=== PATIENT | male | born 1950 | race Caucasian/White ===

== ENCOUNTER 2018-12-20 13:53 | Inpatient (IN) ==
[2018-12-20 14:34] LABS: Bilirubin,Urine Negative (Negative); Blood,Urine Negative (Negative); Clarity,Urine Clear (Clear); Color,Urine Yellow (Yellow); Glucose,Urine (UA) Normal (Normal); Ketones,Urine Negative (Negative); Leukocyte Esterase,Urine Negative (Negative); Nitrite,Urine Negative (Negative); PH,Urine 5.5 pH Units (5.0-8.0); Protein,Urine Negative (Neg-Trace); Urobilinogen,Urine Normal (Normal)
[2018-12-20 15:10] LABS: Basophils % 0.1 %; Eosinophils # 0.2 K/mcL (0.0-0.6); Eosinophils % 2.8 %; Hematocrit 37.9 % (37.5-50.1); Hemoglobin 13.1 g/dL (12.9-16.9); Immature Granulocytes % 0.5 % (0-4); Lymphocytes # 0.9 K/mcL (0.6-4.6); Lymphocytes % 11.4 %; Mean Corpuscular HGB Conc 34.6 g/dL (31.6-35.5); Mean Corpuscular Hemoglobin 33.5 pg (28.0-33.3); Mean Corpuscular Volume 96.9 fL (83.0-100.0); Mean Platelet Volume 11.3 fL (9.4-12.4); Monocytes # 0.7 K/mcL (0.0-1.3); Monocytes % 7.9 %; Neutrophils # 6.4 K/mcL (1.6-8.9); Platelet Count 192 K/mcL (140-400); Red Blood Count 3.91 M/mcL (4.19-5.50); Red Cell Distribution Width 11.9 % (11.5-14.5); Segmented Neutrophils % 77.3 %
[2018-12-20 15:37] LABS: Calcium 9.2 mg/dL (8.6-10.3); Potassium 3.5 mEq/L (3.5-5.1)
[2018-12-20] MEDS ORDERED: Isovue-370 500 ML BOTTLE IVP ONE (17:12)
--- NOTE | 2018-12-20 17:38 | Emergency Department Note ---
Disposition Clinical Impression: AMISHA (acute kidney injury) Disposition: Admitted As Inpatient Condition: Fair Forms: ED Satisfaction Letter General Adult HPI - General Chief complaint: ED Recheck/Abnormal Lab/Rx Stated complaint: Renal Failure Time Seen by Provider: 12/20/18 16:04 Source: patient Limitations: no limitations - History of Present Illness HPI Narrative: Patient is a 68-year-old male presents to emergency room with complaints of possible kidney failure. The patient was getting preoperative testing earlier today, the patient apparently did have elevated creatinine and they were concerned for possible kidney failure. They sent him here to the emergency room for further evaluation. The patient is supposed to have a bladder surgery. The patient apparently has been having some difficulty with urination. Has been having abdominal discomfort with urination. He states over the past couple of days he has had some mild left lower quadrant abdominal discomfort that he rates about 3 and a 10 scale. Nothing makes his symptoms better or worse except for urination. Patient denies any hematuria, dysuria. The patient denies any fevers or chills. He has had no chest pain or shortness of breath. He does complain of some generalized weakness. The patient denies any back pain. The patient denies any rash. Pain Scale: 2 - Related Data Allergies Allergy/AdvReac Type Severity Reaction Status Date / Time No Known Allergies Allergy Verified 12/20/18 10:05 Review of Systems: As mentioned per history of present illness and as follows. Constitutional: Negative for chills or fever HENT: Negative for sore throat. Eyes: Negative for visual disturbance Respiratory: Negative for shortness of breath. Cardiovascular: Negative for palpitations. Gastrointestinal: Positive for abdominal pain Genitourinary: Negative for dysuria Musculoskeletal: Negative for back pain. Skin: Negative for rash. Neurological: Negative for focal weakness Psychiatric/Behavioral: Negative for depression Past Medical History - Past Medical History Medical history: Reports: hypertension Psychiatric history: Reports: no psych history - Social History Smoking Status: Never smoker Smokeless Tobacco Status: No Alcohol use: Reports: rarely Drug use: Reports: none Physical Exam PHYSICAL EXAM Constitutional: Well developed, Well nourished, No acute distress, Non-toxic appearance. HENT: Normocephalic, Atraumatic, Bilateral external ears normal, Oropharynx moist, No oral exudates, Nose normal. Neck- Normal range of motion, No tenderness, Supple. Eyes: PERRL, EOMI, Conjunctiva normal,. Cardiovascular: Regular rate and rhythm without clicks, rubs, gallops or murmurs. Respiratory: Normal breath sounds, No respiratory distress, No wheezing, rhonchi, or crackles. GI: Soft, mild tenderness to left lower quadrant exam, no evidence of guarding or peritoneal signs. Bowel sounds are active. Musculoskeletal: Good range of motion in all major joints. No tenderness to palpation or major deformities noted. +5/5 strength noted to all extremities. Integument: Warm, Dry, No erythema, No rash. No edema. Neurologic: Alert & oriented x 3, Normal sensory function, No focal deficits noted. CN II-XII grossly intact. - General Limitations: no limitations General appearance: alert, in no apparent distress Course Vital Signs Temperature 98.4 F 12/20/18 14:05 Pulse Rate 80 12/20/18 14:05 Respiratory Rate 14 12/20/18 14:05 Blood Pressure 149/80 12/20/18 14:05 O2 Sat by Pulse Oximetry 97 12/20/18 14:05 Temperature 98.4 F 12/20/18 14:05 Pulse Rate 79 12/20/18 17:22 Respiratory Rate 16 12/20/18 17:22 Blood Pressure 153/84 12/20/18 17:22 O2 Sat by Pulse Oximetry 100 12/20/18 17:22 Oxygen Delivery Oxygen Delivery Room Air Medical Decision Making - [facility] Narrative Medical decision making narrative: Patient has had evidence of acute kidney injury. The patient is having CAT scan that shows evidence of cystitis with hydroureter and hydronephrosis, no evidence of urinary tract infection. At this point time patient is not septic. The patient I do feel needs further evaluation and admission. The patient will be admitted in stable condition to the floor. Case was discussed in full detail with the hospitalist. Final impression 1. Acute kidney injury 2. Bilateral hydronephrosis - Lab Data Result diagrams: 12/20/18 14:49 12/20/18 14:49 Lab Results 12/20/18 12/20/18 12/20/18 Range/Units 14:25 14:49 14:49 WBC 8.3 (4.3-11.1) K/mcL RBC 3.91 L (4.19-5.50) M/mcL Hgb 13.1 (12.9-16.9) g/dL Hct 37.9 (37.5-50.1) % MCV 96.9 (83.0-100.0) fL MCH 33.5 H (28.0-33.3) pg MCHC 34.6 (31.6-35.5) g/dL RDW 11.9 (11.5-14.5) % Plt Count 192 (140-400) K/mcL MPV 11.3 (9.4-12.4) fL Immature Gran % 0.5 (0-4) % Seg Neutrophils % 77.3 % Lymphocytes % 11.4 % Monocytes % 7.9 % Eosinophils % 2.8 % Basophils % 0.1 % Neutrophils # 6.4 (1.6-8.9) K/mcL Lymphocytes # 0.9 (0.6-4.6) K/mcL Monocytes # 0.7 (0.0-1.3) K/mcL Eosinophils # 0.2 (0.0-0.6) K/mcL Basophils # 0.0 (0.0-0.2) K/mcL Sodium 145 (136-145) mEq/L Potassium 3.5 (3.5-5.1) mEq/L Chloride 107 (98-107) mEq/L Carbon Dioxide 27 (23-29) mEq/L BUN 34 H (8-23) mg/dL Creatinine 3.17 H (0.70-1.30) mg/dL Est GFR ( Amer) 24 L (> 60) Est GFR (Non-Af Amer) 20 L (> 60) BUN/Creatinine Ratio 11 (6-26) Glucose 137 H (70-105) mg/dL Calculated Osmolality 310 H (280-300) Calcium 9.2 (8.6-10.3) mg/dL Urine Color Yellow (Yellow) Urine Clarity Clear (Clear) Urine pH 5.5 (5.0-8.0) pH Units Ur Specific [place] 1.010 (1.010-1.025) Urine Protein Negative (Neg-Trace) mg/dL Urine Glucose (UA) Normal (Normal) mg/dL Urine Ketones Negative (Negative) mg/dL Urine Blood Negative (Negative) Urine Nitrite Negative (Negative) Urine Bilirubin Negative (Negative) Urine Urobilinogen Normal (Normal) mg/dL Ur Leukocyte Esterase Negative (Negative) Ur Culture Indicated? NO (NO) - Radiology Data Abdomen/Pelvis CT 12/20/18 17:15 IMPRESSION: 1. Prominent diffuse urinary bladder wall thickening and perivesicular stranding, which could be related to severe cystitis. Underlying malignancy cannot be excluded. Findings have progressed when compared to 11/30/2018. If not already done, correlation with cystoscopy is recommended. 2. Mild bilateral hydronephrosis and hydroureter, likely secondary to changes at the urinary bladder, increased from the previous study. No urolithiasis. 3. Hepatic steatosis. 4. Mild prostatomegaly. D/ / 12/20/2018 18:57:43 Patience Maciel / apolinar Interpreting Provider: Patience Maciel
[2018-12-20] MEDS ORDERED: *HR* HYDROcodone/Acet 5/325 mg TABLET PO PRN (21:09)
[2018-12-20] MEDS ORDERED: Acetaminophen 325 MG TABLET PO PRN (21:09)
[2018-12-20] MEDS ORDERED: Ondansetron ODT 4 MG TAB.RAPDIS SL PRN (21:09)
[2018-12-20] MEDS ORDERED: Naloxone 0.4 MG/ML INJ IVP PRN (21:09)
--- NOTE | 2018-12-20 21:44 | Internal Med History&Physical ---
<Viji Odonnell - Last Filed: 12/21/18 03:32> Date of Encounter: 12/21/18 Time of Encounter: 20:30 Internal Medicine - H&P: HPI Chief complaint: dysuria History of present illness: Mr. Meredith is a 68 year old male with past medical history of hypertension who was asked to present to the ED by his urologist due to laboratory findings of worsening renal function. He reports 6 weeks ago he started to have pain with urination and was treated by his PCP for a UTI. He reports after the antibiotics his pain did not resolve and was subsequently referred to a urologist. His urologist did a CT of the abdomen and pelvis on 11/23/18 which showed abnormal wall thickening of the urinary bladder on the left with nodular masslike appearance with pericystic stranding and concern for malignancy. He then underwent a cystoscopy on 12/06/18 which showed large mass seen on the posterior wall toward the trigone and the mass had some papillary components as well as inflammatory appearing components. He was scheduled to have surgical intervention but today had labs drawn at his urology office which showed creatinine of 3.21 and GFR of 19. He also reported not having a normal bowel movement in the past 1 month. And when asked he reported losing 10 pounds unintentionally since August 2018. In the ED his repeat labs show creatinine of 3.17 and GFR of 20 while on 11/30 his creatinine was 0.90 and GFR was also above 60. Today he is complaining of flank pain which is transient and described as stabbing in sensation. He is also complaining of pelvic pain and abdominal pain. Past Med Surg Social Fam HX - Past Medical History Medical history: hypertension Psychiatric history: no psych history - Past Surgical History Surgical History: appendectomy - Social History Smoking Status: Never smoker Smokeless Tobacco Status: No Alcohol use: rarely Drug use: none - Family History Mother Hx Family Cardiac Disorders: Yes (hypertension ) Internal Medicine - H&P: Meds Doxazosin [Cardura] 4 mg PO HS 12/20/18 [History] Lisinopril-HCTZ 10-12.5 [Prinzide 10-12.5] 1 each PO DAILY 12/20/18 [History] Allergy/AdvReac Type Severity Reaction Status Date / Time No Known Allergies Allergy Verified 12/20/18 10:05 All Systems PM: A 10-system review of systems was performed and is negative for pertinent findings except as documented above in the HPI. - Constitutional Constitutional: no chills, no fever(s), no weakness - EENT Eyes: no blurry vision, no loss of vision, no pain Nose, mouth and throat: no dysphagia, no mouth pain, no odynophagia - Cardiovascular Cardiovascular ROS IM: no chest pain, no diaphoresis, no dyspnea, no dyspnea on exertion, no palpitations - Respiratory Respiratory: no cough, no dyspnea, no dyspnea on exertion, no wheezing, no chest congestion - Gastrointestinal Gastrointestinal: no abdominal pain, no dysphagia, no hematemesis, no nausea, no vomiting - Genitourinary Genitourinary ROS male: dysuria, flank pain, urinary incontinence, no hematuria - Musculoskeletal Musculoskeletal ROS IM: back pain (bilateral flank), no numbness, no stiffness - Integumentary Integumentary IM: no erythema, no new lesions, no pruritus, no rash - Neurological Neurological ROS: no confusion, no numbness, no paresthesias, no tremor(s) - Psychiatric Psychiatric: no anxiety, no depression - Constitutional Vitals: Temp Pulse Resp BP Pulse Ox 98.4 F 74 16 175/81 100 12/20/18 14:05 12/20/18 20:46 12/20/18 20:46 12/20/18 20:46 12/20/18 20:46 Exam: Gen: Vitals noted. No acute distress. Appears comfortable. Eyes: anicteric sclerae, moist conjunctivae; no lid-lag; Pupils equal and reactive to light HENT: Atraumatic; oropharynx clear with moist mucous membranes and no mucosal ulcerations; normal hard and soft palate Neck: Trachea midline; supple, no thyromegaly or lymphadenopathy Cardiac: RRR, no murmur, +S1/S2. No JVD noted. Pulmonary: CTA bilaterally, no wheezes, rales or rhonchi, equal chest expansion Abdomen: soft, no guarding. No masses or hepatosplenomegaly, diffuse tenderness at all quadrants with worse tenderness in pelvic region MSK: ROM intact, no joint swelling noted, bilateral flank tenderness Extremities: no edema, nontender calf Skin: Normal temperature, turgor; no rash, ulcers or subcutaneous nodules Neuro: moves all extremities, no focal deficits. Psych: Appropriate mood and behavior. A&Ox3 Internal Med - H&P Results - Labs CBC & Chem 7: 12/20/18 14:49 12/20/18 14:49 Labs: Short CBC 12/20/18 Range/Units 14:49 WBC 8.3 (4.3-11.1) K/mcL Hgb 13.1 (12.9-16.9) g/dL Hct 37.9 (37.5-50.1) % Plt Count 192 (140-400) K/mcL Neutrophils # 6.4 (1.6-8.9) K/mcL BMP 12/20/18 14:49 Sodium 145 Potassium 3.5 Chloride 107 Carbon Dioxide 27 BUN 34 H Creatinine 3.17 H Glucose 137 H Calcium 9.2 Urine 12/20/18 Range/Units 14:25 Urine Color Yellow (Yellow) Urine Clarity Clear (Clear) Urine pH 5.5 (5.0-8.0) pH Units Ur Specific [place] 1.010 (1.010-1.025) Urine Protein Negative (Neg-Trace) mg/dL Urine Glucose (UA) Normal (Normal) mg/dL - Impressions ITS Impressions Abdomen/Pelvis CT 12/20/18 17:15 IMPRESSION: 1. Prominent diffuse urinary bladder wall thickening and perivesicular stranding, which could be related to severe cystitis. Underlying malignancy cannot be excluded. Findings have progressed when compared to 11/30/2018. If not already done, correlation with cystoscopy is recommended. 2. Mild bilateral hydronephrosis and hydroureter, likely secondary to changes at the urinary bladder, increased from the previous study. No urolithiasis. 3. Hepatic steatosis. 4. Mild prostatomegaly. D/ / 12/20/2018 18:57:43 Patience Maciel / apolinar Interpreting Provider: Patience Maciel - Assessment and Plan (1) Hydronephrosis Current Visit: Yes Status: Acute Assessment and plan: Noted to have bilateral hydronephrosis on CT Likely secondary to obstruction due to bladder mass He is producing urine But creatinine has increased to 3.17 with decrease in GFR CT of the abdomen and pelvis shows mild bilateral hydronephrosis and hydroureter Urology consulted for recommendations on the bladder mass Continue to monitor output Qualifiers: Hydronephrosis type: unspecified Qualified Code(s): N13.30 - Unspecified hydronephrosis (2) Bladder mass Current Visit: Yes Status: Acute Assessment and plan: Was following outpatient with Urology for dysuria Had a cystoscopy on 12/06/18 which showed masslike lesion in the bladder CT today shows: The urinary bladder is incompletely distended. There is moderate diffuse urinary bladder wall thickening and perivesicular stranding, which is increased from the previous study. Urology consulted NPO after midnight (3) Dysuria Current Visit: Yes Status: Acute Assessment and plan: Patient complaining of dysuria ongoing for 6 weeks Has been treated for UTI and urinalysis upon admission shows no concern for in fectious cause Likely secondary to the mass like lesion in the bladder Urinalysis shows no bacteria CT shows: Prominent diffuse urinary bladder wall thickening and perivesicular stranding, which could be related to severe cystitis. Underlying malignancy cannot be excluded. Findings have progressed when compared to 11/30/2018 Urology consulted (4) AMISHA (acute kidney injury) Current Visit: Yes Status: Acute Assessment and plan: AMISAH likely secondary to post renal due to suspected obstruction postrenally Urology consulted for recommendations for the bladder mass Will continue to monitor BMP Hold nephrotoxins to avoid further renal injury Continue post voidal bladder scan and if more than 100 cc of urine remains post voidal, insert archuleta Continue gentle hydration Nephrology consulted (5) Hypertension Current Visit: Yes Status: Acute Assessment and plan: Hold lisinopril given AMISHA Hydralazine PRN ordered Qualifiers: Hypertension type: essential hypertension Qualified Code(s): I10 - Essential (primary) hypertension (6) Constipation Current Visit: Yes Status: Acute Assessment and plan: Reports not having a normal bowel movement in the past month He denies any changes in his diet and had regular bowel movements previously He had a colonoscopy 8 years ago and elicits it was normal Ordered senna To rule out the etiology of the constipation he may require outpatient GI follow up given new onset of constipation Qualifiers: Constipation type: unspecified constipation type Qualified Code(s): K59.00 - Constipation, unspecified (7) DVT prophylaxis Current Visit: Yes Status: Acute Assessment and plan: SCD (8) BPH (benign prostatic hyperplasia) Current Visit: Yes Status: Acute Assessment and plan: Noted to have mild prostate enlargement on CT Continue home doxazosin Qualifiers: Lower urinary tract symptom presence: unspecified whether lower urinary tract symptoms present Qualified Code(s): N40.0 - Benign prostatic hyperplasia wi thout lower urinary tract symptoms - Time Spent With Patient Total time spent is greater than 50% in coordination of care (as documented) at patient's floor/unit and/or counseling patient: <Jarvis Bates - Last Filed: 12/21/18 06:41> Date of Encounter: 12/21/18 Time of Encounter: 06:05 - Constitutional Constitutional: fatigue, weight loss - Cardiovascular Cardiovascular ROS IM: no chest pain, no dyspnea - Respiratory Respiratory: no cough, no chest congestion, no change in phlegm color - Gastrointestinal Gastrointestinal: abdominal pain (suprapubic pain), constipation, no diarrhea, no hematemesis, no hematochezia, no melena, no nausea, no vomiting - Genitourinary Genitourinary ROS male: difficulty urinating, dysuria, flank pain, urinary incontinence, no hematuria - Musculoskeletal Musculoskeletal ROS IM: no arthralgias - Integumentary Integumentary IM: no erythema, no rash - Neurological Neurological ROS: no focal weakness, no frequent falls, no headache(s) - Psychiatric Psychiatric: no anxiety, no depression - Endocrine Endocrine IM: no polydipsia, no polyuria - Allergic/Immunologic Allergic/Immunologic: no GI upset with certain foods - Constitutional Vitals: Temp Pulse Resp BP Pulse Ox 98.7 F 73 14 151/83 96 12/21/18 03:35 12/21/18 03:35 12/21/18 03:35 12/21/18 03:35 12/21/18 03:35 General appearance: Present: cooperative, A&O X 3, pleasant, no acute distress, answers questions appropriately - Head Head exam: Present: normal inspection - Eye Eye exam: Present: EOMI, PERRL. Absent: scleral icterus Pupils: Present: normal accommodation - ENT ENT exam: Present: mucous membranes dry, normal exam, normal oropharynx - Neck Neck exam general surgery: Present: full ROM, supple, trachea midline. Absent: tenderness, nuchal rigidity, thyromegaly - Respiratory Respiratory exam: Present: CTAB. Absent: chest wall tenderness, rales, rhonchi, wheezes - Cardiovascular Cardiovascular exam: Present: RRR, +S1, +S2. Absent: diastolic murmur, systolic murmur - GI/Abdominal GI/Abdominal exam: Present: normal bowel sounds, soft, tenderness (suprapubic). Absent: guarding, hepatomegaly, mass, splenomegaly - Extremities Exam Extremities exam: Present: full ROM, warm, radial pulses palpable and symmetrical. Absent: calf tenderness, pedal edema, tenderness - Back Exam Back exam: Absent: CVA tenderness (L), CVA tenderness (R) - Neurological Exam Neurological exam: Present: alert, CN II-XII intact, no focal deficits, strengths equal and symetr throughout - Psychiatric Psychiatric exam: Present: normal affect, normal mood - Skin Skin exam: Present: dry, intact, warm Internal Med - H&P Results - Labs CBC & Chem 7: 12/20/18 14:49 12/20/18 14:49 Labs: Short CBC 12/20/18 Range/Units 14:49 WBC 8.3 (4.3-11.1) K/mcL Hgb 13.1 (12.9-16.9) g/dL Hct 37.9 (37.5-50.1) % Plt Count 192 (140-400) K/mcL Neutrophils # 6.4 (1.6-8.9) K/mcL BMP 12/20/18 14:49 Sodium 145 Potassium 3.5 Chloride 107 Carbon Dioxide 27 BUN 34 H Creatinine 3.17 H Glucose 137 H Calcium 9.2 Urine 12/20/18 Range/Units 14:25 Urine Color Yellow (Yellow) Urine Clarity Clear (Clear) Urine pH 5.5 (5.0-8.0) pH Units Ur Specific [place] 1.010 (1.010-1.025) Urine Protein Negative (Neg-Trace) mg/dL Urine Glucose (UA) Normal (Normal) mg/dL - Impressions ITS Impressions Abdomen/Pelvis CT 12/20/18 17:15 IMPRESSION: 1. Prominent diffuse urinary bladder wall thickening and perivesicular stranding, which could be related to severe cystitis. Underlying malignancy cannot be excluded. Findings have progressed when compared to 11/30/2018. If not already done, correlation with cystoscopy is recommended. 2. Mild bilateral hydronephrosis and hydroureter, likely secondary to changes at the urinary bladder, increased from the previous study. No urolithiasis. 3. Hepatic steatosis. 4. Mild prostatomegaly. D/ / 12/20/2018 18:57:43 Patience Maciel / apolinar Interpreting Provider: Patience Maciel - Diagnostic Studies CT scan - abdomen Status: image reviewed by me (bilateral hydronephrosis; bladder wall thickening) - Assessment and Plan (1) Dysuria Current Visit: Yes Status: Acute (2) AMISHA (acute kidney injury) Current Visit: Yes Status: Acute (3) Hydronephrosis Current Visit: Yes Status: Acute Qualifiers: Hydronephrosis type: unspecified Qualified Code(s): N13.30 - Unspecified hydronephrosis (4) DVT prophylaxis Current Visit: Yes Status: Acute (5) Constipation Current Visit: Yes Status: Acute Qualifiers: Constipation type: unspecified constipation type Qualified Code(s): K59.00 - Constipation, unspecified (6) Hypertension Current Visit: Yes Status: Acute Qualifiers: Hypertension type: essential hypertension Qualified Code(s): I10 - Essential (primary) hypertension (7) Bladder mass Current Visit: Yes Status: Acute (8) BPH (benign prostatic hyperplasia) Current Visit: Yes Status: Acute Qualifiers: Lower urinary tract symptom presence: unspecified whether lower urinary tract symptoms present Qualified Code(s): N40.0 - Benign prostatic hyperplasia without lower urinary tract symptoms - Time Spent With Patient Total time spent is greater than 50% in coordination of care (as documented) at patient's floor/unit and/or counseling patient: - Attending Attestation I discussed the patient TLINGIT & HAIDA, past medical history, review of systems, lab data, imaging data, and exam findings with Dr. Odonnell. I then saw and examined patient independently as well. I reviewed his old labs and reviewed his CT images from the ER. Patient appears to have new onset obstructive uropathy likely related to his suspected bladder tumor and/or prostate. Upon my assessment of the patient, he denies any hematuria. However, he has been having suprapubic tenderness, urgency, frequency, dysuria, and some flank pain since his cystoscopy about a week ago. He denies any fevers, chills, or night sweats. Appetite is diminished, and he's lost a few pounds of weight over the last several months. I discussed with him the need to monitor his postvoid residuals. If there is any significant urinary retention, he will likely need Archuleta placement. He states he has continued to have decent urine output, but he has been incontinent of urine since his cystoscopy last week. Urology has been consulted. We will consult nephrology as well given his acute kidney failure. However, this is most likely secondary to obstructive process as noted above. His urinalysis is clean and does not suggest UTI. Other than my comments above and documented exam findings, I agree with Dr. Odonnell's assessment and plan.
[2018-12-21] MEDS ORDERED: 0.9 % Sodium Chloride 1,000 ML IVC SCH (03:45)
--- NOTE | 2018-12-21 08:35 | Nephrology Consult Note ---
Date of Encounter: 12/21/18 Time of Encounter: 09:30 Assessment and Plan (1) AMISHA (acute kidney injury) Current Visit: Yes Status: Acute Non-oliguric AMISHA. CT of abdomen showed mild bilateral hydronephrosis and hydroureter. Most likely multifactorial as patient has recent history of IV contrast from the CT scan, also taking NSAIDs, on an JAIDEN inhibitor, and post- renal obstruction. Urology plans to place bilateral ureteral stents along with TURBT. JAIDEN inhibitor has been held and avoiding NSAIDS for pain relief at this time. With a UA not showing proteinuria or blood will hold off on GN or proteinuria work up for now. Will obtain urine eosinophils for AIN work-up. No need for dialysis at this time as patient is not uremic, potassium is wnl, non-oliguric. Will continue to monitor daily. plan: - continue NS at 75 ml/hr - urine eosinophils, urine Na, and urine Os pending - holding home medication of lisinopril - UA - negative - CT scan showed bilateral hydronephrosis - strict I&Os - avoid nephrotoxins - adjust medications for CrCl - diet: NPO (2) Dysuria Current Visit: Yes Status: Acute (3) Hydronephrosis Current Visit: Yes Status: Acute Urology following and plan to place bilateral ureteral stents. Qualifiers: Hydronephrosis type: unspecified Qualified Code(s): N13.30 - Unspecified hydronephrosis (4) DVT prophylaxis Current Visit: Yes Status: Acute (5) Constipation Current Visit: Yes Status: Acute Qualifiers: Constipation type: unspecified constipation type Qualified Code(s): K59.00 - Constipation, unspecified (6) Hypertension Current Visit: Yes Status: Acute Blood pressure currently being controlled by hydralazine 10mg IB Q6H prn. Qualifiers: Hypertension type: essential hypertension Qualified Code(s): I10 - Essential (primary) hypertension (7) Bladder mass Current Visit: Yes Status: Acute (8) BPH (benign prostatic hyperplasia) Current Visit: Yes Status: Acute Qualifiers: Lower urinary tract symptom presence: unspecified whether lower urinary tract symptoms present Qualified Code(s): N40.0 - Benign prostatic hyperplasia without lower urinary tract symptoms History of Present Illness - Reason for Consult Consult date: 12/21/18 Acute Kidney Injury Requesting physician: Viji Odonnell - Chief Complaint AMISHA - History of Present Illness Viri is a 68 y/o male with a pmh of HTN, no previous history of smoking who presented to the ED for elevated creatinine from the urology office. Nephrology consultation for AMISHA. About 6 weeks ago, patient was treated for a UTI for symptoms of dysuria. Patient is unsure of the antibiotic given but was taking it for 7 days twice a day by his PCP. He was sent to urology who did a CT abdomen and pelvis with IV contrast; per HPI, CT scan was done on 11/23/18 and creatinine was 0.90 and a GFR of > 60 on 11/30. Patient was seen by urology on 12/20 and noted creatinine now 3.21 therefore was sent to the ED for AMISHA. For the past couple of weeks, the patient was having back pain and began taking 2 tablets of aspirin, unsure of milligrams. His home medication includes lisinopril- hydrochlorothiazide which he has been on for years, no recent change in medication. He denies a family history of kidney disease. He continues to have suprapubic pain and dysuria, denies hematuria. He admits to weight loss. Past Med Surg Social Fam HX - Past Medical History Medical history: hypertension Psychiatric history: no psych history - Past Surgical History Surgical History: appendectomy - Social History Smoking Status: Never smoker Smokeless Tobacco Status: No Alcohol use: rarely Drug use: none - Family History Mother Hx Family Cardiac Disorders: Yes (hypertension ) Medications and Allergies Doxazosin [Cardura] 4 mg PO HS 12/20/18 [History] Lisinopril-HCTZ 10-12.5 [Prinzide 10-12.5] 1 each PO DAILY 12/20/18 [History] Allergy/AdvReac Type Severity Reaction Status Date / Time No Known Allergies Allergy Verified 12/20/18 10:05 Review of Systems Constitutional: as per HPI Exam - Vital Signs Vital signs: Initial Vital Signs Temp Pulse Resp BP Pulse Ox 98.4 F 80 14 149/80 97 12/20/18 14:05 12/20/18 14:05 12/20/18 14:05 12/20/18 14:05 12/20/18 14:05 Vital Signs - Last 8 Hours Temp Pulse Resp BP Pulse Ox 12/21/18 06:50 98.3 F 83 14 155/80 95 12/21/18 03:35 98.7 F 73 14 151/83 96 Intake and Output 12/20/18 12/21/18 12/21/18 23:59 07:59 15:59 Intake Total 360 / 360 Output Total 700 / 700 Balance 360 / 360 -700 / -700 Intake: Oral 360 / 360 Output: Urine 700 / 700 Other: Weight 84.6 kg 84.6 kg Patient Weight 12/21/18 23:59 Weight 84.6 kg - General Appearance Exam: Constitutional: Alert, in no acute distress Head: Normocephalic, atraumatic Heart: Normal, regular rate and rhythm, no murmurs Lungs: Clear to auscultation, no wheezes, rales, or rhonchi Abdomen: Soft, nondistended, tender suprapubic region, bowel sounds present and normal, no guarding or rigidity. Extremities: No edema, No clubbing, radial pulse +2/4, capillary refill <2sec. Skin: Skin warm and dry, no lesions, no rashes, no jaundice Neurologic: Cranial nerves II through XII grossly intact, Psych: Cooperative with exam, good eye contact, cognitive function intact, speech clear, thought process logical, and goal directed Results - Lab Results 12/20/18 14:49 12/20/18 14:49 Consult Discharge Plan - Plan Referrals: Sammy Guan MD [Primary Care Provider] -
--- NOTE | 2018-12-21 08:37 | Urology - Consult Note ---
<Marleny Goldsmith N - Last Filed: 12/21/18 08:32> Date of Encounter: 12/21/18 Time of Encounter: 08:00 - Assessment and Plan (1) AMISHA (acute kidney injury) Current Visit: Yes Status: Acute Assessment and plan: Patient is a 68-year-old male who presents with acute kidney injury with an elevated serum creatinine of 3.17 which is significantly above his baseline. Patient with known bladder tumor and worsening renal function. Patient is aware he may require nephrostomy tubes. Patient is prepared undergo TURBT and urinary diversion by ureteral stent placement later today with Dr. Ahuja. (2) Bladder mass Current Visit: Yes Status: Acute Assessment and plan: Patient is a 68-year-old male who presents with a posterior wall bladder tumor. We discussed surgical risks and benefits of transurethral resection of bladder tumor and bilateral ureteral stent placement. Patient verbalized understanding, and consent has been signed. Patient will remain nothing by mouth, and he is prepared undergo a transurethral resection of bladder tumor, bilateral retrograde pyelogram and bilateral ureteral stent placement later today with Dr. Ahuja. (3) Hydronephrosis Current Visit: Yes Status: Acute Assessment and plan: Patient is a 68-year-old male who presents with bilateral, new onset hydronephrosis. We discussed concern for patient's renal function. Patient is aware, and he wishes to proceed with bilateral ureteral stent placement along with TURBT. Qualifiers: Hydronephrosis type: unspecified Qualified Code(s): N13.30 - Unspecified hydronephrosis Urology CN:[facility] Consult date: 12/21/18 Reason for consult Urology: Other (bladder tumor; bilateral hydronephrosis) Requesting physician: Viji Odonnell History of present illness: Patient is a 68-year-old male who presents with a known bladder tumor, declining renal function and new onset bilateral hydronephrosis. Patient initially presented with complaint of dysuria to his PCP who treated him with outpatient oral antibiotics. The burning sensation failed to improve with antibiotic use, and patient was referred to urology for further evaluation. Dr. Magallon obtained a CT of the abdomen and pelvis revealing asymmetric bladder wall thickening. Patient underwent a cystoscopy on 12/06/2018 revealing a posterior wall bladder tumor. Patient was planning surgical resection of bladder tumor and underwent preadmission testing yesterday afternoon that revealed significant decline in renal function. Dr. Herrera notified patient of his results and advised him to go to the emergency department. Patient underwent a repeat CT of the abdomen and pelvis revealing bladder wall thickening and mild to moderate bilateral hydronephrosis. Patient admits to ongoing dysuria, frequency, urgency and noctu katerine. Patient also reports intermittent bilateral flank pain. Patient denies any gross hematuria or incontinence. Patient denies any known family history of malignancy. Patient denies any past history of tobacco use. Past Med Surg Social Fam HX - Past Medical History Medical history: hypertension Psychiatric history: no psych history - Past Surgical History Surgical History: appendectomy - Social History Smoking Status: Never smoker Smokeless Tobacco Status: No Alcohol use: rarely Drug use: none - Family History Mother Hx Family Cardiac Disorders: Yes (hypertension ) Medications and Allergies Doxazosin [Cardura] 4 mg PO HS 12/20/18 [History] Lisinopril-HCTZ 10-12.5 [Prinzide 10-12.5] 1 each PO DAILY 12/20/18 [History] Allergy/AdvReac Type Severity Reaction Status Date / Time No Known Allergies Allergy Verified 12/20/18 10:05 Review of Systems - Constitutional no chills, no fatigue, no fever(s) - EENT Nose, mouth and throat: no dizziness, no headache(s) - Cardiovascular no chest pain, no diaphoresis, no dyspnea - Respiratory no cough, no dyspnea - Gastrointestinal abdominal pain, no nausea, no vomiting - Genitourinary dysuria, nocturia, urinary frequency, urinary urgency, no change in urinary stream, no difficulty urinating, no hematuria, no urinary hesitancy, no urinary incontinence - Musculoskeletal back pain, no muscle weakness - Integumentary no erythema, no rash - Neurological no confusion, no syncope - Psychiatric no anxiety, no confusion - Hematologic/Lymphatic no easy bleeding, no easy bruising - Allergic/Immunologic no throat swelling, no wheezing Exam Initial Vital Signs Temp Pulse Resp BP Pulse Ox 98.4 F 80 14 149/80 97 12/20/18 14:05 12/20/18 14:05 12/20/18 14:05 12/20/18 14:05 12/20/18 14:05 - General physical appearance Present: well developed, no distress, no pain - Eyes Present: PERRL, normal ocular movement - ENT Present: normal nares, no hearing loss, no congestion - Neck Present: no masses, trachea midline, no lymphadenopathy - Respiratory Present: normal respiratory effort - Cardiovascular Cardiovascular exam IM: RRR - Abdomen Abdomen: Present: soft, non tender. Absent: distended - Genitourinary other (Urine is transparent, clear yellow; no CVAT) - Integumentary Present: no rash, no abnormal pigmentation - Neurologic Present: normal coordination - Musculoskeletal Present: other (Normal posture) Urology Results - Labs 12/20/18 14:49 12/20/18 14:49 Abnormal lab results RBC 3.91 M/mcL (4.19-5.50) L 12/20/18 14:49 MCH 33.5 pg (28.0-33.3) H 12/20/18 14:49 BUN 34 mg/dL (8-23) H 12/20/18 14:49 3.17 mg/dL (0.70-1.30) H 12/20/18 14:49 Est GFR ( Amer) 24 (> 60) L 12/20/18 14:49 Est GFR (Non-Af Amer) 20 (> 60) L 12/20/18 14:49 Glucose 137 mg/dL (70-105) H 12/20/18 14:49 310 (280-300) H 12/20/18 14:49 Diabetes panel 12/20/18 Range/Units 14:49 Sodium 145 (136-145) mEq/L Potassium 3.5 (3.5-5.1) mEq/L Chloride 107 (98-107) mEq/L Carbon Dioxide 27 (23-29) mEq/L BUN 34 H (8-23) mg/dL Creatinine 3.17 H (0.70-1.30) mg/dL Glucose 137 H (70-105) mg/dL Calcium 9.2 (8.6-10.3) mg/dL Calcium panel 12/20/18 Range/Units 14:49 Calcium 9.2 (8.6-10.3) mg/dL Pituitary panel 12/20/18 Range/Units 14:49 Sodium 145 (136-145) mEq/L Potassium 3.5 (3.5-5.1) mEq/L Chloride 107 (98-107) mEq/L Carbon Dioxide 27 (23-29) mEq/L BUN 34 H (8-23) mg/dL Creatinine 3.17 H (0.70-1.30) mg/dL Glucose 137 H (70-105) mg/dL Calcium 9.2 (8.6-10.3) mg/dL Adrenal panel 12/20/18 Range/Units 14:49 Sodium 145 (136-145) mEq/L Potassium 3.5 (3.5-5.1) mEq/L Chloride 107 (98-107) mEq/L Carbon Dioxide 27 (23-29) mEq/L BUN 34 H (8-23) mg/dL Creatinine 3.17 H (0.70-1.30) mg/dL Glucose 137 H (70-105) mg/dL Calcium 9.2 (8.6-10.3) mg/dL All other labs normal. - Imaging CT scan - abdomen: report reviewed, image reviewed CT scan - pelvis: report reviewed, image reviewed Consult Discharge Plan - Plan Referrals: Sammy Guan MD [Primary Care Provider] - <Nicola Ahuja - Last Filed: 12/21/18 12:11> Date of Encounter: 12/21/18 - Assessment and Plan (1) Bladder mass Current Visit: Yes Status: Acute Assessment and plan: pt seen and examined in conjunction with PA. Agree with assessment. proceed with TURBT and attempted bilateral stent placement. we discussed procedure. he understands risk - bleeding, injury to urinary tract, perforation of bladder, stricture. it is also possible that I wont be able to place the stents bc of bladder wall issues. Exam Initial Vital Signs Temp Pulse Resp BP Pulse Ox 98.4 F 80 14 149/80 97 12/20/18 14:05 12/20/18 14:05 12/20/18 14:05 12/20/18 14:05 12/20/18 14:05 Urology Results - Labs 12/20/18 14:49 12/20/18 14:49 Abnormal lab results RBC 3.91 M/mcL (4.19-5.50) L 12/20/18 14:49 MCH 33.5 pg (28.0-33.3) H 12/20/18 14:49 BUN 34 mg/dL (8-23) H 12/20/18 14:49 3.17 mg/dL (0.70-1.30) H 12/20/18 14:49 Est GFR ( Amer) 24 (> 60) L 12/20/18 14:49 Est GFR (Non-Af Amer) 20 (> 60) L 12/20/18 14:49 Glucose 137 mg/dL (70-105) H 12/20/18 14:49 310 (280-300) H 12/20/18 14:49 Diabetes panel 12/20/18 Range/Units 14:49 Sodium 145 (136-145) mEq/L Potassium 3.5 (3.5-5.1) mEq/L Chloride 107 (98-107) mEq/L Carbon Dioxide 27 (23-29) mEq/L BUN 34 H (8-23) mg/dL Creatinine 3.17 H (0.70-1.30) mg/dL Glucose 137 H (70-105) mg/dL Calcium 9.2 (8.6-10.3) mg/dL Calcium panel 12/20/18 Range/Units 14:49 Calcium 9.2 (8.6-10.3) mg/dL Pituitary panel 12/20/18 Range/Units 14:49 Sodium 145 (136-145) mEq/L Potassium 3.5 (3.5-5.1) mEq/L Chloride 107 (98-107) mEq/L Carbon Dioxide 27 (23-29) mEq/L BUN 34 H (8-23) mg/dL Creatinine 3.17 H (0.70-1.30) mg/dL Glucose 137 H (70-105) mg/dL Calcium 9.2 (8.6-10.3) mg/dL Adrenal panel 12/20/18 Range/Units 14:49 Sodium 145 (136-145) mEq/L Potassium 3.5 (3.5-5.1) mEq/L Chloride 107 (98-107) mEq/L Carbon Dioxide 27 (23-29) mEq/L BUN 34 H (8-23) mg/dL Creatinine 3.17 H (0.70-1.30) mg/dL Glucose 137 H (70-105) mg/dL Calcium 9.2 (8.6-10.3) mg/dL All other labs normal.
--- NOTE | 2018-12-21 11:21 | Anesthesia Evaluation PreOp ---
Date of Encounter: 12/21/18 Time of Encounter: 11:19 - Past History Planned Operation: TURBT, JAGUAR URETRAL STENTS Cardiac History: HTN Other Medical History: Renal (BLADDER MASS, DYSURIA, JAGUAR HYDRONEPHROSIS, AMISHA) Anesthesia History: No Prior Anesthetic Complications, Past Anesthesia Alcohol Use: rarely Drug use: none Medications and Allergies Doxazosin [Cardura] 4 mg PO HS 12/20/18 [History] Lisinopril-HCTZ 10-12.5 [Prinzide 10-12.5] 1 each PO DAILY 12/20/18 [History] Allergy/AdvReac Type Severity Reaction Status Date / Time No Known Allergies Allergy Verified 12/20/18 10:05 - Meds/Allergy Pre-op Review Medications Reviewed: Yes Allergies Reviewed: Yes Anesthesia Results - Labs 12/20/18 14:49 12/20/18 14:49 Anesthesia Exam Vital Signs/O2 Sat, Most Current Temp Pulse Resp BP Pulse Ox 98.3 F 83 14 155/80 95 12/21/18 06:50 12/21/18 06:50 12/21/18 06:50 12/21/18 06:50 12/21/18 06:50 Weight: 85 KG - BMI 27 NPO (# of Hours): 8 - HEENT Mallampati: II Teeth: Normal - Cardiac Rhythm: Regular - Pulmonary Breath Sounds: bilateral Clear Anesthesia Assess/Plan ASA Score: 3 Anesthetic Plan: General Monitoring Plan: Standard Monitors Recovery Plan: PACU
[2018-12-21] MEDS ORDERED: *HR* OxyCODONE Immed Rel 5 MG TABLET PO PRN (11:22)
[2018-12-21] MEDS ORDERED: Albuterol 2.5 MG/3 ML NEBULIZER IH ONE ×2 (11:22→13:55)
[2018-12-21] MEDS ORDERED: *HR* HYDROmorphone (PF) 1 MG/ML SYRINGE IVP PRN (11:22)
[2018-12-21] MEDS ORDERED: *HR* Promethazine 25 MG/ML VIAL IVP PRN (11:22)
[2018-12-21] MEDS ORDERED: Ondansetron 4 MG/2 ML VIAL IVP ONE (11:22)
[2018-12-21] MEDS ORDERED: Isovue-300 50 ML VIAL ONE (11:56)
[2018-12-21] MEDS ORDERED: CeFAZolin Syr 2,000MG/20 ML 2,000 MG/20 ML SYRINGE IVPB ONE (12:00)
[2018-12-21] MEDS ORDERED: *HR* FentaNYL (PF) 100 MCG/2 ML VIAL ONE (12:01)
[2018-12-21] MEDS ORDERED: *HR* Propofol 200 MG/20 ML VIAL IVP ONE (12:01)
[2018-12-21] MEDS ORDERED: *HR* Midazolam HCl 2 MG/2 ML VIAL ONE (12:01)
[2018-12-21] MEDS ORDERED: Acetaminophen IV 1,000 MG/100 ML INFUS..BTL ONE (12:08)
[2018-12-21] MEDS ORDERED: Ondansetron 4 MG/2 ML VIAL ONE (12:18)
[2018-12-21] MEDS ORDERED: Lidocaine -MPF 2% 2 ML VIAL ONE (12:18)
[2018-12-21] MEDS ORDERED: Dexamethasone 4 MG/ML VIAL ONE (12:36)
--- NOTE | 2018-12-21 13:37 | Anesthesia Evaluation Post Op ---
Date of Encounter: 12/21/18 Time of Encounter: 13:37 - Vital Signs Vital Signs: Vital Signs/O2 Sat/Glucose, Most Recent Temp Pulse Resp BP Pulse Ox 98.9 F 74 14 161/81 96 12/21/18 13:32 12/21/18 13:32 12/21/18 13:32 12/21/18 13:32 12/21/18 13:32 - Lungs Lungs: Clear Ascult./Percussion - Airway Airway: Non-obstructed - Cardiovascular Regular Rate - Mental Status Mental Status: Alert & Oriented, Answers Appropriately - Pain Pain Scale: 1 - Nausea Vomiting Nausea Vomiting: Not Present - Hydration Hydration: Tolerates oral liquids - Discharge PostOp Status: Transfer Patient to floor
[2018-12-21] MEDS ORDERED: *HR* Belladonna Alkaloids/Opium 30 MG RECTAL SUPPOSITORY RC PRN (13:55)
[2018-12-21] MEDS ORDERED: Ondansetron ODT 4 MG TAB.RAPDIS SL PRN (13:55)
[2018-12-21] MEDS ORDERED: Acetaminophen 325 MG TABLET PO PRN (13:55)
[2018-12-21] MEDS ORDERED: *HR* HYDROcodone/Acet 5/325 mg TABLET PO PRN (13:55)
[2018-12-21] MEDS: ceFAZolin 1,000 MG in Water for inj. (sterile) 20 ML 10 ML IVP SCH (15:54)
[2018-12-21] MEDS: 0.9 % Sodium Chloride 1,000 ML IVC SCH (15:58)
--- NOTE | 2018-12-21 17:05 | Operative Note ---
Date of procedure: 12/21/18 Pre-op diagnosis: Bilateral hydronephrosis. bladder mass Post-op diagnosis: same Procedure: medium TURBT 3-4 cm size cystoscopy with bilateral retrograde pyelograms and JJ stent placement. Anesthesia: GETA Surgeon: Nicola Ahuja Was there an commercial lines account assistant present: No Estimated blood loss (cc): 5 Specimen: bladder tumor Condition: stable Disposition: PACU Procedure in Detail: PROCEDURE IN DETAIL: Patient was taken back to the operating room, positioned supine on the operating table. Anesthesia was applied without complication. They were moved into dorsal lithotomy. Careful attention was maintained to cushion pressure points for patient's safety. The patient was prepped and draped in sterile fashion. Time-out was performed to confirm the proper patient and procedure. 21 upper sorbian rigid cystoscope was inserted into the bladder without difficulty. Systematic examination of bladder revealed a globally abnormal bladder. Majority of the mucosa was quite edematous. I was able to identify a nodular exophytic tumor on the posterior bladder wall trending towards the dome. By appearance it appeared quite high grade. Bilateral retrograde pyelograms were performed by cannulating each ureteral orifice with a 5-Kyrgyz ureteral catheter and injecting isovue. Retrograde pyelograms revealed hydroureter. The left side was much more severe than the right. I was able to place 6 x 26 ureteral stents bilaterally. I removed the cystoscope and placed the resectoscope with visual obturator. Once the resectoscope was in position, a 22-Kyrgyz loop with a coagulation/cut settings of 80/80 was used to resect the nodular portion of the tumor entirety. I estimated size between 3 and 4 cm. I elected not to address the edematous bladder mucosa as I suspect this was reaction rather than malignancy. There was no obturator reflex during the procedure. I felt that I resected deep into the bladder wall but did not encounter normal bladder wall architecture including muscle fibers. I suspect this is a high grade invasive tumor based on these findings. Hemostasis was controlled with the loop and minimal bleeding was observed after the procedure. All tumor chips were removed from the bladder through the resectoscope and sent for permanent specimen. I emptied and filled the bladder a few times to confirm hemostasis. They were brought out of anesthesia in stable condition. I did place a three-way 20-Kyrgyz catheter.
--- NOTE | 2018-12-21 17:32 | Internal Med Progress Note ---
Hospitalist Progress Note - Encounter Date of Encounter: 12/21/18 Time of Encounter: 17:29 - Subjective Interval History: Pt denies fever, chills, N/V or diarrhea. Denies chest pain or SOB. Denies abdominal/flank pain. - Exam Vitals: Temp Pulse Resp BP Pulse Ox 98.6 F 61 14 135/73 96 12/21/18 15:45 12/21/18 15:45 12/21/18 15:45 12/21/18 15:45 12/21/18 15:45 Exam: Exam: Gen: Vitals noted. No acute distress. Appears comfortable. Eyes: anicteric sclerae, moist conjunctivae; no lid-lag; Pupils equal and reactive to light HENT: Atraumatic; oropharynx clear with moist mucous membranes and no mucosal ulcerations; normal hard and soft palate Neck: Trachea midline; supple, no thyromegaly or lymphadenopathy Cardiac: RRR, no murmur, +S1/S2. No JVD noted. Pulmonary: CTA bilaterally, no wheezes, rales or rhonchi, equal chest expansion Abdomen: soft, no guarding. No masses or hepatosplenomegaly, diffuse tenderness at all quadrants with worse tenderness in pelvic region MSK: ROM intact, no joint swelling noted, bilateral flank tenderness Extremities: no edema, nontender calf Skin: Normal temperature, turgor; no rash, ulcers or subcutaneous nodules Neuro: moves all extremities, no focal deficits. Psych: Appropriate mood and behavior. A&Ox3 - Assessment and Plan (1) Dysuria Current Visit: Yes Status: Acute Assessment and Plan: Patient complaining of dysuria ongoing for 6 weeks Has been treated for UTI and urinalysis upon admission shows no concern for infectious cause Likely secondary to the mass like lesion in the bladder Urinalysis shows no bacteria CT shows: Prominent diffuse urinary bladder wall thickening and perivesicular stranding, which could be related to severe cystitis. Underlying malignancy cannot be excluded. Findings have progressed when compared to 11/30/2018 Urology consulting. See above for management (2) AMISHA (acute kidney injury) Current Visit: Yes Status: Acute Assessment and Plan: AMISHA likely secondary to post renal due to suspected obstruction post renally Urology consulted for recommendations for the bladder mass Will continue to monitor BMP Hold nephrotoxins to avoid further renal injury Continue post voidal bladder scan and if more than 100 cc of urine remains post voidal, insert archuleta Continue gentle hydration Nephrology consulted (3) Hydronephrosis Current Visit: Yes Status: Acute Assessment and Plan: Noted to have bilateral hydronephrosis on CT Likely secondary to obstruction due to bladder mass He is producing urine But creatinine has increased to 3.17 with decrease in GFR. CT of the abdomen and pelvis shows mild bilateral hydronephrosis and hydroureter Urology consulted for recommendations on the bladder mass and he is s/p TURBT with stent placement. Will monitor renal function QD (4) Constipation Current Visit: Yes Status: Acute Assessment and Plan: Reports not having a normal bowel movement in the past month He denies any changes in his diet and had regular bowel movements previously He had a colonoscopy 8 years ago and elicits it was normal. Ordered senna To rule out the etiology of the constipation he may require outpatient GI follow up given new onset of constipation (5) Hypertension Current Visit: Yes Status: Acute Assessment and Plan: Hold lisinopril given AMISHA Hydralazine PRN ordered (6) Bladder mass Current Visit: Yes Status: Acute Assessment and Plan: Was following outpatient with Urology for dysuria Had a cystoscopy on 12/06/18 which showed mass like lesion in the bladder CT today shows: The urinary bladder is incompletely distended. There is mo derate diffuse urinary bladder wall thickening and perivesicular stranding, which is increased from the previous study. Urology consulted and is s/p TURBT day #0 also had cystoscopy with bilateral retrograde pyelograms and JJ stent placement. (7) BPH (benign prostatic hyperplasia) Current Visit: Yes Status: Acute Assessment and Plan: Noted to have mild prostate enlargement on CT Continue home doxazosin DVT Prophylaxis: SCD - Summary of Assessment and Plan Summary of Assessment and Plan: History of present illness: Dr. Jarvis Bates Mr. Meredith is a 68 year old male with past medical history of hypertension who was asked to present to the ED by his urologist due to laboratory findings of worsening renal function. He reports 6 weeks ago he started to have pain with urination and was treated by his PCP for a UTI. He reports after the antibiotics his pain did not resolve and was subsequently referred to a urologist. His urologist did a CT of the abdomen and pelvis on 11/23/18 which showed abnormal wall thickening of the urinary bladder on the left with nodular masslike appearance with pericystic stranding and concern for malignancy. He then underwent a cystoscopy on 12/06/18 which showed large mass seen on the posterior wall toward the trigone and the mass had some papillary components as well as inflammatory appearing components. He was scheduled to have surgical intervention but today had labs drawn at his urology office which showed creatinine of 3.21 and GFR of 19. He also reported not having a normal bowel movement in the past 1 month. And when asked he reported losing 10 pounds unintentionally since August 2018. In the ED his repeat labs show creatinine of 3.17 and GFR of 20 while on 11/30 his creatinine was 0.90 and GFR was also above 60. Today he is complaining of flank pain which is transient and described as stabbing in sensation. He is also complaining of pelvic pain and abdominal pain. - Time Spent with Patient Total time spent is greater than 50% in coordination of care (as documented) at patient's floor/unit and/or counseling patient: less than 15 minutes Plan of Care Discussed with: patient Internal Medicine: Result - Labs CBC & Chem 7: 12/20/18 14:49 12/20/18 14:49 - Impressions Impressions Abdomen/Pelvis CT 12/20/18 17:15 IMPRESSION: 1. Prominent diffuse urinary bladder wall thickening and perivesicular stranding, which could be related to severe cystitis. Underlying malignancy cannot be excluded. Findings have progressed when compared to 11/30/2018. If not already done, correlation with cystoscopy is recommended. 2. Mild bilateral hydronephrosis and hydroureter, likely secondary to changes at the urinary bladder, increased from the previous study. No urolithiasis. 3. Hepatic steatosis. 4. Mild prostatomegaly. D/ / 12/20/2018 18:57:43 Patience Maciel / apolinar Interpreting Provider: Patience Maciel Retrograde Pyelogram 12/21/18 00:00 IMPRESSION: Intraprocedural fluoroscopic spot images as above. See separate procedure report for more information. D/ / 12/21/2018 12:54:06 Jeremy Spence MD / talib Interpreting Provider: Jeremy Spence MD Consult Discharge Plan - Plan Referrals: Sammy Guan MD [Primary Care Provider] - _ (3) Hydronephrosis Qualifiers: Hydronephrosis type: unspecified Qualified Code(s): N13.30 - Unspecified hydronephrosis (4) Constipation Qualifiers: Constipation type: unspecified constipation type Qualified Code(s): K59.00 - Constipation, unspecified (5) Hypertension Qualifiers: Hypertension type: essential hypertension Qualified Code(s): I10 - Essential (primary) hypertension (7) BPH (benign prostatic hyperplasia) Qualifiers: Lower urinary tract symptom presence: unspecified whether lower urinary tract symptoms present Qualified Code(s): N40.0 - Benign prostatic hyperplasia without lower urinary tract symptoms
[2018-12-21] MEDS: Sennosides 8.6 MG TABLET PO SCH (20:10)
[2018-12-21] MEDS ORDERED: Sennosides 8.6 MG TABLET PO SCH (21:00)
[2018-12-22] MEDS: ceFAZolin 1,000 MG in Water for inj. (sterile) 20 ML 10 ML IVP SCH ×3 (00:08→16:06)
[2018-12-22 04:37] LABS: Potassium 3.2 mEq/L (3.5-5.1)
--- NOTE | 2018-12-22 07:09 | Urology Progress Note ---
Date of Encounter: 12/22/18 Time of Encounter: 07:08 - Assessment and Plan (1) Bladder mass Current Visit: Yes Status: Acute Assessment and plan: Renal function has improved drastically and creatinine is around 1.8. Will remove Marks catheter. We will need to await pathology which will be discussed as an outpatient. Patient can be discharged from a urology standpoint as early as today Progress Note Narrative: Feels better except for catheter discomfort. No clot retention overnight. Objective Initial Vital Signs Temp Pulse Resp BP Pulse Ox 98.4 F 80 14 149/80 97 12/20/18 14:05 12/20/18 14:05 12/20/18 14:05 12/20/18 14:05 12/20/18 14:05 - General physical appearance Present: no distress - Additional Exam Urine relatively clear off CBI - Labs 12/20/18 14:49 12/22/18 03:10 Diabetes panel 12/22/18 Range/Units 03:10 Sodium 145 (136-145) mEq/L Potassium 3.2 L (3.5-5.1) mEq/L Chloride 107 (98-107) mEq/L Carbon Dioxide 26 (23-29) mEq/L BUN 27 H (8-23) mg/dL Creatinine 1.83 H (0.70-1.30) mg/dL Glucose 131 H (70-105) mg/dL Calcium 9.0 (8.6-10.3) mg/dL Calcium panel 12/22/18 Range/Units 03:10 Calcium 9.0 (8.6-10.3) mg/dL Pituitary panel 12/22/18 Range/Units 03:10 Sodium 145 (136-145) mEq/L Potassium 3.2 L (3.5-5.1) mEq/L Chloride 107 (98-107) mEq/L Carbon Dioxide 26 (23-29) mEq/L BUN 27 H (8-23) mg/dL Creatinine 1.83 H (0.70-1.30) mg/dL Glucose 131 H (70-105) mg/dL Calcium 9.0 (8.6-10.3) mg/dL Adrenal panel 12/22/18 Range/Units 03:10 Sodium 145 (136-145) mEq/L Potassium 3.2 L (3.5-5.1) mEq/L Chloride 107 (98-107) mEq/L Carbon Dioxide 26 (23-29) mEq/L BUN 27 H (8-23) mg/dL Creatinine 1.83 H (0.70-1.30) mg/dL Glucose 131 H (70-105) mg/dL Calcium 9.0 (8.6-10.3) mg/dL Consult Discharge Plan - Plan Referrals: Sammy Guan MD [Primary Care Provider] -
[2018-12-22] MEDS: 0.9 % Sodium Chloride 1,000 ML IVC SCH (08:51)
--- NOTE | 2018-12-22 14:10 | Nephrology Progress Note ---
Date of Encounter: 12/22/18 Time of Encounter: 08:50 - Assessment and Plan (1) AMISHA (acute kidney injury) Current Visit: Yes Status: Acute Non-oliguric AMISHA. CT of abdomen showed mild bilateral hydronephrosis and hydroureter. Most likely multifactorial as patient has recent history of IV contrast from the CT scan, also taking NSAIDs, on an JAIDEN inhibitor, and post- renal obstruction. JAIDEN inhibitor has been held and avoiding NSAIDS for pain relief at this time. With a UA not showing proteinuria or blood will hold off on GN or proteinuria work up for now. Patient is s/p bilateral ureteral stents along with TURBT. Creatinine remarkably improving since TURBT procedure and rehydration. No need for further wokr up at this time. Patient overall fluid balance was negative over 3.5L. Patient's output ws 2000ml before 8AM. 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 Will need to monitor fluids and electrolytes as patient can easily become hypovolemic, hypokalemic, and hypernatremic. Will repeat BMP and Mg in the afternoon to mon itor this. Patient is already hypokalemic and we will replace with KCl 40meq PO X 2. We will start with 1/2NS 75ml/hr to help replenish. Patient had catheter removed this morning and states that he feels like he is not completely voiding, communication order placed for bladder scan. Will start Flomax 0.4mg daily. plan: - start 1/2 NS at 75 ml/hr - repeat BMP in the afternoon to check electrolytes - bladder scan to assure no obstruction - start flowmax 0.4mg daily - holding home medication of lisinopril - UA - negative - CT scan showed bilateral hydronephrosis - strict I&Os - avoid nephrotoxins - adjust medications for CrCl - diet: renal diet (2) Dysuria Current Visit: Yes Status: Acute (3) Hydronephrosis Current Visit: Yes Status: Acute Qualifiers: Hydronephrosis type: unspecified Qualified Code(s): N13.30 - Unspecified hydronephrosis (4) Constipation Current Visit: Yes Status: Acute Qualifiers: Constipation type: unspecified constipation type Qualified Code(s): K59.00 - Constipation, unspecified (5) Hypertension Current Visit: Yes Status: Acute Qualifiers: Hypertension type: essential hypertension Qualified Code(s): I10 - Essential (primary) hypertension (6) Bladder mass Current Visit: Yes Status: Acute (7) BPH (benign prostatic hyperplasia) Current Visit: Yes Status: Acute Qualifiers: Lower urinary tract symptom presence: unspecified whether lower urinary tract symptoms present Qualified Code(s): N40.0 - Benign prostatic hyperplasia without lower urinary tract symptoms Subjective Principal diagnosis: AMISHA Interval history: Viri is a 68 y/o male with a pmh of HTN, no previous history of smoking who presented to the ED for elevated creatinine from the urology office. Nephrology consultation for AMISHA. Patient is s/p TURBT. He is currently resting in bed. Archuleta catheter was removed this morning. He does have some suprapubic pain which he had before the surgery but he feels like he is not completely emptying when he tries to void. He Objective - Vital Signs Vital signs: Vital Signs Temp Pulse Resp BP Pulse Ox 12/22/18 10:01 98.6 F 79 15 128/70 99 12/22/18 07:00 98.7 F 73 15 136/72 96 12/22/18 04:22 98.3 F 63 16 138/69 96 12/22/18 00:09 98.2 F 71 15 121/63 95 12/21/18 19:02 98.3 F 82 15 136/77 97 12/21/18 17:00 98.4 F 67 16 141/82 95 12/21/18 15:45 98.6 F 61 14 135/73 96 12/21/18 14:57 97.6 F 61 15 149/78 95 12/21/18 14:40 98.1 F 63 16 140/78 96 Intake and Output 12/21/18 12/22/18 12/22/18 23:59 07:59 15:59 Intake Total 250 / 250 1010 / 1490 480 / 1490 Output Total 1400 / 2405 2000 / 2500 500 / 2500 Balance -1150 / -2155 -990 / -1010 -20 / -1010 Intake: IV Fluids 1010 / 1010 0.9 % Sodium Chloride 1,000 ML 1000 / 1000 @ 75 mls/hr IVC .[id number] [facility] Rx #:[id number] Ancef 1,000 MG In Water for inj . (sterile) 10 ML @ 200 mls/hr IVP Q8HR [facility] Rx#:[id number] Oral 240 / 240 0 / 480 480 / 480 Output: Catheter 1400 / 1400 2000 / 2500 500 / 2500 Other: Meal Dinner Lunch Percent of Meal Consumed 100% 100% Weight 84.6 kg Patient Weight 12/22/18 23:59 Weight 84.6 kg - General Appearance Exam: Constitutional: Alert, in no acute distress, Head: Normocephalic, atraumatic Heart: Normal, regular rate and rhythm, no murmurs Lungs: Clear to auscultation, no wheezes, rales, or rhonchi Abdomen: Soft, nondistended, tender suprapubic region, bowel sounds present and normal, no guarding or rigidity. Extremities: No edema, No clubbing, capillary refill <2sec. : archuleta catheter removed, urine is red/brown Skin: Skin warm and dry, no lesions, no rashes, no jaundice Neurologic: Cranial nerves II through XII grossly intact, Psych: Cooperative with exam, good eye contact, cognitive function intact, speech clear, thought process logical, and goal directed - Lab 12/20/18 14:49 12/22/18 03:10 Most recent lab results 12/22/18 03:10 Calcium 9.0 Consult Discharge Plan - Plan Referrals: Sammy Guan MD [Primary Care Provider] -
[2018-12-22 16:29] LABS: Calcium 9.7 mg/dL (8.6-10.3); Potassium 3.3 mEq/L (3.5-5.1)
--- NOTE | 2018-12-22 16:43 | Internal Med Progress Note ---
Hospitalist Progress Note - Encounter Date of Encounter: 12/22/18 Time of Encounter: 16:39 - Subjective Interval History: Pt denies fever, chills, N/V or diarrhea. Denies chest pain or SOB. Denies abdominal/flank pain. - Exam Vitals: Temp Pulse Resp BP Pulse Ox 98.4 F 88 15 166/80 97 12/22/18 14:14 12/22/18 14:14 12/22/18 14:14 12/22/18 14:14 12/22/18 14:14 Exam: Exam: Gen: Vitals noted. No acute distress. Appears comfortable. Eyes: anicteric sclerae, moist conjunctivae; no lid-lag; Pupils equal and reactive to light HENT: Atraumatic; oropharynx clear with moist mucous membranes and no mucosal ulcerations; normal hard and soft palate Neck: Trachea midline; supple, no thyromegaly or lymphadenopathy Cardiac: RRR, no murmur, +S1/S2. No JVD noted. Pulmonary: CTA bilaterally, no wheezes, rales or rhonchi, equal chest expansion Abdomen: soft, no guarding. No masses or hepatosplenomegaly, diffuse tenderness at all quadrants with worse tenderness in pelvic region MSK: ROM intact, no joint swelling noted, bilateral flank tenderness Extremities: no edema, nontender calf Skin: Normal temperature, turgor; no rash, ulcers or subcutaneous nodules Neuro: moves all extremities, no focal deficits. Psych: Appropriate mood and behavior. A&Ox3 - Assessment and Plan (1) Dysuria Current Visit: Yes Status: Acute Assessment and Plan: Patient complaining of dysuria ongoing for 6 weeks Has been treated for UTI and urinalysis upon admission shows no concern for infectious cause Likely secondary to the mass like lesion in the bladder Urinalysis shows no bacteria CT shows: Prominent diffuse urinary bladder wall thickening and anjel-vesicular stranding, which could be related to severe cystitis. Underlying malignancy cannot be excluded. Findings have progressed when compared to 11/30/2018 Urology consulted. Currently on Cefazolin but will DC. (2) AMISHA (acute kidney injury) Current Visit: Yes Status: Acute Assessment and Plan: AMISHA likely secondary to post renal due to suspected obstruction post renally Urology consulted for recommendations for the bladder mass and pt is s/p TUBT Will continue to monitor BMP Hold nephrotoxins to avoid further renal injury Continue gentle hydration Nephrology consulted. Cr trending down. Will check renal function in am. (3) Hydronephrosis Current Visit: Yes Status: Acute Assessment and Plan: Noted to have bilateral hydronephrosis on CT Likely secondary to obstruction due to bladder mass He is producing urine Creatinine 3.17 with decrease in GFR on admission. CT of the abdomen and pelvis showed mild bilateral hydronephrosis and hydroureter Urology consulted for recommendations on the bladder mass and he is s/p TURBT with stent placement. Will monitor renal function QD (4) Constipation Current Visit: Yes Status: Acute Assessment and Plan: Reports not having a normal bowel movement in the past month He denies any changes in his diet and had regular bowel movements previously He had a colonoscopy 8 years ago and elicits it was normal. Ordered senna To rule out the etiology of the constipation he may require outpatient GI follow up given new onset of constipation (5) Hypertension Current Visit: Yes Status: Acute Assessment and Plan: Hold lisinopril given AMISHA Hydralazine PRN ordered (6) Bladder mass Current Visit: Yes Status: Acute Assessment and Plan: Was following outpatient with Urology for dysuria Had a cystoscopy on 12/06/18 which showed mass like lesion in the bladder CT today shows: The urinary bladder is incompletely distended. There is moderate diffuse urinary bladder wall thickening and perivesicular stranding, which is increased from the previous study. Urology consulted and is s/p TURBT day #1 also had cystoscopy with bilateral retrograde pyelograms and JJ stent placement. (7) BPH (benign prostatic hyperplasia) Current Visit: Yes Status: Acute Assessment and Plan: Noted to have mild prostate enlargement on CT Continue home doxazosin DVT Prophylaxis: SCD - Summary of Assessment and Plan Summary of Assessment and Plan: History of present illness: Dr. Jarvis Bates Mr. Meredith is a 68 year old male with past medical history of hypertension who was asked to present to the ED by his urologist due to laboratory findings of worsening renal function. He reports 6 weeks ago he started to have pain with urination and was treated by his PCP for a UTI. He reports after the antibiotics his pain did not resolve and was subsequently referred to a urologist. His urologist did a CT of the abdomen and pelvis on 11/23/18 which showed abnormal wall thickening of the urinary bladder on the left with nodular masslike appearance with pericystic stranding and concern for malignancy. He then underwent a cystoscopy on 12/06/18 which showed large mass seen on the posterior wall toward the trigone and the mass had some papillary components as well as inflammatory appearing components. He was scheduled to have surgical intervention but today had labs drawn at his urology office which showed creatinine of 3.21 and GFR of 19. He also reported not having a normal bowel movement in the past 1 month. And when asked he reported losing 10 pounds unintentionally since August 2018. In the ED his repeat labs show creatinine of 3.17 and GFR of 20 while on 11/30 his creatinine was 0.90 and GFR was also above 60. Today he is complaining of flank pain which is transient and described as stabbing in sensation. He is also complaining of pelvic pain and abdominal pain. - Time Spent with Patient Total time spent is greater than 50% in coordination of care (as documented) at patient's floor/unit and/or counseling patient: less than 15 minutes Plan of Care Discussed with: patient Internal Medicine: Result - Labs CBC & Chem 7: 12/20/18 14:49 12/22/18 15:56 Labs: BMP 12/22/18 12/22/18 03:10 15:56 Sodium 145 144 Potassium 3.2 L 3.3 L Chloride 107 104 Carbon Dioxide 26 30 H BUN 27 H 27 H Creatinine 1.83 H 1.73 H Glucose 131 H 132 H Calcium 9.0 9.7 Consult Discharge Plan - Plan Referrals: Sammy Guan MD [Primary Care Provider] - (3) Hydronephrosis Qualifiers: Hydronephrosis type: unspecified Qualified Code(s): N13.30 - Unspecified hydronephrosis (4) Constipation Qualifiers: Constipation type: unspecified constipation type Qualified Code(s): K59.00 - Constipation, unspecified (5) Hypertension Qualifiers: Hypertension type: essential hypertension Qualified Code(s): I10 - Essential (primary) hypertension (7) BPH (benign prostatic hyperplasia) Qualifiers: Lower urinary tract symptom presence: unspecified whether lower urinary tract symptoms present Qualified Code(s): N40.0 - Benign prostatic hyperplasia without lower urinary tract symptoms
[2018-12-22] MEDS: Sennosides 8.6 MG TABLET PO SCH (20:03)
[2018-12-23 02:54] LABS: Calcium 9.7 mg/dL (8.6-10.3); Phosphorous 3.3 mg/dL (2.7-4.5); Potassium 3.7 mEq/L (3.5-5.1)
[2018-12-23 08:00] VITALS: BP 140/84
--- NOTE | 2018-12-23 09:26 | Internal Med Progress Note ---
Hospitalist Progress Note - Encounter Date of Encounter: 12/23/18 Time of Encounter: 09:16 - Exam Vitals: Temp Pulse Resp BP Pulse Ox 98.2 F 59 18 140/84 95 12/23/18 07:50 12/23/18 07:50 12/23/18 07:50 12/23/18 07:50 12/23/18 07:50 Exam: GEN: NAD CVS: RRR. S1, S2, No m/r/g RESP: CTAB ABD: Soft, NT, ND, +BS EXT: No edema. 2+ DP. No rashes NEURO: Nonfocal - Assessment and Plan (1) Dysuria Current Visit: Yes Status: Acute (2) AMISHA (acute kidney injury) Current Visit: Yes Status: Acute (3) Hydronephrosis Current Visit: Yes Status: Acute (4) Constipation Current Visit: Yes Status: Acute (5) Hypertension Current Visit: Yes Status: Acute (6) Bladder mass Current Visit: Yes Status: Acute (7) BPH (benign prostatic hyperplasia) Current Visit: Yes Status: Acute - Time Spent with Patient Total time spent is greater than 50% in coordination of care (as documented) at patient's floor/unit and/or counseling patient: Internal Medicine: Result - Labs CBC & Chem 7: 12/20/18 14:49 12/23/18 01:48 Labs: BMP 12/22/18 12/23/18 15:56 01:48 Sodium 144 142 Potassium 3.3 L 3.7 Chloride 104 111 H Carbon Dioxide 30 H 28 BUN 27 H 29 H Creatinine 1.73 H 1.49 H Glucose 132 H 130 H Calcium 9.7 9.7 Liver Function 12/23/18 Range/Units 01:48 Albumin 4.0 (3.5-5.7) g/dL Consult Discharge Plan - Plan Referrals: Sammy Guan MD [Primary Care Provider] - (3) Hydronephrosis Qualifiers: Hydronephrosis type: unspecified Qualified Code(s): N13.30 - Unspecified hydronephrosis (4) Constipation Qualifiers: Constipation type: unspecified constipation type Qualified Code(s): K59.00 - Constipation, unspecified (5) Hypertension Qualifiers: Hypertension type: essential hypertension Qualified Code(s): I10 - Essential (primary) hypertension (7) BPH (benign prostatic hyperplasia) Qualifiers: Lower urinary tract symptom presence: unspecified whether lower urinary tract symptoms present Qualified Code(s): N40.0 - Benign prostatic hyperplasia without lower urinary tract symptoms
--- NOTE | 2018-12-23 09:28 | Discharge Summary ---
- NOTES TO OUTPATIENT PROVIDER Notes to Outpatient Provider: Patient will follow up with Dr. Ahuja or Dr. Osborne to get referral to [facility] for possible radical cystectomy Date of Encounter: 12/23/18 Time of Encounter: 09:26 - Discharge Diagnosis (1) Bladder mass Priority: Primary Status: Acute (2) Dysuria Priority: Primary Status: Acute (3) AMISHA (acute kidney injury) Priority: Primary Status: Acute (4) Hydronephrosis Priority: Primary Status: Acute Qualifiers: Hydronephrosis type: unspecified Qualified Code(s): N13.30 - Unspecified hy dronephrosis (5) Constipation Priority: Primary Status: Acute Qualifiers: Constipation type: unspecified constipation type Qualified Code(s): K59.00 - Constipation, unspecified (6) BPH (benign prostatic hyperplasia) Priority: Primary Status: Acute Qualifiers: Lower urinary tract symptom presence: unspecified whether lower urinary tract symptoms present Qualified Code(s): N40.0 - Benign prostatic hyperplasia without lower urinary tract symptoms (7) Hypertension Priority: Secondary Status: Acute Qualifiers: Hypertension type: essential hypertension Qualified Code(s): I10 - Essential (primary) hypertension Hospital course: Mr. Meredith is a 68 year old male with past medical history of hypertension who was asked to present to the ED by his urologist due to laboratory findings of worsening renal function. He reported 6 weeks ago he started to have pain with urination and was treated by his PCP for a UTI. He reported after the antibiotics his pain did not resolve and was subsequently referred to a urologist. His urologist did a CT of the abdomen and pelvis on 11/23/18 which showed abnormal wall thickening of the urinary bladder on the left with nodular masslike appearance with pericystic stranding and concern for malignancy. He then underwent a cystoscopy on 12/06/18 which showed large mass seen on the posterior wall toward the trigone and the mass had some papillary components as well as inflammatory appearing components. He was scheduled to have surgical intervention but had labs drawn at his urology office which showed creatinine of 3.21 and GFR of 19. In the ED his repeat labs show creatinine of 3.17 and GFR of 20 while on 11/30 his creatinine was 0.90 and GFR was also above 60. He was admitted and put on IV fluids and seen by urology. He underwent cystoscopy with bilateral retrograde pyelogram and JJ stent placement and medium TURBT. Pathology showed invasive urothelial carcinoma, high-grade, with lamina propria and muscularis propria involvement. Kidney function improved and was improving on a daily basis. Creatinine was down to 1.49 and BUN at 29 on 12/23. I discussed pathology findings with Dr. Ahuja who recommended outpatient follow up with him on Dr. Osborne in 1 week and plans to possibly refer to [facility] for a radical cystectomy. Nephrology followed along as well. He was stable for discharge on 12/23/18. - Time Spent with Patient Total time spent providing and/or coordinating discharge services: Time spent: Greater than 30 minutes - Discharge Medications Prescriptions: New Oxybutynin [Ditropan] 5 mg PO BID 30 Days #60 tablet Tamsulosin [Flomax] 0.4 mg PO DAILY 30 Days #30 capsule Continued Doxazosin [Cardura] 4 mg PO HS Lisinopril-HCTZ 10-12.5 [Prinzide 10-12.5] 1 each PO DAILY Home Medications: Doxazosin [Cardura] 4 mg PO HS 12/20/18 [History] Lisinopril-HCTZ 10-12.5 [Prinzide 10-12.5] 1 each PO DAILY 12/20/18 [History] Oxybutynin [Ditropan] 5 mg PO BID 30 Days #60 tablet 12/23/18 [Rx] Tamsulosin [Flomax] 0.4 mg PO DAILY 30 Days #30 capsule 12/23/18 [Rx] Allergies/Adverse Reactions: Allergy/AdvReac Type Severity Reaction Status Date / Time No Known Allergies Allergy Verified 12/20/18 10:05 Date of admission: 12/21/18 06:33 Primary care physician: Sammy Guan MD Consults: 12/20/18 22:12 Consult to Urology [CONS] Routine Consulting Provider: [facility] Reason for Consult: masslike lesion in the bladder with new onset bilateral hydronephrosis Call Completed: No 12/21/18 03:31 Consult to Nephrology [CONS] Routine Consulting Provider: [facility] Reason for Consult: Acute renal failure Call Completed: No - Constitutional Vitals: Temp Pulse Resp BP Pulse Ox 98.2 F 59 18 140/84 95 12/23/18 07:50 12/23/18 07:50 12/23/18 07:50 12/23/18 07:50 12/23/18 07:50 General appearance: Present: cooperative, A&O X 3, pleasant, no acute distress, answers questions appropriately Exam: GEN: NAD CVS: RRR. S1, S2, No m/r/g RESP: CTAB ABD: Soft, NT, ND, +BS EXT: No edema. 2+ DP. No rashes NEURO: Nonfocal - Patient Status Disposition: Home, Self-Care Condition: Fair Overall status at discharge: patient is progressing back to baseline - Discharge Instructions Instructions: Transurethral Resection of Bladder Tumors (DC) Follow Up With: Sammy Guan MD [Primary Care Provider] - Nicola Ahuja MD [Partnered Physician] - (1 week) - Diet and Activity Activity: increase activity as tolerated Diet: regular diet
--- NOTE | 2018-12-23 10:06 | Urology Progress Note ---
<Marleny Goldsmith N - Last Filed: 12/23/18 10:13> Date of Encounter: 12/23/18 Time of Encounter: 09:00 - Assessment and Plan (1) AMISHA (acute kidney injury) Status: Acute (2) Bladder mass Status: Acute Assessment and plan: Patient is a 68-year-old male who presents 2 days postoperatively from medium TURBT 3-4 cm size, cystoscopy with bilateral retrograde pyelograms and JJ stent placement. Pathology pending. Patient is recovering well postoperatively. Vital signs are stable and afebrile. Renal function improving. Discussed expectations with indwelling ureteral stents. Patient will be scheduled for outpatient follow-up with Dr. Ahuja. (3) Hydronephrosis Status: Acute Qualifiers: Hydronephrosis type: unspecified Qualified Code(s): N13.30 - Unspecified hydronephrosis Progress Note Subjective: no new complaints, feels better Narrative: POD #2. Patient seen and examined sitting upright in bed eating breakfast in no apparent distress. Patient reports pain is well-controlled, and he denies any fever, chills, flank pain, chest pain, dyspnea. Patient reports he is voiding without difficulty. Objective Initial Vital Signs Temp Pulse Resp BP Pulse Ox 98.4 F 80 14 149/80 97 12/20/18 14:05 12/20/18 14:05 12/20/18 14:05 12/20/18 14:05 12/20/18 14:05 - General physical appearance Present: well developed, no distress, no pain - Respiratory Present: normal expansion, normal respiratory effort - Abdomen Present: soft, non tender - Genitourinary Urine Appearance: Present: Clear (Transparent, pink lemonade urine and bedside urinal) - Integumentary Present: no rash, no abnormal pigmentation - Musculoskeletal Present: normal posture - Psychiatric Present: oriented to time, oriented to person, oriented to place, speech is normal, memory intact - Labs 12/20/18 14:49 12/23/18 01:48 Diabetes panel 12/22/18 12/23/18 Range/Units 15:56 01:48 Sodium 144 142 (136-145) mEq/L Potassium 3.3 L 3.7 (3.5-5.1) mEq/L Chloride 104 111 H (98-107) mEq/L Carbon Dioxide 30 H 28 (23-29) mEq/L BUN 27 H 29 H (8-23) mg/dL Creatinine 1.73 H 1.49 H (0.70-1.30) mg/dL Glucose 132 H 130 H (70-105) mg/dL Calcium 9.7 9.7 (8.6-10.3) mg/dL Albumin 4.0 (3.5-5.7) g/dL Calcium panel 12/22/18 12/23/18 Range/Units 15:56 01:48 Calcium 9.7 9.7 (8.6-10.3) mg/dL Phosphorus 3.3 (2.7-4.5) mg/dL Albumin 4.0 (3.5-5.7) g/dL Pituitary panel 12/22/18 12/23/18 Range/Units 15:56 01:48 Sodium 144 142 (136-145) mEq/L Potassium 3.3 L 3.7 (3.5-5.1) mEq/L Chloride 104 111 H (98-107) mEq/L Carbon Dioxide 30 H 28 (23-29) mEq/L BUN 27 H 29 H (8-23) mg/dL Creatinine 1.73 H 1.49 H (0.70-1.30) mg/dL Glucose 132 H 130 H (70-105) mg/dL Calcium 9.7 9.7 (8.6-10.3) mg/dL Adrenal panel 12/22/18 12/23/18 Range/Units 15:56 01:48 Sodium 144 142 (136-145) mEq/L Potassium 3.3 L 3.7 (3.5-5.1) mEq/L Chloride 104 111 H (98-107) mEq/L Carbon Dioxide 30 H 28 (23-29) mEq/L BUN 27 H 29 H (8-23) mg/dL Creatinine 1.73 H 1.49 H (0.70-1.30) mg/dL Glucose 132 H 130 H (70-105) mg/dL Calcium 9.7 9.7 (8.6-10.3) mg/dL Albumin 4.0 (3.5-5.7) g/dL Consult Discharge Plan - Plan Instructions: Transurethral Resection of Bladder Tumors (DC) Referrals: Sammy Guan MD [Primary Care Provider] - Nicola Ahuja MD [Partnered Physician] - (1 week) Prescriptions: Oxybutynin [Ditropan] 5 mg PO BID 30 Days #60 tablet Tamsulosin [Flomax] 0.4 mg PO DAILY 30 Days #30 capsule <Nicola Ahuja - Last Filed: 12/24/18 07:48> Date of Encounter: 12/24/18 - Assessment and Plan (1) Bladder mass Status: Acute Assessment and plan: Agree with physician virtual office assistant assessment and plan. We will discuss pathology as outpatient. Objective Initial Vital Signs Temp Pulse Resp BP Pulse Ox 98.4 F 80 14 149/80 97 12/20/18 14:05 12/20/18 14:05 12/20/18 14:05 12/20/18 14:05 12/20/18 14:05 - Labs 12/20/18 14:49 12/23/18 01:48
== END 2018-12-23 12:43 | disposition home or self-care (01) | DRG 654 ==
LOC: EMEROOARM 13:53 → 3ANU 13:53
PROVIDERS: ADMIT Pediatrics; ATTEND Pediatrics

== ENCOUNTER 2019-01-03 09:17 | Inpatient (IN) ==
--- NOTE | 2019-01-03 09:44 | Emergency Department Note ---
Disposition Clinical Impression: Hydronephrosis, Hypokalemia ARF (acute renal failure) Qualifiers: Acute renal failure type: unspecified Qualified Code(s): N17.9 - Acute kidney failure, unspecified Disposition: Admitted As Inpatient Condition: Serious Time of Disposition: 09:48 General Adult HPI - General Chief complaint: ED Recheck/Abnormal Lab/Rx Stated complaint: Kidney failure Time Seen by Provider: 01/03/19 09:23 Source: patient Limitations: no limitations Nursing Notes Reviewed: Yes Vital Signs Reviewed: Yes - History of Present Illness HPI Narrative: 68-year-old male presents emergency Department with concerns of abnormal laboratory results. Patient states he was recently diagnosed with bladder cancer that was obstructing the right ureter. Dr. Ahuja, urology, resected the bladder last week, a stent was placed in the right ureter to facilitate drainage. He received a call today regarding labs overtaking yesterday, that showed significant elevation of his creatinine. Patient has tenderness to the right flank and right mid back. Denies fever, chills, nausea, vomiting, diarrhea, chest pain, shortness breath, palpitations, rash, dysuria, hematuria, hematochezia, melena. Pain Scale: 5 - Related Data Home Medications Medication Instructions Recorded Confirmed Doxazosin [Cardura] 4 mg PO HS 12/20/18 01/02/19 Lisinopril-HCTZ 10-12.5 [Prinzide 1 each PO DAILY 12/20/18 01/02/19 10-12.5] Previous Rx's Medication Instructions Recorded Oxybutynin [Ditropan] 5 mg PO BID 30 Days #60 tablet 12/23/18 Tamsulosin [Flomax] 0.4 mg PO DAILY 30 Days #30 capsule 12/23/18 Oxycodone HCl/Acetaminophen 1 each PO Q8H PRN 30 Days #90 01/02/19 [Percocet 5-325 mg Tablet] tablet Allergies Allergy/AdvReac Type Severity Reaction Status Date / Time No Known Allergies Allergy Verified 01/02/19 10:47 All systems ED: reviewed and negative except as stated. Review of Systems: As Per HPI Past Medical History - Past Medical History Attestation: Yes The following information was validated with the patient. Source: patient Medical history: Reports: cancer, hypertension Surgical history: Reports: appendectomy Psychiatric history: Reports: no psych history - Social History Smoking Status: Never smoker Smokeless Tobacco Status: No Alcohol use: Reports: rarely Drug use: Reports: none Physical Exam General: Alert and in no acute distress Skin: Warm, dry, intact Head: Normocephalic and atraumatic Neck: Supple, trachea midline and no tenderness Cardiovascular: RRR, no murmur, normal perfusion Respiratory: CTAB, no wheezing, cough, or respiratory distress Musculoskeletal: Normal strength, no tenderness, swelling or deformity. Right- sided CVA tenderness. GI: Soft, mild tenderness to palpation of the right upper quadrant, right lower quadrant. nondistended. Bowel sounds present Neuro: A&O to person, place, time and situation. No focal deficits noted on exam Psychiatric: cooperative and appropriate mood and affect. - General Limitations: no limitations General appearance: alert, in no apparent distress Course - Reevaluation(s) Reevaluation #1: I spoke with Dr. Ahuja regarding the patient's case and presentation who recommended laboratory evaluation, CT of the abdomen and pelvis without contrast and likely placement of urostomy tubes if there is evidence of hydronephrosis as well as likely admission to the hospital. Time: 09:46 Vital Signs Temperature 98.1 F 01/03/19 09:22 Pulse Rate 81 01/03/19 09:22 Respiratory Rate 18 01/03/19 09:22 Blood Pressure 142/63 01/03/19 09:22 O2 Sat by Pulse Oximetry 99 01/03/19 09:22 Temperature 98.1 F 01/03/19 09:22 Pulse Rate 81 01/03/19 09:22 Respiratory Rate 18 01/03/19 09:22 Blood Pressure 142/63 01/03/19 09:22 O2 Sat by Pulse Oximetry 99 01/03/19 09:22 Oxygen Delivery Oxygen Delivery Room Air Medical Decision Making - Medical Records Medical records reviewed: Yes I reviewed the patient's medical records. - Lab Data Lab results reviewed: Yes I reviewed the patient's lab results. - Radiology Data Radiology results reviewed: Yes I reviewed the patient's radiology results. - EKG Data EKG #1 EKG attestation: Yes I reviewed and interpreted this EKG. EKG results narrative: Normal sinus rhythm with rate of 70 without evidence of STEMI or other dysrhythmia. QTC 461, QRS 106
[2019-01-03 10:10] LABS: Basophils % 0.1 %; Eosinophils # 0.1 K/mcL (0.0-0.6); Eosinophils % 0.5 %; Hematocrit 30.4 % (37.5-50.1); Hemoglobin 11.1 g/dL (12.9-16.9); Immature Granulocytes % 0.4 % (0-4); Lymphocytes # 0.9 K/mcL (0.6-4.6); Mean Corpuscular HGB Conc 36.5 g/dL (31.6-35.5); Mean Corpuscular Hemoglobin 33.1 pg (28.0-33.3); Mean Platelet Volume 12.2 fL (9.4-12.4); Monocytes # 0.8 K/mcL (0.0-1.3); Neutrophils # 9.3 K/mcL (1.6-8.9); Platelet Count 125 K/mcL (140-400); Red Blood Count 3.35 M/mcL (4.19-5.50); Red Cell Distribution Width 11.4 % (11.5-14.5)
[2019-01-03 10:11] LABS: Mean Corpuscular Volume 90.7 fL (83.0-100.0)
[2019-01-03 10:17] LABS: INR 1.1; Prothrombin Time 12.6 Seconds (9.4-12.1)
[2019-01-03 10:20] LABS: Activated Partial Thrombo Time 27.8 Seconds (26.0-36.0)
[2019-01-03 10:34] LABS: Calcium 8.2 mg/dL (8.6-10.3); Potassium 2.6 mEq/L (3.5-5.1)
[2019-01-03] MEDS ORDERED: Naloxone 0.4 MG/ML INJ IVP PRN (12:33)
[2019-01-03] MEDS ORDERED: 0.9 % Sodium Chloride 500 ML ONE ×2 (13:12→13:43)
[2019-01-03 13:30] LABS: Magnesium 2.1 mg/dL (1.6-2.6)
[2019-01-03] MEDS ORDERED: *HR* FentaNYL (PF) 100 MCG/2 ML VIAL IVP ONE ×2 (13:38→13:59)
[2019-01-03] MEDS ORDERED: Ampicillin/Sulbactam 1,500 MG in 0.9 % Sodium Chloride Mini Bag 100 ML IVPB ONE (13:48)
[2019-01-03] MEDS ORDERED: *HR* FentaNYL (PF) 100 MCG/2 ML VIAL ONE (14:00)
--- NOTE | 2019-01-03 14:02 | Internal Med History&Physical ---
Date of Encounter: 01/03/19 Time of Encounter: 14:00 Internal Medicine - H&P: HPI Chief complaint: Sent to the ER for abnormal labs- elevated creatinine History of present illness: Mr. Meredith is a 68 year old male with pmh of bladder cancer, bilateral hydronephrosis due to mass s/p recent stent placement, hypertension presenting with complaints of being sent here for elevated creatinine and low potassium on labs. He recently had AMISHA due to hydronephrosis and had stents placed. He was discharged on 12/23. He had a routine follow up BMP showing a creatinine of 8 and a potassium of 2.6. He says since he was discharged, he has been having pressure like abdominal pain and decreased urination. He denies any other acute complaints IR was consulted from the ER and he had bilateral nephrostomy tubes placed. His tubes are draining clear urine, and he has drained about a liter of fluid since tubes were placed. He also says his abdominal pain has improved. He is being admitted Past Med Surg [facility] HX - Past Medical History Medical history: cancer, hypertension Additional medical history: bladder cancer Psychiatric history: no psych history - Past Surgical History Surgical History: appendectomy Additional surgical history: stents from kidney to bladder - Social History Smoking Status: Never smoker Smokeless Tobacco Status: No Alcohol use: rarely Drug use: none - Family History Mother Hx Family Cardiac Disorders: Yes (hypertension ) - Additional Family History Additional family history: Family history reviewed and non contributory Internal Medicine - H&P: Meds Doxazosin [Cardura] 4 mg PO HS 12/20/18 [History] Lisinopril-HCTZ 10-12.5 [Prinzide 10-12.5] 1 each PO DAILY 12/20/18 [History] Oxybutynin [Ditropan] 5 mg PO BID 30 Days #60 tablet 12/23/18 [Rx] Tamsulosin [Flomax] 0.4 mg PO DAILY 30 Days #30 capsule 12/23/18 [Rx] Acetaminophen/Diphenhydramine [Eql Acetaminophen Pm Gelcap] 1 each PO HS 01/03/19 [History] Allergy/AdvReac Type Severity Reaction Status Date / Time No Known Allergies Allergy Verified 01/02/19 10:47 All Systems PM: A 10-system review of systems was performed and is negative for pertinent findings except as documented above in the HPI. - Constitutional Constitutional: no chills, no fever(s), no night sweats - EENT Eyes: no change in vision, no discharge, no pain, no photophobia Ears: no ear discharge, no ear pain, no tinnitus Nose, mouth and throat: no dysphagia, no nasal discharge, no neck pain, no sore throat - Cardiovascular Cardiovascular ROS IM: no chest pain, no diaphoresis, no dyspnea, no lightheadedness, no palpitations, no syncope - Respiratory Respiratory: no cough, no dyspnea, no wheezing, no excessive phlegm production - Gastrointestinal Gastrointestinal: abdominal pain, no diarrhea, no hematemesis, no hematochezia, no melena, no nausea, no vomiting - Musculoskeletal Musculoskeletal ROS IM: no numbness, no tingling - Integumentary Integumentary IM: no rash, no unusual bruising - Neurological Neurological ROS: no confusion, no convulsions, no focal weakness, no numbness, no tingling, no tremor(s) - Hematologic/Lymphatic Hematologic/Lymphatic: no easy bruising - Constitutional Vitals: Temp Pulse Resp BP Pulse Ox 98.1 F 56 10 164/87 100 01/03/19 09:22 01/03/19 13:54 01/03/19 13:54 01/03/19 13:54 01/03/19 13:54 Exam: NAD - Head Head exam: Present: atraumatic, normocephalic - Eye Eye exam: Present: PERRL, conjuntiva pink, sclera anicteric Pupils: Present: PERRL - Neck Neck exam general surgery: Present: supple, trachea midline. Absent: lymphadenopathy - Respiratory Respiratory exam: Present: CTAB. Absent: accessory muscle use, rales, rhonchi, wheezes - Cardiovascular Cardiovascular exam: Present: RRR, +S1, +S2. Absent: diastolic murmur, gallop, rubs, systolic murmur - GI/Abdominal GI/Abdominal exam: Present: normal bowel sounds, soft, no peritoneal signs. Absent: distended, tenderness Additional comments: mild tenderness to palpation - Extremities Exam Extremities exam: Present: warm, radial pulses palpable and symmetrical. Absent: calf tenderness, cyanotic, pedal edema - Neurological Exam Neurological exam: Present: CN II-XII intact, oriented X3, no focal deficits. Absent: pronater drift, facial droop, speech deficit - Skin Skin exam: Present: dry, intact Internal Med - H&P Results - Labs CBC & Chem 7: 01/03/19 10:01 01/03/19 10:01 Labs: Short CBC 01/03/19 Range/Units 10:01 WBC 11.1 (4.3-11.1) K/mcL Hgb 11.1 L (12.9-16.9) g/dL Hct 30.4 L (37.5-50.1) % Plt Count 125 L (140-400) K/mcL Neutrophils # 9.3 H (1.6-8.9) K/mcL BMP 01/03/19 10:01 Sodium 134 L Potassium 2.6 L Chloride 98 Carbon Dioxide 22 L BUN 51 H Creatinine 8.02 H Glucose 124 H Calcium 8.2 L - Impressions ITS Impressions Abdomen/Pelvis CT 01/03/19 09:49 IMPRESSION: 1. Persistent severe circumferential urinary bladder wall thickening with adjacent pericystic stranding. This likely represents a combination of the patient's known urinary bladder malignancy and post treatment cystitis. 2. Mild amount of free fluid within the pelvis and abdomen, as detailed above, most likely reflects mild postinflammatory change, without fluid collection or abscess. 3. Interval placement of bilateral ureteral stents, in proper position, with persistent moderate bilateral hydronephrosis, likely secondary to the patient's urinary bladder changes. 4. New small bilateral pleural effusions with mild bibasilar atelectasis. D/ 01/03/2019 11:05:39 Simone Zuñiga MD / Yessenia Barry Interpreting Provider: Simone Zuñiga MD - Assessment and Plan (1) ARF (acute renal failure) Current Visit: Yes Status: Acute Assessment and plan: Pt comes in with worsening creatinine s/p recent stent Likely secondary to post renal obstruction with bladder mass s/p nephrostomy tube placement by IR today to relieve obstruction. Draining clear urine Continue IV fluid hydration. renal and urology recs appreciated Qualifiers: Acute renal failure type: unspecified Qualified Code(s): N17.9 - Acute kidney failure, unspecified (2) Hydronephrosis Current Visit: Yes Status: Acute Assessment and plan: Likely 2/2 bladder mass. S/p recent stent placement IR to place nephrostomy tubes today Qualifiers: Qualified Code(s): N13.2 - Hydronephrosis with renal and ureteral calculous obstruction (3) Hypokalemia Current Visit: Yes Status: Acute Assessment and plan: Replace potassium (4) BPH (benign prostatic hyperplasia) Current Visit: Yes Status: Acute Assessment and plan: Continue home meds Qualifiers: Lower urinary tract symptom presence: unspecified whether lower urinary tract symptoms present Qualified Code(s): N40.0 - Benign prostatic hyperplasia without lower urinary tract symptoms (5) Bladder mass Current Visit: Yes Status: Acute Assessment and plan: Urology on board (6) Hypertension Current Visit: Yes Status: Acute Assessment and plan: Hold lisinopril HCTZ 2/2 to AMISHA Qualifiers: Hypertension type: essential hypertension Qualified Code(s): I10 - Essential (primary) hypertension (7) DVT prophylaxis Current Visit: Yes Status: Acute Assessment and plan: heparin sc - Time Spent With Patient Total time spent is greater than 50% in coordination of care (as documented) at patient's floor/unit and/or counseling patient:
[2019-01-03] MEDS ORDERED: Isovue-300 50 ML VIAL IVP ONE (14:16)
[2019-01-03] MEDS: Potassium Chloride Elixir 20 MEQ/15 ML UDC PO SCH ×2 (14:46→18:53)
[2019-01-03] MEDS ORDERED: Acetaminophen 325 MG TABLET PO PRN (15:25)
--- NOTE | 2019-01-03 15:36 | IR Procedure Note ---
Date of procedure: 01/03/19 Consent Obtained: Written consent Timeout: Correct patient and procedure verified, Correct site verified, Time out performed, Skin prep completed Local anesthetic: Lidocaine 1% Indications: bilateral hydronephrosis Procedure Performed: bilateral nephrostomy Was there an assistant professor of philosophy present: No Site/Technique: both kidneys Results/Findings: 10 F tubes bilaterally, clear urine Estimated blood loss (cc): 0 Complications: None; Tolerated procedure well Post Procedure Treatment Plan: drain to bags Specimen: NA
[2019-01-03] MEDS ORDERED: *HR* OxyCODONE/APAP 5/325 TABLET PO PRN (16:15)
[2019-01-03] MEDS: 0.9 % Sodium Chloride 1,000 ML IVC SCH ×2 (18:54→21:18)
[2019-01-03] MEDS ORDERED: ACETAMINOPHEN PO SCH (21:00)
[2019-01-03] MEDS ORDERED: DIPHENHYDRAMINE PO SCH (21:00)
[2019-01-03] MEDS ORDERED: Potassium Chloride Elixir 20 MEQ/15 ML UDC PO ONE (21:12)
[2019-01-04] MEDS: 0.9 % Sodium Chloride 1,000 ML IVC SCH ×3 (00:21→17:22)
[2019-01-04 06:05] LABS: Basophils % 0.2 %; Eosinophils # 0.1 K/mcL (0.0-0.6); Eosinophils % 1.2 %; Hematocrit 30.9 % (37.5-50.1); Hemoglobin 11.1 g/dL (12.9-16.9); Immature Granulocytes % 0.3 % (0-4); Lymphocytes % 16.9 %; Mean Corpuscular HGB Conc 35.9 g/dL (31.6-35.5); Mean Platelet Volume 12.2 fL (9.4-12.4); Monocytes # 0.6 K/mcL (0.0-1.3); Monocytes % 9.6 %; Neutrophils # 4.3 K/mcL (1.6-8.9); Platelet Count 127 K/mcL (140-400); Red Blood Count 3.36 M/mcL (4.19-5.50); Red Cell Distribution Width 11.7 % (11.5-14.5); Segmented Neutrophils % 71.8 %
[2019-01-04 06:34] LABS: Calcium 8.8 mg/dL (8.6-10.3); Magnesium 1.9 mg/dL (1.6-2.6); Phosphorous 3.9 mg/dL (2.7-4.5); Potassium 3.2 mEq/L (3.5-5.1)
--- NOTE | 2019-01-04 08:09 | Urology Progress Note ---
Date of Encounter: 01/04/19 Time of Encounter: 08:07 - Assessment and Plan (1) Bladder cancer Current Visit: Yes Status: Acute Assessment and plan: Patient has been diagnosed with muscle invasive bladder cancer. He was seen by medical oncology yesterday to consider neoadjuvant chemotherapy. He has a upcoming appointment at [facility] within 2 weeks. He will most likely require neoadjuvant chemotherapy followed by radical cystectomy with this plan has yet to be solidified. I believe that his significant bladder dysfunction caused failure of the ureteral stents. He may have high pressure voiding with reflux of urine versus occlusion of the stents because of bladder wall thickening. Regardless, the nephrostomy tubes were the necessary intervention because of his renal failure. His creatinine has already improved from 8-4 today. I suspect it will improve even further tomorrow. No need for transfer to [facility]. Likely will be able to be discharged with bilateral nephrostomy tubes and keep outpatient follow-up appointment with [facility]. Qualifiers: Bladder location: unspecified site Qualified Code(s): C67.9 - Malignant neoplasm of bladder, unspecified Progress Note Subjective: feels better Narrative: bilateral nephrostomy tubes placed yesterday. Objective Initial Vital Signs Temp Pulse Resp BP Pulse Ox 98.1 F 81 18 142/63 99 01/03/19 09:22 01/03/19 09:22 01/03/19 09:22 01/03/19 09:22 01/03/19 09:22 - General physical appearance Present: no distress - Additional Exam bilateral nephrosomy tubes with clear urine. - Labs 01/04/19 05:24 01/04/19 05:24 Diabetes panel 01/03/19 01/03/19 01/04/19 Range/Units 10:01 20:09 05:24 Sodium 134 L 144 D (136-145) mEq/L Potassium 2.6 L 2.9 L 3.2 L (3.5-5.1) mEq/L Chloride 98 107 (98-107) mEq/L Carbon Dioxide 22 L 25 (23-29) mEq/L BUN 51 H 46 H (8-23) mg/dL Creatinine 8.02 H 4.49 H (0.70-1.30) mg/dL Glucose 124 H 134 H (70-105) mg/dL Calcium 8.2 L 8.8 (8.6-10.3) mg/dL Calcium panel 01/03/19 01/03/19 01/04/19 Range/Units 10:01 10:01 05:24 Calcium 8.2 L 8.8 (8.6-10.3) mg/dL Phosphorus 6.0 H 3.9 (2.7-4.5) mg/dL Pituitary panel 01/03/19 01/03/19 01/04/19 Range/Units 10:01 20:09 05:24 Sodium 134 L 144 D (136-145) mEq/L Potassium 2.6 L 2.9 L 3.2 L (3.5-5.1) mEq/L Chloride 98 107 (98-107) mEq/L Carbon Dioxide 22 L 25 (23-29) mEq/L BUN 51 H 46 H (8-23) mg/dL Creatinine 8.02 H 4.49 H (0.70-1.30) mg/dL Glucose 124 H 134 H (70-105) mg/dL Calcium 8.2 L 8.8 (8.6-10.3) mg/dL Adrenal panel 01/03/19 01/03/19 01/04/19 Range/Units 10:01 20:09 05:24 Sodium 134 L 144 D (136-145) mEq/L Potassium 2.6 L 2.9 L 3.2 L (3.5-5.1) mEq/L Chloride 98 107 (98-107) mEq/L Carbon Dioxide 22 L 25 (23-29) mEq/L BUN 51 H 46 H (8-23) mg/dL Creatinine 8.02 H 4.49 H (0.70-1.30) mg/dL Glucose 124 H 134 H (70-105) mg/dL Calcium 8.2 L 8.8 (8.6-10.3) mg/dL Consult Discharge Plan - Plan Referrals: Sammy Guan MD [Primary Care Provider] -
[2019-01-04] MEDS ORDERED: Acetaminophen 325 MG TABLET PO PRN (09:02)
--- NOTE | 2019-01-04 11:34 | Internal Med Progress Note ---
Hospitalist Progress Note - Encounter Date of Encounter: 01/04/19 Time of Encounter: 09:00 - Subjective Interval History: She was seen and examined at bedside. Reports that his abdominal pressure has improved since the procedure. Reports that he has an appointment on January 13 have further imaging studies performed for his ladder cancer and has an appointment on January 17 with [facility] for further evaluation of his bladder cancer. He was seen by medical oncology yesterday to consider neoadjuvant chemotherapy. - Exam Vitals: Temp Pulse Resp BP Pulse Ox 98.8 F 80 18 124/73 95 01/04/19 11:24 01/04/19 11:24 01/04/19 11:24 01/04/19 11:01/04/19 11:24 Exam: General: Patient is alert, oriented, no acute distress, Head: atraumatic, normocephalic, Eye: normal appearance,no scleral icterus, no conjunctival injection Chest: normal inspection, symmetric chest rise Respiratory: Good respiratory effort. Bilateral breath sounds are clear without wheezing, crackles, or rhonchi. Cardiovascular: Regular rate and rhythm. s1 and s2 No clicks, rubs, gallops, or murmors. Abdomen: Bowel sounds present normoactive x-4 quadrants. Abdomen is soft, nondistended. no Epigastric tenderness. No guarding or rebound. No organomegaly noted, has bilateral nephrostomy tubes draining yellow urine. musculoskeletal: Spontaneously moving all extremities. no edema, no calf tenderness Skin: warm, dry, intact. Neuro: Alert and oriented x4. no focal deficit Psych: Patient's affect is normal - Assessment and Plan (1) ARF (acute renal failure) Current Visit: Yes Status: Acute Assessment and Plan: Pt comes in with worsening creatinine s/p recent stent baseline creatinine was 1.49 on 12/23/18 trended up to 8 on 01/03 however it has trended down to 4.49 on 01/04 Likely secondary to post renal obstruction with bladder mass s/p nephrostomy tube placement by IR on 01/03 Continue IV fluid hydration. nephrology and urology recs appreciated strict i/O continue with IV hydration (2) Bladder cancer Current Visit: Yes Status: Acute Assessment and Plan: cT2 N0 high grade, invasive urothelial carcinoma. Muscularis propria present and involved in specimen. s/p TURBT, cystoscopy w/ b/l retrograde pyelograms, and b/l ureteral stent placement on 12/21/18 He was seen by medical oncology ( Dr. Cerda) yesterday to consider neoadjuvant chemotherapy. urology on board. "He will most likely require neoadjuvant chemotherapy followed by radical cystectomy with this plan has yet to be solidified. " has appointment at [facility] for further imaging and consultation on january 17 further imaging to complete staging with CT C/A/P w/contrast and a bone scan ordered by oncology for january 13 (3) Hydronephrosis Current Visit: Yes Status: Acute Assessment and Plan: Likely 2/2 bladder mass. S/p recent stent placement s/p IR guided nephrostomy tube placement on 01/03 nephrology on board (4) Hypertension Current Visit: Yes Status: Acute Assessment and Plan: Hold lisinopril HCTZ 2/2 to AMISHA (5) BPH (benign prostatic hyperplasia) Current Visit: Yes Status: Acute Assessment and Plan: Continue home meds (6) Hypokalemia Current Visit: Yes Status: Acute Assessment and Plan: Replace potassium follow BMP in AM (7) DVT prophylaxis Current Visit: Yes Status: Acute Assessment and Plan: heparin sc - Time Spent with Patient Total time spent is greater than 50% in coordination of care (as documented) at patient's floor/unit and/or counseling patient: 25 - 35 minutes Plan of Care Discussed with: patient Internal Medicine: Result - Labs CBC & Chem 7: 01/04/19 05:24 01/04/19 05:24 Labs: Short CBC 01/04/19 Range/Units 05:24 WBC 6.0 (4.3-11.1) K/mcL Hgb 11.1 L (12.9-16.9) g/dL Hct 30.9 L (37.5-50.1) % Plt Count 127 L (140-400) K/mcL Neutrophils # 4.3 (1.6-8.9) K/mcL BMP 01/03/19 01/04/19 20:09 05:24 Sodium 144 D Potassium 2.9 L 3.2 L Chloride 107 Carbon Dioxide 25 BUN 46 H Creatinine 4.49 H Glucose 134 H Calcium 8.8 - ABG Interpretation ABG results: PT/INR, D-dimer PT 12.6 Seconds (9.4-12.1) H 01/03/19 10:01 - Impressions Impressions Abdomen/Pelvis CT 01/03/19 09:49 IMPRESSION: 1. Persistent severe circumferential urinary bladder wall thickening with adjacent pericystic stranding. This likely represents a combination of the patient's known urinary bladder malignancy and post treatment cystitis. 2. Mild amount of free fluid within the abdomen and pelvis, as detailed above, most likely reflects mild postinflammatory change, without fluid collection or abscess. 3. Interval placement of bilateral ureteral stents, in proper position, with persistent moderate bilateral hydronephrosis, likely secondary to the patient's urinary bladder changes. 4. New small bilateral pleural effusions with mild bibasilar atelectasis. D/ / 01/03/2019 11:05:39 Simone Zuñiga MD / Yessenia Barry Interpreting Provider: Simone Zuñiga MD Consult Discharge Plan - Plan Referrals: Sammy Guan MD [Primary Care Provider] - (1) ARF (acute renal failure) Qualifiers: Acute renal failure type: unspecified Qualified Code(s): N17.9 - Acute kidney failure, unspecified (2) Bladder cancer Qualifiers: Bladder location: unspecified site Qualified Code(s): C67.9 - Malignant neoplasm of bladder, unspecified (3) Hydronephrosis Qualifiers: Qualified Code(s): N13.2 - Hydronephrosis with renal and ureteral calculous obstruction (4) Hypertension Qualifiers: Hypertension type: essential hypertension Qualified Code(s): I10 - Essential (primary) hypertension (5) BPH (benign prostatic hyperplasia) Qualifiers: Lower urinary tract symptom presence: unspecified whether lower urinary tract symptoms present Qualified Code(s): N40.0 - Benign prostatic hyperplasia without lower urinary tract symptoms
--- NOTE | 2019-01-04 11:41 | Nephrology Consult Note ---
Date of Encounter: 01/04/19 Time of Encounter: 11:41 Assessment and Plan (1) ARF (acute renal failure) Current Visit: Yes Status: Acute Patient with AMISHA secondary to obstruction. With placement of bilateral nephrostomy tubes and relief of obstruction the renal function is improving and is expected to continue to improve. Will sign off. Call if any further questions or concerns. Qualifiers: Acute renal failure type: unspecified Qualified Code(s): N17.9 - Acute kidney failure, unspecified (2) Bladder cancer Current Visit: Yes Status: Acute Qualifiers: Bladder location: unspecified site Qualified Code(s): C67.9 - Malignant neoplasm of bladder, unspecified History of Present Illness - Reason for Consult Consult date: 01/04/19 Acute Kidney Injury - Chief Complaint amisha - History of Present Illness Mr. Meredith is a 68 yo man with a history of bladder cancer who presents with AMISHA and found to have hydronephrosis. [facility] was consulted for AMISHA. Urology evaluated and at the time of evaluation the patient has nephrostomy bags. He has no complaint. Past Med Surg Social Fam HX - Past Medical History Medical history: cancer, hypertension Additional medical history: bladder cancer, BPH Psychiatric history: no psych history - Past Surgical History Surgical History: appendectomy Additional surgical history: stents from kidney to bladder - Social History Smoking Status: Never smoker Smokeless Tobacco Status: No Alcohol use: rarely Drug use: none - Family History Mother Hx Family Cardiac Disorders: Yes (hypertension ) Medications and Allergies Doxazosin [Cardura] 4 mg PO HS 12/20/18 [History] Lisinopril-HCTZ 10-12.5 [Prinzide 10-12.5] 1 each PO DAILY 12/20/18 [History] Oxybutynin [Ditropan] 5 mg PO BID 30 Days #60 tablet 12/23/18 [Rx] Tamsulosin [Flomax] 0.4 mg PO DAILY 30 Days #30 capsule 12/23/18 [Rx] Acetaminophen/Diphenhydramine [Eql Acetaminophen Pm Gelcap] 1 each PO HS 01/03/19 [History] Allergy/AdvReac Type Severity Reaction Status Date / Time No Known Allergies Allergy Verified 01/02/19 10:47 Review of Systems All Systems: reviewed and no additional remarkable complaints except as stated (as documented in the HPI.) Exam - Vital Signs Vital signs: Initial Vital Signs Temp Pulse Resp BP Pulse Ox 98.1 F 81 18 142/63 99 01/03/19 09:22 01/03/19 09:22 01/03/19 09:22 01/03/19 09:22 01/03/19 09:22 Vital Signs - Last 8 Hours Temp Pulse Resp BP Pulse Ox 01/04/19 11:24 98.8 F 80 18 124/73 95 01/04/19 07:06 98.0 F 76 18 129/71 95 01/04/19 04:21 98.7 F 72 17 137/74 95 Intake and Output 01/03/19 01/04/19 01/04/19 23:59 07:59 15:59 Intake Total 400 / 500 300 / 1660 1360 / 1660 Output Total 5750 / 5750 2300 / 4550 2250 / 4550 Balance -5350 / -5250 -2000 / -2890 -890 / -2890 Intake: IV Fluids 100 / 200 1000 / 1000 0.9 % Sodium Chloride 1,000 ML 1000 / 1000 @ 125 mls/hr IVC .Q8H [facility] Rx#: [id number] Potassium Chloride 10 mEq/100mL 100 / 100 10 meq In 100 ml @ 100 mls/hr IVPB Q1H [facility] Rx#:[id number] Oral 300 / 300 300 / 660 360 / 660 Output: Left Nephrostomy 1600 / 1600 1275 / 2225 950 / 2225 Right Nephrostomy 1400 / 1400 1025 / 1825 800 / 1825 Wound Drainage 2750 / 2750 500 / 500 Left Neph Tube 1500 / 1500 500 / 500 Right Neph Tube 1250 / 1250 Other: Meal Dinner Breakfast Percent of Meal Consumed 100% 100% Weight 88.6 kg Blood Glucose* 180 Patient Weight 01/04/19 23:59 Weight 88.6 kg - General Appearance General appearance: well-developed, well-nourished EENT: ATNC Neck: supple Respiratory: clear Cardiology: no edema, regular rate Gastrointestinal: no tenderness Integumentary: warm and dry Neurologic: alert and oriented x3 Musculoskeletal: no cyanosis Psychiatric: mood/affect appropriate Results - Lab Results 01/05/19 06:10 01/05/19 06:10 Most recent lab results 01/04/19 05:24 Calcium 8.8 Phosphorus 3.9 Magnesium 1.9 Consult Discharge Plan - Plan Referrals: Sammy Guan MD [Primary Care Provider] -
[2019-01-04] MEDS: *HR* Heparin 5,000 UNIT/ML VIAL SQ SCH ×2 (15:08→20:50)
[2019-01-05] MEDS: *HR* OxyCODONE/APAP 5/325 TABLET PO PRN ×2 (00:18→07:51)
[2019-01-05] MEDS: 0.9 % Sodium Chloride 1,000 ML IVC SCH (01:15)
[2019-01-05] MEDS: *HR* Heparin 5,000 UNIT/ML VIAL SQ SCH (06:17)
[2019-01-05 06:27] LABS: Hematocrit 31.7 % (37.5-50.1); Hemoglobin 11.2 g/dL (12.9-16.9); Mean Corpuscular HGB Conc 35.3 g/dL (31.6-35.5); Mean Corpuscular Volume 93.5 fL (83.0-100.0); Mean Platelet Volume 11.9 fL (9.4-12.4); Platelet Count 132 K/mcL (140-400); Red Blood Count 3.39 M/mcL (4.19-5.50); Red Cell Distribution Width 11.8 % (11.5-14.5)
[2019-01-05 06:51] LABS: Calcium 8.7 mg/dL (8.6-10.3); Potassium 3.2 mEq/L (3.5-5.1)
--- NOTE | 2019-01-05 11:02 | Urology Progress Note ---
<Marleny Goldsmith N - Last Filed: 01/05/19 11:00> Date of Encounter: 01/05/19 Time of Encounter: 09:20 - Assessment and Plan (1) Bladder cancer Status: Acute Assessment and plan: Patient is a 68-year-old male who presents with high-grade, muscle invasive bladder cancer. Unfortunately, patient has experienced such significant bladder dysfunction that the ureteral stents failed. Patient is status post bilateral nephrostomy tube placement with great improvement in serum creatinine from 8.02 -2.26. Patient has appointment scheduled with [facility] to further discuss options of management, including radical cystectomy and chemotherapy. Patient may be discharged with bilateral nephrostomy tubes with instructions on how to empty and manage. Nursing staff to please provide patient with leg bag instructions and straps. Qualifiers: Bladder location: unspecified site Qualified Code(s): C67.9 - Malignant neoplasm of bladder, unspecified Progress Note Subjective: no new complaints, feels better Narrative: Patient seen and examined sitting upright in bed eating breakfast in no apparent distress. Patient is tolerating normal diet without nausea or vomiting. Patient has indwelling nephrostomy tubes that are draining sufficiently. Objective Initial Vital Signs Temp Pulse Resp BP Pulse Ox 98.1 F 81 18 142/63 99 01/03/19 09:22 01/03/19 09:22 01/03/19 09:22 01/03/19 09:22 01/03/19 09:22 - General physical appearance Present: no distress, no pain - Respiratory Present: normal expansion, normal respiratory effort - Abdomen Present: soft, non tender - Genitourinary Present: other Urine Appearance: Present: Clear (Bilateral nephrostomy tubes indwelling and draining sufficiently, right nephrostomy tube with scant amount of blood in bag) - Integumentary Present: no rash, no abnormal pigmentation - Musculoskeletal Present: normal posture - Psychiatric Present: oriented to time, oriented to person, oriented to place, speech is normal, memory intact - Labs 01/05/19 06:10 01/05/19 06:10 Diabetes panel 01/05/19 Range/Units 06:10 Sodium 144 (136-145) mEq/L Potassium 3.2 L (3.5-5.1) mEq/L Chloride 106 (98-107) mEq/L Carbon Dioxide 26 (23-29) mEq/L BUN 32 H (8-23) mg/dL Creatinine 2.26 H (0.70-1.30) mg/dL Glucose 116 H (70-105) mg/dL Calcium 8.7 (8.6-10.3) mg/dL Calcium panel 01/05/19 Range/Units 06:10 Calcium 8.7 (8.6-10.3) mg/dL Pituitary panel 01/05/19 Range/Units 06:10 Sodium 144 (136-145) mEq/L Potassium 3.2 L (3.5-5.1) mEq/L Chloride 106 (98-107) mEq/L Carbon Dioxide 26 (23-29) mEq/L BUN 32 H (8-23) mg/dL Creatinine 2.26 H (0.70-1.30) mg/dL Glucose 116 H (70-105) mg/dL Calcium 8.7 (8.6-10.3) mg/dL Adrenal panel 01/05/19 Range/Units 06:10 Sodium 144 (136-145) mEq/L Potassium 3.2 L (3.5-5.1) mEq/L Chloride 106 (98-107) mEq/L Carbon Dioxide 26 (23-29) mEq/L BUN 32 H (8-23) mg/dL Creatinine 2.26 H (0.70-1.30) mg/dL Glucose 116 H (70-105) mg/dL Calcium 8.7 (8.6-10.3) mg/dL Consult Discharge Plan - Plan Instructions: Amlodipine (By mouth) Referrals: Sammy Guan MD [Primary Care Provider] - (Patient to call once home to schedule a hospital follow up in 5-7 days per office. ) Prescriptions: amLODIPine [Norvasc] 5 mg PO DAILY #30 tablet <Nicola Ahuja - Last Filed: 01/06/19 07:21> Date of Encounter: 01/06/19 - Assessment and Plan (1) Bladder cancer Status: Acute Assessment and plan: I agree with assessment and plan by physician budget assistant. Patient will maintain outpatient follow-up with [facility] urology. We will likely require neoadjuvant chemotherapy and radical cystectomy Qualifiers: Bladder location: unspecified site Qualified Code(s): C67.9 - Malignant neoplasm of bladder, unspecified Objective Initial Vital Signs Temp Pulse Resp BP Pulse Ox 98.1 F 81 18 142/63 99 01/03/19 09:22 01/03/19 09:22 01/03/19 09:22 01/03/19 09:22 01/03/19 09:22 - Labs 01/05/19 06:10 01/05/19 06:10
[2019-01-05 11:24] VITALS: BP 133/92
--- NOTE | 2019-01-05 13:32 | Discharge Summary ---
- NOTES TO OUTPATIENT PROVIDER Notes to Outpatient Provider: follow up with urology and nephrology and [facility] oncology Date of Encounter: 01/05/19 Time of Encounter: 13:29 - Discharge Diagnosis (1) ARF (acute renal failure) Priority: Primary Status: Acute Qualifiers: Acute renal failure type: unspecified Qualified Code(s): N17.9 - Acute kidney failure, unspecified (2) Bladder cancer Priority: Secondary Status: Acute Qualifiers: Bladder location: unspecified site Qualified Code(s): C67.9 - Malignant neoplasm of bladder, unspecified (3) Hydronephrosis Priority: Secondary Status: Acute Qualifiers: Qualified Code(s): N13.2 - Hydronephrosis with renal and ureteral calculous obstruction (4) Hypertension Priority: Secondary Status: Acute Qualifiers: Hypertension type: essential hypertension Qualified Code(s): I10 - Essential (primary) hypertension (5) BPH (benign prostatic hyperplasia) Priority: Secondary Status: Acute Qualifiers: Lower urinary tract symptom presence: unspecified whether lower urinary tract symptoms present Qualified Code(s): N40.0 - Benign prostatic hyperplasia without lower urinary tract symptoms (6) Hypokalemia Priority: Secondary Status: Acute (7) DVT prophylaxis Priority: Secondary Status: Acute Hospital course: "Mr. Meredith is a 68 year old male with pmh of bladder cancer, bilateral hydronephrosis due to mass s/p recent stent placement, hypertension presenting with complaints of being sent here for elevated creatinine and low potassium on labs. He recently had AMISHA due to hydronephrosis and had stents placed. He was discharged on 12/23. He had a routine follow up BMP showing a creatinine of 8 and a potassium of 2.6. He says since he was discharged, he has been having pressure like abdominal pain and decreased urination. He denies any other acute complaints" IR was consulted from the ER and he had bilateral nephrostomy tubes placed. His tubes are draining clear urine, and he has drained about a liter of fluid since tubes were placed. He also says his abdominal pain has improved. baseline creatinine was 1.49 on 12/23/18 trended up to 8 on 01/03 however it has trended down to 2.26 on 01/04. nephrology and urology were consulted and cleared the patient for discharge he was counseled on improtance of oral hydration. lisinopril, HCTZ was discontinued and he was started on Amlodipine for BP control as he has ARF. for PCP to follow BP and adjust BP medications as per their discretion. electrolytes were replaced. to have BMP repeated in one week. follow up with [facility] january 17 to further discuss options of management, including radical cystectomy and chemotherapy. Patient may be discharged with bilateral nephrostomy tubes with instructions on how to empty and manage. Nursing staff instructed to please provide patient with leg bag instructions and straps. [employer] referral was made for the patient. OP follow up with nephrology and urology and oncology. further imaging to complete staging with CT C/A/P w/contrast and a bone scan ordered by oncology for january 13 Discharge discussed with: patient, nurse, technical solutions consultant - Time Spent with Patient Total time spent providing and/or coordinating discharge services: Time spent: Greater than 30 minutes (35) - Discharge Medications Prescriptions: New amLODIPine [Norvasc] 5 mg PO DAILY #30 tablet Continued Doxazosin [Cardura] 4 mg PO HS Oxybutynin [Ditropan] 5 mg PO BID 30 Days #60 tablet Tamsulosin [Flomax] 0.4 mg PO DAILY 30 Days #30 capsule Acetaminophen/Diphenhydramine [Eql Acetaminophen Pm Gelcap] 1 each PO HS Discontinued Lisinopril-HCTZ 10-12.5 [Prinzide 10-12.5] 1 each PO DAILY Home Medications: Doxazosin [Cardura] 4 mg PO HS 12/20/18 [History] Oxybutynin [Ditropan] 5 mg PO BID 30 Days #60 tablet 12/23/18 [Rx] Tamsulosin [Flomax] 0.4 mg PO DAILY 30 Days #30 capsule 12/23/18 [Rx] Acetaminophen/Diphenhydramine [Eql Acetaminophen Pm Gelcap] 1 each PO HS 01/03/19 [History] amLODIPine [Norvasc] 5 mg PO DAILY #30 tablet 01/05/19 [Rx] Allergies/Adverse Reactions: Allergy/AdvReac Type Severity Reaction Status Date / Time No Known Allergies Allergy Verified 01/02/19 10:47 Date of admission: 01/03/19 16:01 Primary care physician: Sammy Guan MD Consults: 01/03/19 12:31 Consult to Interventional Radiology [CONS] Stat Consulting Provider: Radiology Interventional Cols Reason for Consult: nephrostomy tube placement Time Notified: 12:32 Call Completed: Yes 01/03/19 12:36 Consult to Nephrology [CONS] Routine Consulting Provider: Kidney Gris/MALNEA/MARIA ELENA/[place] Reason for Consult: acute renal failure Call Completed: No 01/03/19 12:38 Consult to Urology [CONS] Routine Consulting Provider: Urology Gris Reason for Consult: hydronephrosis Call Completed: No 01/03/19 18:10 Consult to Nutrition [CONS] Routine Comment: Consulting Provider: NUTRITION Reason for Dietary Consult: MST Score - Constitutional Vitals: Temp Pulse Resp BP Pulse Ox 97.5 F L 73 16 133/92 96 01/05/19 11:24 01/05/19 11:24 01/05/19 11:24 01/05/19 11:24 01/05/19 11:24 Exam: General: Patient is alert, oriented, no acute distress, Head: atraumatic, normocephalic, Eye: normal appearance,no scleral icterus, no conjunctival injection Chest: normal inspection, symmetric chest rise Respiratory: Good respiratory effort. Bilateral breath sounds are clear without wheezing, crackles, or rhonchi. Cardiovascular: Regular rate and rhythm. s1 and s2 No clicks, rubs, gallops, or murmors. Abdomen: Bowel sounds present normoactive x-4 quadrants. Abdomen is soft, nondistended. no Epigastric tenderness. No guarding or rebound. No organomegaly noted, has bilateral nephrostomy tubes draining yellow urine. musculoskeletal: Spontaneously moving all extremities. no edema, no calf tenderness Skin: warm, dry, intact. Neuro: Alert and oriented x4. no focal deficit Psych: Patient's affect is normal - Patient Status Disposition: Home Health Service Condition: Fair Functional capacity at discharge: independent ambulation Overall status at discharge: patient is progressing back to baseline - Ambulatory Orders Ambulatory Orders: Basic Metabolic Panel [CHEM] Time Frame: 1 Week, Facility: [facility], Location: Lab - Discharge Instructions Follow Up With: Sammy Guan MD [Primary Care Provider] - - Diet and Activity Activity: increase activity as tolerated Diet: low salt diet
--- NOTE | 2019-01-05 13:41 | Physician Discharge Referral ---
Home Health/Hosp Referral Info Transfer to: Home Health Provider in Charge Post Discharge: PCP - Diagnosis (1) ARF (acute renal failure) Status: Acute (2) Bladder cancer Status: Acute (3) Hydronephrosis Status: Acute (4) Hypertension Status: Acute (5) BPH (benign prostatic hyperplasia) Status: Acute (6) Hypokalemia Status: Acute (7) DVT prophylaxis Status: Acute - Respiratory Orders Smoking Cessation: Smoking cessation has been advised. For more information, call the [place] Tobacco Quit Line at 3-540-REZR-NOW. - Services Needed Following services are medically necessary services: Nursing (for nephrostomy tube care) - Transfer Medications Prescriptions: amLODIPine [Norvasc] 5 mg PO DAILY #30 tablet Home Medications: Doxazosin [Cardura] 4 mg PO HS 12/20/18 [History] Oxybutynin [Ditropan] 5 mg PO BID 30 Days #60 tablet 12/23/18 [Rx] Tamsulosin [Flomax] 0.4 mg PO DAILY 30 Days #30 capsule 12/23/18 [Rx] Acetaminophen/Diphenhydramine [Eql Acetaminophen Pm Gelcap] 1 each PO HS 01/03/19 [History] amLODIPine [Norvasc] 5 mg PO DAILY #30 tablet 01/05/19 [Rx] Allergies/Adverse Reactions: Allergy/AdvReac Type Severity Reaction Status Date / Time No Known Allergies Allergy Verified 01/02/19 10:47 Certification: Further, I certify that my clinical findings support that this patient is homebound (i.e. absences from home require considerable and taxing effort and are for medical reasons or latter-day services or infrequently or short duration when for other reasons) because: Homebound Reason: Patient requires assistance of a person or device to safely leave home Attestation: My signature below is to certify that this patient is under my care and that I, or nurse practitioner, or a physician's video library assistant working with me, has a [id number] encounter with this patient.
--- NOTE | 2019-01-05 22:00 | Electrocardiograph Report ---
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
== END 2019-01-05 14:50 | disposition home health service (06) | DRG 687 ==
LOC: EMEROOARM 09:17 → 2ANU 16:01
PROVIDERS: ADMIT Student in an Organized Health Care Education/Training Program; ATTEND Student in an Organized Health Care Education/Training Program

== ENCOUNTER 2019-01-26 09:39 | Inpatient (IN) ==
--- NOTE | 2019-01-26 09:49 | Emergency Department Note ---
Disposition Clinical Impression: Altered mental status Qualifiers: Altered mental status type: transient alteration of awareness Qualified Code(s): R40.4 - Transient alteration of awareness Disposition: Admitted As Inpatient Condition: Undetermined Time of Disposition: 14:23 General Adult HPI - General Chief complaint: ED Urogenital-Male Stated complaint: elevated wbc Time Seen by Provider: 01/26/19 09:43 Nursing Notes Reviewed: Yes Vital Signs Reviewed: Yes - History of Present Illness HPI Narrative: 69-year-old male past medical history of bladder cancer with bilateral nephrostomy tube placements presenting to the ED over concerns of elevated white blood cell count hindering his chemotherapy treatments. Patient states that he has generalized malaise but no concerns or complaints at this time. Pain Scale: 0 - Related Data Home Medications Medication Instructions Recorded Confirmed Doxazosin [Cardura] 4 mg PO HS 12/20/18 01/26/19 Acetaminophen/Diphenhydramine [Eql 1 each PO HS 01/03/19 01/26/19 Acetaminophen Pm Gelcap] Lisinopril-HCTZ 10-12.5 [Prinzide 1 each PO DAILY 01/18/19 01/26/19 10-12.5] OxyCODONE/APAP 5/325 [Percocet 1 each PO ONCE 01/18/19 01/26/19 5/325 MG] Docusate [Colace] 100 mg PO DAILY 01/25/19 01/26/19 Oxybutynin [Ditropan] 5 mg PO DAILY 01/25/19 01/26/19 Tamsulosin [Flomax] 0.4 mg PO DAILY 01/25/19 01/26/19 Previous Rx's Medication Instructions Recorded amLODIPine [Norvasc] 5 mg PO DAILY #30 tablet 01/05/19 Allergies Allergy/AdvReac Type Severity Reaction Status Date / Time No Known Allergies Allergy Verified 01/25/19 08:09 Review of Systems: *See History of Present Illness for more detail Constitutional: Denies: fever, chills Cardiovascular: Denies: chest pain Respiratory: Denies: dyspnea, cough, hemoptysis Gastrointestinal: Denies: abdominal pain, nausea, vomiting, diarrhea, constipation, hematemesis, melena, hematochezia Genitourinary: Denies: hematuria Musculoskeletal: Denies: back pain, neck pain Neurological: Denies: headache, weakness, lightheadedness/dizziness, numbness, paresthesias, difficulty with ambulation. Endocrine: Admits fatigue, malaise All systems ED: reviewed and negative except as stated. Review of Systems: As Per HPI Past Medical History - Past Medical History Medical history: Reports: cancer, hypertension Surgical history: Reports: appendectomy Psychiatric history: Reports: no psych history - Social History Smoking Status: Never smoker Smokeless Tobacco Status: No Alcohol use: Reports: none Drug use: Reports: none Physical Exam Constitutional: No acute distress, [id number], engaged to conversation, speech is fluid, answers questions appropriately Neuro: GCS 15, no overt focal neurological deficits Head: Atraumatic, normocephalic Eyes: Pupils equal, round and reactive to light, no scleral icterus, no con junctival injection Neck: Trachea midline without deviation. Anterior neck is supple without swelling. *Chest: Symmetric chest wall rise *Heart: Cardiac rhythm and rate are regular with S1 and S2 , no S3 or S4 appreciated, no murmurs, gallops, rubs, or clicks. *Lungs: Lungs are clear to auscultation bilaterally, without accessory muscle use or prolonged expiratory phase. No wheezes, rhonchi or stridor appreciated. Abdomen: Abdomen is flat, soft to palpation, normal bowel sounds. No abdominal bruit auscultated. Non-distended, non-rigid, no organomegaly, no ascites a ppreciated. No pulsatile mass, no tenderness or guarding to palpation in all four quadrants, no rebound Extremities: Normal capillary refill without evidence of pedal edema, joint swelling or erythema. Pulses/motor/sensory intact in all 4 extremities. Psychiatric exam: Patient displays a normal affect and mood for the environment. No overt signs of hallucination. Integumentary: warm, dry, intact, normal color. No rash, cyanosis, diaphoresis, erythema, or pallor - General Limitations: no limitations General appearance: alert, in no apparent distress Course Course Narrative: IV fluids, broad-spectrum antibiotic Abdominal labs CT scan of the head Urinalysis, lactic acid. - Reevaluation(s) Reevaluation #1: Patient became unresponsive in ED with generalized convulsions, appeared to have grunting repetitive sounds along with left sided ocular deviation. Suspected seizure quickly resolved with patient experiencing 5-10 minute apparent postictal period. Patient was hypotensive and tachycardic to this time but rapidly returned to baseline with the administration of IV fluids. Patient became alert and oriented to his surroundings [place] Coma Scale of 15 states that he just felt like he was going to get sick and then does not remember the next episode. Vital Signs Temperature 98.4 F 01/26/19 09:40 Pulse Rate 87 01/26/19 09:40 Respiratory Rate 18 01/26/19 09:40 Blood Pressure 122/77 01/26/19 09:40 O2 Sat by Pulse Oximetry 100 01/26/19 09:40 Temperature 98.3 F 01/26/19 12:04 Pulse Rate 91 01/26/19 15:45 Respiratory Rate 18 01/26/19 15:45 Blood Pressure 127/70 01/26/19 15:45 O2 Sat by Pulse Oximetry 99 01/26/19 15:45 Oxygen Delivery Oxygen Delivery Room Air Medical Decision Making - MDM Narrative Medical decision making narrative: Patient admitted to hospitalist medicine service for further evaluation and management of new onset seizure in the setting of bladder cancer. Concern for metastatic disease Neurology and oncology consulted and are following. Patient might bedside verbalize understanding and agreement with this plan. I reviewed the residents documentation and agree with the residents assessment and plan of care. I have personally had face to face time with the patient. (Brief History, Brief Exam, and MDM) I personally supervised and was present for the vallejo/critical portions of the following procedures completed by the resident: (add procedures performed here). EKG was interpreted by Dr. Au under my supervision I agree with his interpretation. 1246 hrs.: Patient had an episode where he got tachycardic into the 140s, got bradycardic down into the 60s, had less responsive, had pinpoint pupils and sonorous respirations. He did not gotten any pain medication. I think he had a seizure the nurse that he started shaking this was after getting Rocephin but he had no difficulty breathing, no difficulty swallowing, no rash. He does not have any allergies to medications. This sounds similar to what happened this morning also as he was also noted to be less responsive tachycardic and also hypotensive 2. He got fluids here. Fingerstick blood sugar was in the 140s. He has no neuro deficits he said he does not have any problems now. I think he had a postictal state. Rest CT his head. One sets back we will speak with oncology and hospitalist for admission. He does have a UTI. We will culture that urine Chest X-Ray 01/26/19 09:49 IMPRESSION: No acute process. D/ / Ambar Du MD / Ambar Du MD Interpreting Provider: Ambar Du MD Head CT 01/26/19 11:58 IMPRESSION: Mild subcortical white matter hypoattenuation in the right frontal lobe which could represent small vessel ischemic disease, though consider MRI for further evaluation given history of seizure and malignancy. D/ / Willie Worley MD / Willie Worley MD Interpreting Provider: Willie Worley MD 1311 hrs. we will speak with oncology and neurology about patient. - Lab Data Lab results reviewed: Yes I reviewed the patient's lab results. Result diagrams: 01/26/19 10:29 Lab Results 01/26/19 01/26/19 01/26/19 Range/Units 10:29 10:29 10:45 Sodium 136 (136-145) mEq/L Potassium 4.2 (3.5-5.1) mEq/L Chloride 101 (98-107) mEq/L Carbon Dioxide 24 (23-29) mEq/L BUN 19 (8-23) mg/dL Creatinine 1.16 (0.70-1.30) mg/dL Est GFR ( Amer) > 60 (> 60) Est GFR (Non-Af Amer) > 60 (> 60) BUN/Creatinine Ratio 16 (6-26) Glucose 119 H (70-105) mg/dL Calculated Osmolality 285 (280-300) Lactic Acid (0.5-2.2) mmol/L Calcium 9.3 (8.6-10.3) mg/dL Ur Specimen Adequacy See below A Urine Color Yellow (Yellow) Urine Clarity Cloudy A (Clear) Urine pH 7.5 (5.0-8.0) pH Units Ur Specific [place] < 1.005 L (1.010-1.025) Urine Protein >=300 H (Neg-Trace) mg/dL Urine Glucose (UA) Normal (Normal) mg/dL Urine Ketones Negative (Negative) mg/dL Urine Blood Moderate H (Negative) Urine Nitrite Negative (Negative) Urine Bilirubin Negative (Negative) Urine Urobilinogen Normal (Normal) mg/dL Ur Leukocyte Esterase Small H (Negative) Urine Microscopic RBC 5-15 H (0-3) per hpf Urine Microscopic WBC 30-50 H (0-3) per hpf Ur Squamous Epith Cells Moderate H (None-Few) per lpf Urine Bacteria Many H (None-Few) per hpf Hyaline Casts None Seen (None-Few) per lpf Ur Culture Indicated? YES A (NO) Specimen Rejected Hemolyzed 01/26/19 01/26/19 Range/Units 11:28 12:29 Sodium (136-145) mEq/L Potassium (3.5-5.1) mEq/L Chloride (98-107) mEq/L Carbon Dioxide (23-29) mEq/L BUN (8-23) mg/dL Creatinine (0.70-1.30) mg/dL Est GFR ( Amer) (> 60) Est GFR (Non-Af Amer) (> 60) BUN/Creatinine Ratio (6-26) Glucose (70-105) mg/dL Calculated Osmolality (280-300) Lactic Acid 1.3 4.8 H* (0.5-2.2) mmol/L Calcium (8.6-10.3) mg/dL Ur Specimen Adequacy Urine Color (Yellow) Urine Clarity (Clear) Urine pH (5.0-8.0) pH Units Ur Specific [place] (1.010-1.025) Urine Protein (Neg-Trace) mg/dL Urine Glucose (UA) (Normal) mg/dL Urine Ketones (Negative) mg/dL Urine Blood (Negative) Urine Nitrite (Negative) Urine Bilirubin (Negative) Urine Urobilinogen (Normal) mg/dL Ur Leukocyte Esterase (Negative) Urine Microscopic RBC (0-3) per hpf Urine Microscopic WBC (0-3) per hpf Ur Squamous Epith Cells (None-Few) per lpf Urine Bacteria (None-Few) per hpf Hyaline Casts (None-Few) per lpf Ur Culture Indicated? (NO) Specimen Rejected - Radiology Data Radiology results reviewed: Yes I reviewed the patient's radiology results. Chest X-Ray 01/26/19 09:49 IMPRESSION: No acute process. D/ / Ambar Du MD / Ambar Du MD Interpreting Provider: Ambar Du MD Head CT 01/26/19 11:58 IMPRESSION: Mild subcortical white matter hypoattenuation in the right frontal lobe which could represent small vessel ischemic disease, though consider MRI for further evaluation given history of seizure and malignancy. D/ / Willie Worley MD / Willie Worley MD Interpreting Provider: Willie Worley MD Critical Care Time Critical Care Time: Yes Total Critical Care Time: 50 Attestation: Excluding any separately billable procedures Attestation Statement - Attestation Attestation: This documentation is done with the assistance of Dragon dictation. Despite efforts made to ensure accuracy, there may be inaccuracies in motor vehicle escort driver or spelling and typographical errors. I examined this patient and my medical decision-making was reviewed with the Resident Physician. I agree with the documented findings, disposition and treatment plan as described except to the extent set forth below. Patient seen and evaluated today by Dr. Chery and myself, I agree with his evaluation and management plan, supervise care the patient's stay. Patient presents today with elevation in his white count. He has a history of bladder cancer. Following up in had 13,000 white count as an outpatient today repeated it was 15,000. He said he feels fine no fever. His sites look good. We will order a workup on her and then speak with his oncologist.
[2019-01-26 10:58] LABS: BUN/Creatinine Ratio 16 (6-26); Blood Urea Nitrogen 19 mg/dL (8-23); Calcium 9.3 mg/dL (8.6-10.3); Carbon Dioxide 24 mEq/L (23-29); Chloride 101 mEq/L (98-107); Glucose 119 mg/dL (70-105); Osmolality,Calculated 285 (280-300); Potassium 4.2 mEq/L (3.5-5.1); Sodium 136 mEq/L (136-145); eGFR For African Americans > 60 (> 60); eGFR For Non-African Americans > 60 (> 60)
[2019-01-26 11:05] LABS: Bilirubin,Urine Negative (Negative); Blood,Urine Moderate (Negative); Clarity,Urine Cloudy (Clear); Color,Urine Yellow (Yellow); Glucose,Urine (UA) Normal (Normal); Ketones,Urine Negative (Negative); Leukocyte Esterase,Urine Small (Negative); Nitrite,Urine Negative (Negative); PH,Urine 7.5 pH Units (5.0-8.0); Protein,Urine >=300 mg/dL (Neg-Trace); Specific Gravity,Urine < 1.005 (1.010-1.025); Urobilinogen,Urine Normal (Normal)
[2019-01-26 11:07] LABS: Bacteria,Urine Many per hpf (None-Few); Hyaline Casts,Urine None Seen per lpf (None-Few); Squamous Epithelial Cell,Urine Moderate per lpf (None-Few); WBC,Urine 30-50 per hpf (0-3)
[2019-01-26] MEDS ORDERED: cefTRIAXone 1,000 MG in Water for inj. (sterile) 20 ML 10 ML IVP ONE (11:39)
[2019-01-26] MEDS ORDERED: Naloxone 0.4 MG/ML INJ ONE (11:59)
[2019-01-26] MEDS ORDERED: 0.9 % Sodium Chloride 1,000 ML ONE ×2 (12:00→12:03)
[2019-01-26] MEDS ORDERED: 0.9 % Sodium Chloride 1,000 ML IVC ONE ×2 (12:15)
[2019-01-26] MEDS ORDERED: Gentamicin 380 MG in 0.9 % Sodium Chloride 100 ML IVPB ONE (13:00)
[2019-01-26] MEDS ORDERED: Gadolinium Contrast Agent (WT Based) IV PRN (13:23)
--- NOTE | 2019-01-26 14:24 | Neurology - Consult Note ---
Date of Encounter: 01/26/19 Time of Encounter: 13:51 Assessment and Plan (1) Seizure-like activity Current Visit: Yes Status: Acute witnessed "jerking" seizure-like activity with staring spell this afternoon while in the ED No prior h/o seizure disorder, no family hx. This was the first ever seizure event Has recent dx of bladder cancer CT imaging showing mild subcortical white matter hypoattenuation in the right frontal lobe which could represent small vessel ischemic disease although given history need to rule out malignancy PLAN: MRI brain with and without contrast to evaluate subcortical white matter hypoattenuation and/or organic cause of seizures Procedures EEG We do not recommend AEDs at this time Continue with seizure precautions Agree with PRN ATIVAN FOR BREAKTHROUGH SEIZURES History of Present Illness Chief complaint: r/o seizures HPI: Mr. Meredith is a 69 year old male with a PMH of bladder cancer and HTN. Neurology has been consulted for evaluation of possible seizure activity. The patient was seen and examined at the bedside today in the ED. He is A&OX3 but denies recollection of any of this afternoons events. He reports that he was receiving an IV ABX and suddenly developed nausea. Shortly thereafter, he developed as his states "jerking of his entire bodies most notably in his extremities" with staring spells and an episode of unresponsiveness. This lasted approximately 2 minutes with postictal confusion. He denies any tongue bite, visual changes, headaches, dizzy spells, dysphagia, dysarthria or unilateral weakness. The seizure was self limited and he has not had any additional seizure events. A CT of the head was obtained and had the following findings; mild subcortical white matter hypoattentuation in the right frontal lo be which could represent small vessel ischemic disease. R/o seizure Past Med Surg Social Fam HX - Past Medical History Medical history: cancer, hypertension Additional medical history: bladder cancer, BPH Psychiatric history: no psych history - Past Surgical History Surgical History: appendectomy Additional surgical history: stents from kidney to bladder, bilat urostomy bags - Social History Smoking Status: Never smoker Smokeless Tobacco Status: No Alcohol use: none Drug use: none - Family History Mother Hx Family Cardiac Disorders: Yes (hypertension ) Medications and Allergies Doxazosin [Cardura] 4 mg PO HS 12/20/18 [History] Acetaminophen/Diphenhydramine [Eql Acetaminophen Pm Gelcap] 1 each PO HS 01/03/19 [History] amLODIPine [Norvasc] 5 mg PO DAILY #30 tablet 01/05/19 [Rx] Lisinopril-HCTZ 10-12.5 [Prinzide 10-12.5] 1 each PO DAILY 01/18/19 [History] OxyCODONE/APAP 5/325 [Percocet 5/325 MG] 1 each PO ONCE 01/18/19 [History] Docusate [Colace] 100 mg PO DAILY 01/25/19 [History] Oxybutynin [Ditropan] 5 mg PO DAILY 01/25/19 [History] Tamsulosin [Flomax] 0.4 mg PO DAILY 01/25/19 [History] Allergy/AdvReac Type Severity Reaction Status Date / Time No Known Allergies Allergy Verified 01/25/19 08:09 All Systems: The remainder of the systems were reviewed and are negative Review of Systems: REVIEW OF SYSTEMS GENERAL: Negative for any nausea, vomiting, fevers, chills NEUROLOGIC: Negative for any blurry vision, blind spots, double vision, facial asymmetry, dysphagia, dysarthria, hemiparesis, hemisensory deficits, vertigo, ataxia, paralysis, tingling, numbness, unilateral weakness or numbness/tingling Positive: jerking of BUE, BLE and truncal jerking (seizure-like activity) Physical Examination - Vital Signs Vital Signs: Initial Vital Signs Temp Pulse Resp BP Pulse Ox 98.4 F 87 18 122/77 100 01/26/19 09:40 01/26/19 09:40 01/26/19 09:40 01/26/19 09:40 01/26/19 09:40 - Exam Exam: Examination: General Examination: *CONSTITUTIONAL: Alert and oriented x3, no acute distress *GENERAL APPEARANCE OF PATIENT appears healthy and well groomed *EYES: pupils equal, round, reactive to light and accommodation, conjunctiva clear *CARDIOVASCULAR no peripheral edema, distal temperature normal, dorsalis pedis pulses normal. see vitals Musculoskeletal: *GAIT AND STATION deferred d/t recent seizure-like activity *ASSESSMENT OF MUSCLE STRENGTH IN THE UPPER AND LOWER EXTREMITIES bilateral deltoid, bicep, tricep, mask layout designer strength, hip flexors ,anterior tibialis, dorsoflexion of the foot 5/5 *MUSCLE TONE IN THE UPPER AND LOWER EXTREMITIES normal. No abnormal movements, fasciculations or atrophy identified. Neurological: *ORIENTATION to person, situation, time and place *RECURRENT AND REMOTE MEMORY intact *ATTENTION AND CONCENTRATION are normal *LANGUAGE FUNCTION no significant aphasia or dysarthia was noted. *FUND OF KNOWLEDGE aware of current events, past history, vocabulary *MENTAL attention span and concentration normal. *CN II optic fundi were normal, no papilledema noted. *CN III,IV, PERRLA extraocular eye movements were full, no nystagmus and no ptosis noted. *CN V shows normal sensation and jaw opens symmetrically. *CN VII shows normal facial movement symmetrically, upper and lower bilaterally. *CN VIII shows no significant hearing loss on exam *CN IX,,X palate elevated symmetrically *CN XI normal strength in the sternocleidomastoid muscles, symmetrical shoulder shrugging. *CN XII tongue protruded in the midline, with normal strength and movement. *SENSORY EXAMINATION light touch intact *REFLEXES: deep tendon reflexes were normal and symmetrical , grade 1/4 diffusely, no pathological reflexes were noted. *CEREBELLAR TESTING normal finger to nose, heel/knee/park *PAIN LEVEL 0/10 Results - Laboratory Findings CBC and BMP: 01/26/19 10:29 Abnormal lab findings: Abnormal lab results Glucose 119 mg/dL (70-105) H 01/26/19 10:29 Lactic Acid 4.8 mmol/L (0.5-2.2) H* 01/26/19 12:29 Ur Specimen Adequacy See below A 01/26/19 10:45 Cloudy (Clear) A 01/26/19 10:45 Ur Specific [place] < 1.005 (1.010-1.025) L 01/26/19 10:45 >=300 mg/dL (Neg-Trace) H 01/26/19 10:45 Moderate (Negative) H 01/26/19 10:45 Ur Leukocyte Esterase Small (Negative) H 01/26/19 10:45 5-15 per hpf (0-3) H 01/26/19 10:45 30-50 per hpf (0-3) H 01/26/19 10:45 Ur Squamous Epith Cells Moderate per lpf (None-Few) H 01/26/19 10:45 Many per hpf (None-Few) H 01/26/19 10:45 Ur Culture Indicated? YES (NO) A 01/26/19 10:45 - Diagnostic Findings Additional findings: CT/CT head/brain wo con IMPRESSION: Mild subcortical white matter hypoattenuation in the right frontal lobe which could represent small vessel ischemic disease, though consider MRI for further evaluation given history of seizure and malignancy. Consult Discharge Plan - Plan
[2019-01-26] MEDS ORDERED: *HR* LORazepam 2 MG/ML VIAL IVP PRN ×2 (15:04→16:36)
[2019-01-26] MEDS ORDERED: Naloxone 0.4 MG/ML INJ IVP PRN (16:31)
[2019-01-26] MEDS: Piperacillin/Tazobactam 3.375 GM in 0.9 % Sodium Chloride Mini Bag 100 ML IVPB SCH (18:55)
--- NOTE | 2019-01-26 19:21 | Internal Med History&Physical ---
Date of Encounter: 01/26/19 Time of Encounter: 18:00 Internal Medicine - H&P: HPI Chief complaint: Sent to the ER for high WBC count History of present illness: Mr. Meredith is a 69 year old male with pmh of bladder cancer s/p bilateral nephrostomy tubes for acute renal failure. He was scheduled to start on chemotherapy for bladder cancer and was supposed to have a port placed. But apparently his WBC was elevated at 15 and he was sent to the ER. He denies any acute complaints otherwise. In the ER, he was given one dose of ceftriaxone and as soon as the medication was started, he had seizure like activity that lasted a couple of seconds. The medication was stopped and neuro was consulted. HE had an EEG done and an MRI is pending. He was also hypotensive inn the ER He is being admitted for sepsis 2/2 to UTI and possible new seizures. Past Med Surg Social Fam HX - Past Medical History Medical history: cancer, hypertension Additional medical history: bladder cancer, BPH Psychiatric history: no psych history - Past Surgical History Surgical History: appendectomy Additional surgical history: stents from kidney to bladder, bilat nephrostomy bags - Social History Smoking Status: Never smoker Smokeless Tobacco Status: No Alcohol use: none Drug use: none - Family History Mother Hx Family Cardiac Disorders: Yes (hypertension ) Internal Medicine - H&P: Meds Doxazosin [Cardura] 4 mg PO HS 12/20/18 [History] Acetaminophen/Diphenhydramine [Eql Acetaminophen Pm Gelcap] 1 each PO HS 01/03/19 [History] amLODIPine [Norvasc] 5 mg PO DAILY #30 tablet 01/05/19 [Rx] Lisinopril-HCTZ 10-12.5 [Prinzide 10-12.5] 1 each PO DAILY 01/18/19 [History] OxyCODONE/APAP 5/325 [Percocet 5/325 MG] 1 each PO ONCE 01/18/19 [History] Docusate [Colace] 100 mg PO DAILY 01/25/19 [History] Oxybutynin [Ditropan] 5 mg PO DAILY 01/25/19 [History] Tamsulosin [Flomax] 0.4 mg PO DAILY 01/25/19 [History] Allergy/AdvReac Type Severity Reaction Status Date / Time No Known Allergies Allergy Verified 01/25/19 08:09 All Systems PM: A 10-system review of systems was performed and is negative for pertinent findings except as documented above in the HPI. - Constitutional Constitutional: no chills, no fever(s), no night sweats - EENT Eyes: no change in vision, no discharge, no pain, no photophobia Ears: no ear discharge, no ear pain, no tinnitus Nose, mouth and throat: no dysphagia, no nasal discharge, no neck pain, no sore throat - Cardiovascular Cardiovascular ROS IM: no chest pain, no diaphoresis, no dyspnea, no lightheadedness, no palpitations, no syncope - Respiratory Respiratory: no cough, no dyspnea, no wheezing, no excessive phlegm production - Gastrointestinal Gastrointestinal: no abdominal pain, no diarrhea, no hematemesis, no hematochezia, no melena, no nausea, no vomiting - Musculoskeletal Musculoskeletal ROS IM: no numbness, no tingling - Integumentary Integumentary IM: no rash, no unusual bruising - Neurological Neurological ROS: confusion, convulsions, no focal weakness, no numbness, no tingling, no tremor(s) - Hematologic/Lymphatic Hematologic/Lymphatic: no easy bruising - Constitutional Vitals: Temp Pulse Resp BP Pulse Ox 98.6 F 92 18 125/75 97 01/26/19 17:07 01/26/19 17:07 01/26/19 17:07 01/26/19 17:07 01/26/19 17:07 Exam: Bilateral nephrostomy tubes in place - Head Head exam: Present: atraumatic, normocephalic - Eye Eye exam: Present: PERRL, conjuntiva pink, sclera anicteric Pupils: Present: PERRL - Neck Neck exam general surgery: Present: supple, trachea midline. Absent: lymphadenopathy - Respiratory Respiratory exam: Present: CTAB. Absent: accessory muscle use, rales, rhonchi, wheezes - Cardiovascular Cardiovascular exam: Present: RRR, +S1, +S2. Absent: diastolic murmur, gallop, rubs, systolic murmur - GI/Abdominal GI/Abdominal exam: Present: normal bowel sounds, soft, no peritoneal signs. Absent: distended, tenderness - Extremities Exam Extremities exam: Present: warm, radial pulses palpable and symmetrical. Absent: calf tenderness, cyanotic, pedal edema - Neurological Exam Neurological exam: Present: CN II-XII intact, oriented X3, no focal deficits. Absent: pronater drift, facial droop, speech deficit - Skin Skin exam: Present: dry, intact Internal Med - H&P Results - Labs CBC & Chem 7: 01/26/19 10:29 Labs: BMP 01/26/19 10:29 Sodium 136 Potassium 4.2 Chloride 101 Carbon Dioxide 24 BUN 19 Creatinine 1.16 Glucose 119 H Calcium 9.3 Urine 01/26/19 Range/Units 10:45 Urine Color Yellow (Yellow) Urine Clarity Cloudy A (Clear) Urine pH 7.5 (5.0-8.0) pH Units Ur Specific [place] < 1.005 L (1.010-1.025) Urine Protein >=300 H (Neg-Trace) mg/dL Urine Glucose (UA) Normal (Normal) mg/dL - Impressions ITS Impressions Chest X-Ray 01/26/19 09:49 IMPRESSION: No acute process. D/ / Ambar Du MD / Ambar Du MD Interpreting Provider: Ambar Du MD Head CT 01/26/19 11:58 IMPRESSION: Mild subcortical white matter hypoattenuation in the right frontal lobe which could represent small vessel ischemic disease, though consider MRI for further evaluation given history of seizure and malignancy. D/ / Willie Worley MD / Willie Worley MD Interpreting Provider: Willie Worley MD - Assessment and Plan (1) Sepsis associated hypotension Current Visit: Yes Status: Acute Assessment and plan: Pt comes in with leukocytosis and was hypotensive in the ER Possibly secondary to UTI sepsis. Obtain blood and urine cultures ON vanc and zosyn (2) Bladder cancer Current Visit: Yes Status: Acute Assessment and plan: Bladder cancer with hydronephrosis. Nephrostomy tubes in place bilaterally For inititation of chemotherapy once infection resolves Qualifiers: Bladder location: unspecified site Qualified Code(s): C67.9 - Malignant neoplasm of bladder, unspecified (3) Seizure-like activity Current Visit: Yes Status: Acute Assessment and plan: s/p one dose of ceftriaxone. Seen by neurology in ER No antiepileptic drugs initiated per neuro. Follow up EEG and MRI Ativan prn for breakthrough seizures (4) DVT prophylaxis Current Visit: Yes Status: Acute Assessment and plan: Heparin sc - Time Spent With Patient Total time spent is greater than 50% in coordination of care (as documented) at patient's floor/unit and/or counseling patient:
[2019-01-26] MEDS: *HR* OxyCODONE/APAP 5/325 TABLET PO PRN (19:38)
[2019-01-26] MEDS: Melatonin 3 MG TABLET PO SCH (22:42)
[2019-01-27] MEDS: Piperacillin/Tazobactam 3.375 GM in 0.9 % Sodium Chloride Mini Bag 100 ML IVPB SCH ×3 (01:13→17:31)
[2019-01-27 05:16] LABS: BUN/Creatinine Ratio 15 (6-26); Basophils % 0.2 %; Blood Urea Nitrogen 19 mg/dL (8-23); Calcium 8.9 mg/dL (8.6-10.3); Carbon Dioxide 23 mEq/L (23-29); Chloride 104 mEq/L (98-107); Eosinophils # 0.1 K/mcL (0.0-0.6); Eosinophils % 1.2 %; Glucose 117 mg/dL (70-105); Hematocrit 29.8 % (37.5-50.1); Immature Granulocytes % 1.8 % (0-4); Lymphocytes # 1.4 K/mcL (0.6-4.6); Lymphocytes % 13.9 %; Magnesium 1.9 mg/dL (1.6-2.6); Mean Corpuscular HGB Conc 33.9 g/dL (31.6-35.5); Mean Corpuscular Hemoglobin 32.6 pg (28.0-33.3); Mean Corpuscular Volume 96.1 fL (83.0-100.0); Mean Platelet Volume 10.6 fL (9.4-12.4); Monocytes # 0.5 K/mcL (0.0-1.3); Monocytes % 4.8 %; Osmolality,Calculated 287 (280-300); Phosphorous 3.4 mg/dL (2.7-4.5); Platelet Count 190 K/mcL (140-400); Potassium 4.1 mEq/L (3.5-5.1); Red Cell Distribution Width 12.3 % (11.5-14.5); Segmented Neutrophils % 78.1 %; Sodium 137 mEq/L (136-145); White Blood Count 10.2 K/mcL (4.3-11.1); eGFR For African Americans > 60 (> 60); eGFR For Non-African Americans 58 (> 60)
[2019-01-27 05:32] LABS: Hemoglobin 10.1 g/dL (12.9-16.9)
--- NOTE | 2019-01-27 08:12 | EEG/EMG/Oth Biometrics Report ---
EEG Procedure Report Date of procedure: 01/26/19 EEG Procedure: Routine EEG Procedure Note: This EEG was acquired with standard international 10-20 system with EKG recording. The background EEG activity was characterized by the presence of posterior dominant alpha rhythm with the best frequency up to 9 Hz. The background activity was reactive to eye openings. Sleep stages were characterized by the presence of background fragmentation, vertex waves, K complexes, and sleep spindles. There are no electrographic seizures identified during this tracing. There are no epileptiform discharges and focal slowing noted during this recording. Photic stimulation produced no abnormalities. Hyperventilation procedure was not performed. EKG tracing showed normal sinus rhythm. Impression: This is essentially a normal awake and asleep EEG. Clinical Correlation: Normal EEGs, however, do not exclude epilepsy. Clinical correlation advised.
[2019-01-27] MEDS: amLODIPine 5 MG TABLET PO SCH (08:13)
--- NOTE | 2019-01-27 09:00 | Neurology Progress Note ---
Date of Encounter: 01/27/19 Time of Encounter: 08:57 Assessment and Plan (1) Seizure-like activity Current Visit: Yes Status: Acute clinically the patient has remained stable without any development of neurological deficits since admission. He denies any return of syncope or seizure like activity. A seizure workup including an EEG was supplemented ye sterday. MRI of brain shows no evidence of intracranial metastatic disease. There is mild scattered foci of T2 white matter signal abnormalities which is a common finding of dubious clinical significance. There are thin diffuse dural enhancement a nonspecific finding that can relate to intracranial-hypotension recent lumbar puncture or other etiology. The EEG did not identify any epileptiform activity. Additionally, he is afebrile, denies headaches, neck stiffness or pain and does not appear to have nuchal rigidity or any other meningeal findings on exam. I do not suspect a FOOD [employer]EVER[employer] ASSOCIATE infection. I feel most likely at this juncture he has had an episode of convulsive syncope. That being said, neurology will set up at this time. Please reconsult should any further needs arise. Subjective Principal diagnosis: seizure-like activity Interval history: patient seen in follow-up for seizure-like activity. He was reported to have a witnessed jerking-like seizure event along with loss of consciousness yesterday afternoon while in the ED. He denies any return of seizure-like activity or loss of consciousness since admission. Neurologically remained intact as morning without any complaints at this time. An EEG was obtained which did not identify any epileptiform activity. He feels this juncture and most likely dealing with convulsive syncope. I do not suspect a [employer] BEVER[employer] ASSOCIATE infection as the patient is denying any nuchal rigidity fevers or headaches. Objective - Constitutional Vitals: Temp Pulse Resp BP Pulse Ox 98.0 F 85 18 125/76 95 01/27/19 06:32 01/27/19 06:32 01/27/19 06:32 01/27/19 06:32 01/27/19 06:32 Exam: Examination: General Examination: *CONSTITUTIONAL: Alert and oriented x4, no acute distress *GENERAL APPEARANCE OF PATIENT appears healthy and well groomed *EYES: pupils equal, round, reactive to light and accommodation, conjunctiva clear *CARDIOVASCULAR no peripheral edema, distal temperature normal, dorsalis pedis pulses normal. 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 No abnormal movements, fasciculations or atrophy identified. Neurological: *ORIENTATION A&OX4 *RECURRENT AND REMOTE MEMORY intact *ATTENTION AND CONCENTRATION are normal *LANGUAGE FUNCTION no significant aphasia or dysarthia was noted. *FUND OF KNOWLEDGE aware of current events, past history, vocabulary *MENTAL attention span and concentration normal. *CN II optic fundi were normal, no papilledema noted. *CN III,IV, PERRLA extraocular eye movements were full, no nystagmus and no ptosis noted. *CN V shows normal sensation and jaw opens symmetrically. *CN VII shows normal facial movement symmetrically, upper and lower bilaterally. *CN VIII shows no significant hearing loss on exam *CN IX,,X palate elevated symmetrically *CN XI normal strength in the sternocleidomastoid muscles, symmetrical shoulder shrugging. *CN XII tongue protruded in the midline, with normal strength and movement. *SENSORY EXAMINATION light touch intact *REFLEXES: deep tendon reflexes were normal and symmetrical , grade 1/4 diffusely, no pathological reflexes were noted. *CEREBELLAR TESTING normal finger to nose, heel/knee/park *PAIN LEVEL 0/10 Results - Laboratory Findings CBC and BMP: 01/27/19 04:08 01/27/19 04:08 Abnormal lab findings: Abnormal lab results RBC 3.10 M/mcL (4.19-5.50) L 01/27/19 04:08 Hgb 10.1 g/dL (12.9-16.9) L D 01/27/19 04:08 Hct 29.8 % (37.5-50.1) L 01/27/19 04:08 Est GFR (Non-Af Amer) 58 (> 60) L 01/27/19 04:08 Glucose 117 mg/dL (70-105) H 01/27/19 04:08 POC Glucose 142 mg/dL (70-99) H 01/26/19 12:01 Lactic Acid 4.8 mmol/L (0.5-2.2) H* 01/26/19 12:29 Ur Specimen Adequacy See below A 01/26/19 10:45 Cloudy (Clear) A 01/26/19 10:45 Ur Specific [place] < 1.005 (1.010-1.025) L 01/26/19 10:45 >=300 mg/dL (Neg-Trace) H 01/26/19 10:45 Moderate (Negative) H 01/26/19 10:45 Ur Leukocyte Esterase Small (Negative) H 01/26/19 10:45 5-15 per hpf (0-3) H 01/26/19 10:45 30-50 per hpf (0-3) H 01/26/19 10:45 Ur Squamous Epith Cells Moderate per lpf (None-Few) H 01/26/19 10:45 Many per hpf (None-Few) H 01/26/19 10:45 Ur Culture Indicated? YES (NO) A 01/26/19 10:45 Consult Discharge Plan - Plan Referrals: Sammy Guan MD [Primary Care Provider] - (Per Dr. Ying Office the patient has to make their own appointment)
--- NOTE | 2019-01-27 09:38 | Internal Med Progress Note ---
Hospitalist Progress Note - Encounter Date of Encounter: 01/27/19 Time of Encounter: 09:30 - Subjective Interval History: NO acute events overnight - Exam Vitals: Temp Pulse Resp BP Pulse Ox 98.0 F 84 18 125/76 95 01/27/19 06:32 01/27/19 08:15 01/27/19 06:32 01/27/19 06:32 01/27/19 06:32 Exam: Bilateral nephrostomy tubes in place General appearance: Present: A&O X 3, no acute distress Head exam: Present: normocephalic Respiratory exam: Present: CTAB. Absent: accessory muscle use, rales, rhonchi, wheezes Cardiovascular exam: Present: RRR, +S1, +S2. Absent: diastolic murmur, gallop, rubs, systolic murmur GI/Abdominal exam: Soft, NT, ND, +BS Extremities exam: Absent: pedal edema Neurological exam: Present: alert, oriented X3, no focal deficits. Absent: altered - Assessment and Plan (1) Sepsis associated hypotension Current Visit: Yes Status: Acute Assessment and Plan: Pt comes in with leukocytosis and was hypotensive in the ER Possibly secondary to UTI sepsis. Obtain blood and urine cultures ON vanc and zosyn. Leukocytosis trending down Attempted to have IR place port, but IR says it's only done outpatient (2) Bladder cancer Current Visit: Yes Status: Acute Assessment and Plan: Bladder cancer with hydronephrosis. Nephrostomy tubes in place bilaterally For inititation of chemotherapy once infection resolves (3) Seizure-like activity Current Visit: Yes Status: Acute Assessment and Plan: s/p one dose of ceftriaxone. Seen by neurology in ER No antiepileptic drugs initiated per neuro. Follow up EEG and MRI Ativan prn for breakthrough seizures (4) DVT prophylaxis Current Visit: Yes Status: Acute Assessment and Plan: Heparin sc - Time Spent with Patient Total time spent is greater than 50% in coordination of care (as documented) at patient's floor/unit and/or counseling patient: Internal Medicine: Result - Labs CBC & Chem 7: 01/27/19 04:08 01/27/19 04:08 Labs: Short CBC 01/27/19 Range/Units 04:08 WBC 10.2 (4.3-11.1) K/mcL Hgb 10.1 L D (12.9-16.9) g/dL Hct 29.8 L (37.5-50.1) % Plt Count 190 (140-400) K/mcL Neutrophils # 8.0 (1.6-8.9) K/mcL BMP 01/26/19 01/27/19 10:29 04:08 Sodium 136 137 Potassium 4.2 4.1 Chloride 101 104 Carbon Dioxide 24 23 BUN 19 19 Creatinine 1.16 1.24 Glucose 119 H 117 H Calcium 9.3 8.9 Urine 01/26/19 Range/Units 10:45 Urine Color Yellow (Yellow) Urine Clarity Cloudy A (Clear) Urine pH 7.5 (5.0-8.0) pH Units Ur Specific [place] < 1.005 L (1.010-1.025) Urine Protein >=300 H (Neg-Trace) mg/dL Urine Glucose (UA) Normal (Normal) mg/dL - Impressions Impressions Chest X-Ray 01/26/19 09:49 IMPRESSION: No acute process. D/ / Ambar Du MD / Ambar Du MD Interpreting Provider: Ambar Du MD Head CT 01/26/19 11:58 IMPRESSION: Mild subcortical white matter hypoattenuation in the right frontal lobe which could represent small vessel ischemic disease, though consider MRI for further evaluation given history of seizure and malignancy. D/ / Willie Worley MD / Willie Worley MD Interpreting Provider: Willie Worley MD Brain MRI 01/26/19 13:23 IMPRESSION: No evidence of intracranial metastatic disease. Mild scattered foci of T2 white matter signal abnormality, a common finding of dubious clinical significance. Thin diffuse dural enhancement, a nonspecific finding that can be related to intracranial hypotension, recent lumbar puncture, other etiologies. D/ / Jose Maria Dickson MD / Jose Maria Dickson MD Interpreting Provider: Jose Maria Dickson MD Consult Discharge Plan - Plan Referrals: Sammy Guan MD [Primary Care Provider] - (Per Dr. Ying Office the patient has to make their own appointment) (2) Bladder cancer Qualifiers: Bladder location: unspecified site Qualified Code(s): C67.9 - Malignant neoplasm of bladder, unspecified
--- NOTE | 2019-01-27 12:02 | Oncology Inp Consult Note ---
<Mandy Snider S - Last Filed: 01/27/19 15:54> Date of Encounter: 01/27/19 - Data of Consult Requesting Physician: Alba Case Primary Care Provider: Sammy Guan MD Medications and Allergies Acetaminophen/Diphenhydramine [Eql Acetaminophen Pm Gelcap] 1 tab PO HS PRN 01/03/19 [History] Lisinopril-HCTZ 10-12.5 [Prinzide 10-12.5] 1 tab PO HS 01/18/19 [History] OxyCODONE/APAP 5/325 [Percocet 5/325 MG] 1 tab PO Q8H PRN 01/18/19 [History] Docusate [Colace] 100 mg PO HS 01/25/19 [History] Oxybutynin [Ditropan] 5 mg PO HS 01/25/19 [History] Tamsulosin [Flomax] 0.4 mg PO HS 01/25/19 [History] Allergy/AdvReac Type Severity Reaction Status Date / Time No Known Allergies Allergy Verified 01/27/19 09:01 Consult Discharge Plan - Plan Referrals: Sammy Guan MD [Primary Care Provider] - (Per Dr. Ying Office the patient has to make their own appointment) Inpatient Charges Provider: Dr. Joshua Snider Consult - Inpatient: [id number] - Attending Attestation I examined this patient and my medical decision-making was reviewed with the Advanced Practice Nurse. I agree with the documented findings, disposition and treatment plan as described except to the extent set forth below. 1. Muscle invasive urothelial cancer from bladder. CT T2, N0 high-grade. Muscularis propria involvement 2. Acute kidney failure with creatinine then up to 8. He initially had bilateral double-J stent placement 12/21/2018. He had bilateral percutaneous ne phrostomy tube placement 01/04/2019. Creatinine improved from 8-1.3 range now 3. Possible seizure with postictal. Status. MRI brain with and without contrast on 01/26/2019 showed thin diffuse dural enhancement, a nonspecific finding that can be related to intracranial hypotension, recent lumbar puncture. Neurology consult noted. EEG normal. Patient has not started any treatment yet. He sees Dr. Cerda in the cancer center. Plan is to give 4 cycles of Gemzar with cisplatin neoadjuvant chemotherapy followed by evaluation for cystectomy. To complete staging will proceed with CT chest without contrast. May consider bone scan if necessary 4. Mild anemia hemoglobin currently 10.1 and we will continue to watch the <Lauren Givens - Last Filed: 01/27/19 17:40> Date of Encounter: 01/27/19 Time of Encounter: 10:50 Assessment and Plan (1) Status: Acute Assessment and plan: cT2N0 high grade, invasive urothelial carcinoma. Muscularis propria present and involved. s/p TURBT Has not started chemotherapy yet. Planning for neoadjuvant gemcitabine and cisplatin Patient was due for staging scans. CT chest without contrast ordered. Treatment held pending work-up. Patient to follow up with Dr. Cerda as an outpatient to begin treatment (scheduled 01/30/19). Qualifiers: Bladder location: unspecified site Qualified Code(s): C67.9 - Malignant neoplasm of bladder, unspecified - Data of Consult Patient: known to practice within the last 3 years Requesting Physician: Alba Case Primary Care Provider: Sammy Guan MD - Consult Narrative Reason for consult: bladder cancer History of present illness: Mr. Morgan Meredith is a 69 yo male recently diagnosed with high-grade, invasive urothelial carcinoma with involvment into the muscularis propria. He is s/p TURBT with Dr. Ahuja. He also had bilateral nephrostomy tubes placed 12/21/18. He notes a 10-15 lbs weight loss over a few months and occasional dysuria. Mr. Meredith states that he was supposed to have a port placed for his chemotherapy treatments yesterday and was told that it looked like he had an infection and should report to the Emergency Department. Discussed events in the ED that included antibiotic administration and being found unresponsive. Patient denies recollection of any events in the ED, but verbalized that he was told by staff members that they believe he had a seizure. Oncology history: cT2N0 high grade, invasive urothelial carcinoma. Muscularis propria present and involved. s/p TURBT Has not started chemotherapy yet. Planning for neoadjuvant gemcitabine and cisplatin Review of systems: Denies headache or vision changes. Denies nausea, vomiting, diarrhea, or abdominal pain. + constipation and decreased appetite. Denies weakness or fatigue. C/o bladder discomfort Denies previous seizure history. Denies neuropathy. Medical history: HTN, hepatic steatosis, mild prostatomegaly. Social history: Lives with in [place], [place] 3 children that live locally. Denies smoking/tobacco history. Drinks 2 alcoholic beverages twice a week. Denies illicit drug use. Past Med Surg Social Fam HX - Past Medical History Medical history: cancer, hypertension Additional medical history: bladder cancer, BPH Psychiatric history: no psych history - Past Surgical History Surgical History: appendectomy Additional surgical history: stents from kidney to bladder, bilat nephrostomy bags - Social History Smoking Status: Never smoker Smokeless Tobacco Status: No Alcohol use: none Drug use: none - Family History Mother Hx Family Cardiac Disorders: Yes (hypertension ) Oncology - Exam - Constitutional General appearance: cooperative - Head Head exam: Present: normal inspection, normocephalic - Respiratory Respiratory exam: Present: decreased breath sounds, CTAB - Cardiovascular Cardiovascular exam: Present: RRR, +S1, +S2 - GI/Abdominal GI/Abdominal exam: Present: normal bowel sounds, soft Additional comments: bilateral nephrostomy tubes draining clear, yellow urine. - Extremities Exam Extremities exam: Present: normal capillary refill, normal inspection - Neurological Exam Neurological exam: Present: alert, oriented X3. Absent: facial droop, speech deficit - Psychiatric Psychiatric exam: Present: normal affect, normal mood Inpatient Charges Provider: Dr. Joshua Snider
[2019-01-27] MEDS: Melatonin 3 MG TABLET PO SCH (20:57)
[2019-01-28] MEDS: *HR* OxyCODONE/APAP 5/325 TABLET PO PRN (00:01)
[2019-01-28] MEDS: Piperacillin/Tazobactam 3.375 GM in 0.9 % Sodium Chloride Mini Bag 100 ML IVPB SCH ×2 (03:01→07:54)
[2019-01-28] MEDS: amLODIPine 5 MG TABLET PO SCH (08:51)
[2019-01-28] MEDS ORDERED: Piperacillin/Tazobactam 3.375 GM in 0.9 % Sodium Chloride Mini Bag 100 ML IVPB SCH (11:00)
[2019-01-28 11:33] VITALS: BP 104/74
--- NOTE | 2019-01-28 12:09 | Discharge Summary ---
Orders not resulted at time of discharge: Pending orders 01/26/19 09:49 ECG 12 lead ECG [ECG] Stat 01/26/19 10:29 Culture,Blood [BC] Stat Date of Encounter: 01/28/19 Time of Encounter: 15:00 - Discharge Diagnosis (1) Sepsis associated hypotension Priority: Primary Status: Acute Assessment and Plan: a 69 year old male with pmh of bladder cancer s/p bilateral nephrostomy tubes for acute renal failure. He was scheduled to start on chemotherapy for bladder cancer and was supposed to have a port placed. But apparently his WBC was elevated at 15 and he was sent to the ER. He denies any acute complaints otherwise. In the ER, he was given one dose of ceftriaxone and as soon as the medication was started, he had seizure like activity that lasted a couple of seconds. The medication was stopped and neuro was consulted. HE had an EEG done and an MRI is pending. He was also hypotensive inn the ER Pt comes in with leukocytosis and was hypotensive in the ER . Likely secondary to UTI sepsis. Urine cultures grew e. faecalis and klebsiella. He is going home on a course of cefdinir and macrobid. HE was seen by neuro for his seizure like activity and they have deemed antiepileptic drugs are not indicated. WIth a sooner than anticipated recovery, he was discharged in a stable condition. 35 minutes was spent discharging this patient (2) Bladder cancer Priority: Primary Status: Acute Qualifiers: Bladder location: unspecified site Qualified Code(s): C67.9 - Malignant neoplasm of bladder, unspecified (3) Seizure-like activity Priority: Primary Status: Acute (4) DVT prophylaxis Priority: Primary Status: Acute Hospital course: Mr. Meredith is a 69 year old male - Time Spent with Patient Total time spent providing and/or coordinating discharge services: - Discharge Medications Prescriptions: New Nitrofurantoin (BID) [Macrobid] 100 mg PO BID 5 Days #10 capsule Cefdinir [Omnicef] 300 mg PO BID #10 capsule Continued Doxazosin [Cardura] 4 mg PO HS Acetaminophen/Diphenhydramine [Eql Acetaminophen Pm Gelcap] 1 tab PO HS PRN PRN Reason: Sleep OxyCODONE/APAP 5/325 [Percocet 5/325 MG] 1 tab PO Q8H PRN PRN Reason: Pain Lisinopril-HCTZ 10-12.5 [Prinzide 10-12.5] 1 tab PO HS Oxybutynin [Ditropan] 5 mg PO HS Docusate [Colace] 100 mg PO HS Tamsulosin [Flomax] 0.4 mg PO HS Amlodipine Besylate 5 mg PO HS Home Medications: Doxazosin [Cardura] 4 mg PO HS 12/20/18 [History] Acetaminophen/Diphenhydramine [Eql Acetaminophen Pm Gelcap] 1 tab PO HS PRN 01/03/19 [History] Lisinopril-HCTZ 10-12.5 [Prinzide 10-12.5] 1 tab PO HS 01/18/19 [History] OxyCODONE/APAP 5/325 [Percocet 5/325 MG] 1 tab PO Q8H PRN 01/18/19 [History] Docusate [Colace] 100 mg PO HS 01/25/19 [History] Oxybutynin [Ditropan] 5 mg PO HS 01/25/19 [History] Tamsulosin [Flomax] 0.4 mg PO HS 01/25/19 [History] Amlodipine Besylate 5 mg PO HS 01/27/19 [History] Cefdinir [Omnicef] 300 mg PO BID #10 capsule 01/28/19 [Rx] Nitrofurantoin (BID) [Macrobid] 100 mg PO BID 5 Days #10 capsule 01/28/19 [Rx] Allergies/Adverse Reactions: Allergy/AdvReac Type Severity Reaction Status Date / Time No Known Allergies Allergy Verified 01/27/19 09:01 Date of admission: 01/26/19 16:35 Primary care physician: Sammy Guan MD Consults: 01/26/19 13:14 Consult to Oncology Hematology [CONS] Stat Consulting Provider: Josh España Reason for Consult: Seizure, unresponsive Time Notified: 13:15 Call Completed: Yes 01/26/19 13:15 Consult to Neurology [CONS] Stat Consulting Provider: [facility] Reason for Consult: Seizure, unresponsive, hypotension Time Notified: 13:16 Call Completed: Yes 01/26/19 16:56 Consult to Interpret Exam [CONS] Routine Consulting Provider: Sheree Kong Consult to Interpret Exam: Interpret EEG - Constitutional Vitals: Temp Pulse Resp BP Pulse Ox 97.6 F 92 18 104/74 97 01/28/19 11:27 01/28/19 11:58 01/28/19 11:27 01/28/19 11:27 01/28/19 11:27 Exam: Bilateral nephrostomy tubes in place General appearance: Present: A&O X 3, no acute distress Head exam: Present: normocephalic Respiratory exam: Present: CTAB. Absent: accessory muscle use, rales, rhonchi, wheezes Cardiovascular exam: Present: RRR, +S1, +S2. Absent: diastolic murmur, gallop, rubs, systolic murmur GI/Abdominal exam: Soft, NT, ND, +BS Extremities exam: Absent: pedal edema Neurological exam: Present: alert, oriented X3, no focal deficits. Absent: altered - Patient Status Disposition: Home, Self-Care Condition: Undetermined - Discharge Instructions Follow Up With: Sammy Guan MD [Primary Care Provider] - (Per Dr. Ying Office the patient has to make their own appointment)
== END 2019-01-28 13:40 | disposition home or self-care (01) | DRG 872 ==
LOC: EMEROOARM 09:39 → 2NNU 09:39
PROVIDERS: ADMIT Internal Medicine Nephrology; ATTEND Internal Medicine Nephrology

== ENCOUNTER 2019-02-16 15:37 | Inpatient (IN) ==
[2019-02-16] MEDS ORDERED: 0.9 % Sodium Chloride 1,000 ML IVC ONE ×3 (16:06→20:22)
--- NOTE | 2019-02-16 16:26 | Emergency Department Note ---
Disposition Clinical Impression: Acute kidney injury, Thrombocytopenia Bladder cancer Qualifiers: Bladder location: unspecified site Qualified Code(s): C67.9 - Malignant neoplasm of bladder, unspecified Anemia Qualifiers: Anemia type: unspecified type Qualified Code(s): D64.9 - Anemia, unspecified Urinary tract infection Qualifiers: Urinary tract infection type: site unspecified Hematuria presence: without tahira turia Qualified Code(s): N39.0 - Urinary tract infection, site not specified Sepsis Qualifiers: Sepsis type: sepsis due to unspecified organism Qualified Code(s): A41.9 - Sepsis, unspecified organism Disposition: Admitted As Inpatient Condition: Fair Time of Disposition: 18:14 Recheck wound or abnormal lab - General Chief Complaint: ED Recheck/Abnormal Lab/Rx Stated Complaint: Abnormal labs Time Seen by Provider: 02/16/19 15:41 Source: patient, family Mode of arrival: ambulatory Limitations: no limitations Nursing Notes Reviewed: Yes Vital Signs Reviewed: Yes - History of Present Illness HPI Narrative: 69-year-old male history of bladder cancer presents to the emergency department with abnormal labs. Recently diagnosed several months ago with nephrostomy tubes placed. His 1st chemotherapy treatment was performed over 6 days ago. His 2nd treatment was going to be today however given his presentation they had to hold off. His blood pressure was reportedly 50/30 with the pulse of 130. They said he was too sick to be treated and was sent here for further evaluation. Yesterday they had obtained some labs and today his urine showed evidence of infection. Blood cultures were obtained as well. He received one leader of normal saline prior to arrival here. Since then family member states he appears significantly better. The patient states he feels much better as well. He reportedly had a temperature of 100.3 yesterday over the temporal area. Denies any fever cough but has felt a little short of breath. He has n oticed some decrease urine output today. No sick contacts. Review of his labs shows slightly increased creatinine 1.4 compared to normal baseline after placement of nephrostomy tubes. His sodium is also low at 129. Did not have a leukocytosis. Laboratory Tests 02/15/19 02/15/19 10:03 10:03 WBC 8.6 Hgb 11.5 L Plt Count 156 Sodium 129 L Potassium 4.2 Chloride 94 L Carbon Dioxide 23 BUN 35 H Creatinine 1.45 H Glucose 237 H Total Bilirubin 1.3 H Pt Subjective Complaint: abnormal lab(s) - Related Data Home Medications Medication Instructions Recorded Confirmed Doxazosin [Cardura] 4 mg PO HS 12/20/18 02/16/19 Acetaminophen/Diphenhydramine [Eql 1 tab PO HS PRN 01/03/19 02/16/19 Acetaminophen Pm Gelcap] Lisinopril-HCTZ 10-12.5 [Prinzide 1 tab PO HS 01/18/19 02/16/19 10-12.5] OxyCODONE/APAP 5/325 [Percocet 1 tab PO Q8H PRN 01/18/19 02/16/19 5/325 MG] Docusate [Colace] 100 mg PO HS 01/25/19 02/16/19 Oxybutynin [Ditropan] 5 mg PO HS 01/25/19 02/16/19 Tamsulosin [Flomax] 0.4 mg PO HS 01/25/19 02/16/19 Amlodipine Besylate 5 mg PO HS 01/27/19 02/16/19 Previous Rx's Medication Instructions Recorded Dexamethasone [Decadron] 4 mg PO AD #24 tab 01/31/19 Ondansetron [Zofran ODT] 8 mg SL Q12H PRN #60 tab 01/31/19 Prochlorperazine Maleate 10 mg PO Q6HR PRN #60 tablet 01/31/19 [Compazine] Allergies Allergy/AdvReac Type Severity Reaction Status Date / Time ceftriaxone [From Rocephin] Allergy Seizure Verified 02/10/19 08:29 All systems ED: reviewed and negative except as stated. Review of Systems: As Per HPI Constitutional: Reports: fever, chills ENT ED: Denies: congestion Cardiovascular: Denies: chest pain Respiratory: Reports: dyspnea. Denies: cough Gastrointestinal: Denies: abdominal pain, nausea, vomiting Genitourinary: Denies: dysuria, frequency, hematuria, discharge Musculoskeletal: Denies: back pain Integumentary: Denies: abrasion Neurological: Denies: weakness, confusion Endocrine: Denies: fatigue Past Medical History - Past Medical History Attestation: Yes The following information was validated with the patient. Source: patient Medical history: Reports: cancer, hypertension Surgical history: Reports: appendectomy Psychiatric history: Reports: no psych history - Social History Smoking Status: Never smoker Smokeless Tobacco Status: No Alcohol use: Reports: rarely Drug use: Reports: none Physical Exam - General Limitations: no limitations General appearance: alert, in no apparent distress, other (Pale appearing) - Head Head exam: atraumatic, normocephalic, normal inspection - Eye Eye exam: Present: normal appearance, EOMI - ENT ENT exam: normal exam, normal oropharynx, mucous membranes moist - Neck Neck exam: Present: normal inspection, full ROM, trachea midline - Chest Chest inspection: Present: normal inspection, symmetric chest wall rise - Respiratory Respiratory exam: Present: normal lung sounds bilaterally. Absent: respiratory distress, wheezes - Cardiovascular Cardiovascular exam: Present: normal rhythm, tachycardia, normal heart sounds - Expanded Cardiovascular Exam Peripheral pulses: 2+: radial (R), radial (L) - Abdominal Exam Abdominal exam: Present: soft, Non-Tender, normal bowel sounds. Absent: tenderness, distention, guarding, rebound, rigidity - Rectal Exam Leather Crafter present during exam: Yes Rectal exam: Present: normal inspection, normal rectal tone, heme (-) stool, prostate enlargement. Absent: heme (+) stool, black stool, bloody stool, hemorrhoids - Extremities Exam Extremities exam: Present: normal inspection, full ROM. Absent: tenderness, pedal edema - Back Exam Back exam: Present: full ROM, other (Bilateral nephrostomy tube, no drainage mild erythema, urine output noted in nephrostomy tubes). Absent: tenderness - Neurological Exam Neurological exam: Present: alert, oriented X3 - Psychiatric Psychiatric exam: Present: normal affect, normal mood - Skin Skin exam: Present: warm, dry, intact, pallor. Absent: rash, cyanosis, diaphoresis Course Course Narrative: Patient presents from the oncology center with concern for dehydration urinary tract infection and possible dehydration. Reported fever yesterday with a urinalysis today consistent with infection. Otherwise the patient denies any other complaints. On exam he does appear chronically ill and slightly pale. He is tachycardic afebrile the reports of hypotension at the oncology center. Recheck here shows a systolic of 103. Reports of decrease urine output from the nephrostomy tubes but no concerns for surrounding infection or. When drainage. At this time will check some basic labs including the chest x-ray and a lactate level. Will initiate antibiotic Linezolid given sensitivity from prior cultures. Blood cultures were obtained at the oncology center today. - Reevaluation(s) Reevaluation #1: Patient has a leukocytosis of greater than 12. His hemoglobin also dropped to 8.9 from 11. He denies any G.I. bleed symptoms but does appear pale. Will obtain a type and screen. His stool hemoccult is negative for blood. This could be secondary to his recent chemotherapy treatment. His platelets are also low. His creatinine is slightly increase possibly due to dehydration. Is also reports of decrease urine output which could suggest prerenal as well. During our evaluation he did spike a fever of 101.8 and will treat with Tylenol. He will be admitted for further observation given his fever and immunocompromised state and acute kidney injury. He is agreeable to this plan. Impression is sepsis likely secondary urinary tract infection with history of bladder cancer and nephrostomy tube with acute kidney injury. - Consultations Consultation #1: Spoke with on-call hospitalist steffany Jacob to admit for fever, UTI, hx of bladder cancer, nephrostomy tubes. The hospitalist requests CT scan of the abdomen and pelvis without contrast will follow up with results. Time: 18:08 Vital Signs Temperature 97.7 F 02/16/19 15:44 Pulse Rate 107 02/16/19 15:44 Respiratory Rate 18 02/16/19 15:44 Blood Pressure 87/49 02/16/19 15:44 O2 Sat by Pulse Oximetry 100 02/16/19 15:44 Temperature 99.2 F 02/16/19 23:50 Pulse Rate 94 02/17/19 00:15 Respiratory Rate 16 02/16/19 23:50 Blood Pressure 103/61 02/17/19 00:15 O2 Sat by Pulse Oximetry 100 02/16/19 23:50 Oxygen Delivery Oxygen Delivery Room Air Recheck wound or abnormal lab - MDM Narrative Medical decision making narrative: Patient was discussed with my attending physician who agrees with ED management and final disposition. They independently evaluated the patient. Please refer to their attestation to this encounter for additional information. This note was generated by [employer] voice recognition software and as a result grammatical or spelling errors may occur using this program. - Medical Records Medical records reviewed: Yes I reviewed the patient's medical records. - Lab Data Lab results reviewed: Yes I reviewed the patient's lab results. Result diagrams: 02/16/19 21:27 02/16/19 21:27 Lab Results 02/16/19 02/16/19 02/16/19 Range/Units 16:23 16:23 16:23 WBC 12.3 H (4.3-11.1) K/mcL RBC 2.75 L (4.19-5.50) M/mcL Hgb 8.9 L D (12.9-16.9) g/dL Hct 25.8 L (37.5-50.1) % MCV 93.8 (83.0-100.0) fL MCH 32.4 (28.0-33.3) pg MCHC 34.5 (31.6-35.5) g/dL RDW 13.2 (11.5-14.5) % Plt Count 70 L D (140-400) K/mcL MPV 10.1 (9.4-12.4) fL Reticulocyte # (0.05-0.10) M/mcL Immature Gran % 3.8 (0-4) % Seg Neutrophils % 90.6 % Lymphocytes % 4.2 % Monocytes % 1.2 % Eosinophils % 0.1 % Basophils % 0.1 % Neutrophils # 11.1 H (1.6-8.9) K/mcL Lymphocytes # 0.5 L (0.6-4.6) K/mcL Monocytes # 0.2 (0.0-1.3) K/mcL Eosinophils # 0.0 (0.0-0.6) K/mcL Basophils # 0.0 (0.0-0.2) K/mcL Dohle Bodies Present A (Not Present) Immature Plt Fraction 3.3 (1.1-6.1) % Percent Retic (1.6-2.8) % Immature Retic Fraction (11.0-38.0) % Retic Hgb Equivalent (28.61-36.33) pg Sodium 125 L (136-145) mEq/L Potassium 4.4 (3.5-5.1) mEq/L Chloride 92 L (98-107) mEq/L Carbon Dioxide 21 L (23-29) mEq/L BUN 47 H (8-23) mg/dL Creatinine 2.73 H (0.70-1.30) mg/dL Est GFR ( Amer) 28 L (> 60) Est GFR (Non-Af Amer) 23 L (> 60) BUN/Creatinine Ratio 17 (6-26) Glucose 222 H (70-105) mg/dL Calculated Osmolality 279 L (280-300) Lactic Acid 3.1 H (0.5-2.2) mmol/L Calcium 8.3 L (8.6-10.3) mg/dL Iron (65-175) mcg/dL % Saturation (20-55) % Transferrin (203-362) mg/dL Total Bilirubin (0.3-1.0) mg/dL Direct Bilirubin (0.0-0.2) mg/dL Indirect Bilirubin (0.0-1.2) mg/dL AST (13-39) Units/L ALT (7-52) Units/L Alkaline Phosphatase (34-104) Units/L Lactate Dehydrogenase (140-271) Units/L Serum Total Protein (6.4-8.9) g/dL Albumin (3.5-5.7) g/dL Globulin (2.4-3.5) g/dL Albumin/Globulin Ratio (1.1-2.2) Vitamin B12 (250-1100) pg/mL Folate (3.0-16.0) ng/mL Stool Occult Bld Scrn (Negative) Blood Type Antibody Screen 02/16/19 02/16/19 02/16/19 Range/Units 16:29 17:37 19:06 WBC (4.3-11.1) K/mcL RBC (4.19-5.50) M/mcL Hgb (12.9-16.9) g/dL Hct (37.5-50.1) % MCV (83.0-100.0) fL MCH (28.0-33.3) pg MCHC (31.6-35.5) g/dL RDW (11.5-14.5) % Plt Count (140-400) K/mcL MPV (9.4-12.4) fL Reticulocyte # 0.01 L (0.05-0.10) M/mcL Immature Gran % (0-4) % Seg Neutrophils % % Lymphocytes % % Monocytes % % Eosinophils % % Basophils % % Neutrophils # (1.6-8.9) K/mcL Lymphocytes # (0.6-4.6) K/mcL Monocytes # (0.0-1.3) K/mcL Eosinophils # (0.0-0.6) K/mcL Basophils # (0.0-0.2) K/mcL Dohle Bodies (Not Present) Immature Plt Fraction (1.1-6.1) % Percent Retic 0.3 L (1.6-2.8) % Immature Retic Fraction 2.0 L (11.0-38.0) % Retic Hgb Equivalent 35.9 (28.61-36.33) pg Sodium (136-145) mEq/L Potassium (3.5-5.1) mEq/L Chloride (98-107) mEq/L Carbon Dioxide (23-29) mEq/L BUN (8-23) mg/dL Creatinine (0.70-1.30) mg/dL Est GFR ( Amer) (> 60) Est GFR (Non-Af Amer) (> 60) BUN/Creatinine Ratio (6-26) Glucose (70-105) mg/dL Calculated Osmolality (280-300) Lactic Acid 2.9 H (0.5-2.2) mmol/L Calcium (8.6-10.3) mg/dL Iron (65-175) mcg/dL % Saturation (20-55) % Transferrin (203-362) mg/dL Total Bilirubin (0.3-1.0) mg/dL Direct Bilirubin (0.0-0.2) mg/dL Indirect Bilirubin (0.0-1.2) mg/dL AST (13-39) Units/L ALT (7-52) Units/L Alkaline Phosphatase (34-104) Units/L Lactate Dehydrogenase (140-271) Units/L Serum Total Protein (6.4-8.9) g/dL Albumin (3.5-5.7) g/dL Globulin (2.4-3.5) g/dL Albumin/Globulin Ratio (1.1-2.2) Vitamin B12 (250-1100) pg/mL Folate (3.0-16.0) ng/mL Stool Occult Bld Scrn Negative (Negative) Blood Type Antibody Screen 02/16/19 02/16/19 02/16/19 Range/Units 19:06 19:07 19:07 WBC (4.3-11.1) K/mcL RBC (4.19-5.50) M/mcL Hgb (12.9-16.9) g/dL Hct (37.5-50.1) % MCV (83.0-100.0) fL MCH (28.0-33.3) pg MCHC (31.6-35.5) g/dL RDW (11.5-14.5) % Plt Count (140-400) K/mcL MPV (9.4-12.4) fL Reticulocyte # (0.05-0.10) M/mcL Immature Gran % (0-4) % Seg Neutrophils % % Lymphocytes % % Monocytes % % Eosinophils % % Basophils % % Neutrophils # (1.6-8.9) K/mcL Lymphocytes # (0.6-4.6) K/mcL Monocytes # (0.0-1.3) K/mcL Eosinophils # (0.0-0.6) K/mcL Basophils # (0.0-0.2) K/mcL Dohle Bodies (Not Present) Immature Plt Fraction (1.1-6.1) % Percent Retic (1.6-2.8) % Immature Retic Fraction (11.0-38.0) % Retic Hgb Equivalent (28.61-36.33) pg Sodium (136-145) mEq/L Potassium (3.5-5.1) mEq/L Chloride (98-107) mEq/L Carbon Dioxide (23-29) mEq/L BUN (8-23) mg/dL Creatinine (0.70-1.30) mg/dL Est GFR ( Amer) (> 60) Est GFR (Non-Af Amer) (> 60) BUN/Creatinine Ratio (6-26) Glucose (70-105) mg/dL Calculated Osmolality (280-300) Lactic Acid (0.5-2.2) mmol/L Calcium (8.6-10.3) mg/dL Iron 34 L (65-175) mcg/dL % Saturation 18 L (20-55) % Transferrin 132 L (203-362) mg/dL Total Bilirubin 0.7 (0.3-1.0) mg/dL Direct Bilirubin 0.2 (0.0-0.2) mg/dL Indirect Bilirubin 0.5 (0.0-1.2) mg/dL AST 12 L (13-39) Units/L ALT 13 (7-52) Units/L Alkaline Phosphatase 34 (34-104) Units/L Lactate Dehydrogenase 132 L (140-271) Units/L Serum Total Protein 4.8 L (6.4-8.9) g/dL Albumin 2.9 L (3.5-5.7) g/dL Globulin 1.9 L (2.4-3.5) g/dL Albumin/Globulin Ratio 1.5 (1.1-2.2) Vitamin B12 104 L (250-1100) pg/mL Folate 8.1 (3.0-16.0) ng/mL Stool Occult Bld Scrn (Negative) Blood Type A POSITIVE Antibody Screen NEGATIVE Attestation Statement - Attestation Attestation: I, Tj Kwong, examined this patient and my medical decision-making was reviewed with the BONSAI TENDER/PA/Advanced Practice Nurse/Resident Physician. I agree with the documented findings, disposition and treatment plan as described except to the extent set forth below. 69-year-old male presents emergency Department with concerns of abnormal vital signs and abnormal lab values. Patient is being treated for bladder cancer with chemotherapy. He was scheduled for chemotherapy today however he was hypotensive and tachycardic. Laboratory evaluation showed that he had acute kidney injury and was anemic. He was given a liter of fluids prior to evaluation emergency department. His blood pressure did improve after the liter bolus. Patient states he feels improved however he continues to be mildly tachycardic and hypotensive. He was given another liter bolus in the emergency department and his BP improved to 105 systolic during my reevaluation. He was continued to be mildly tachycardic to 110. Patient is anemic today compared to his laboratory evaluation performed yesterday. He denies recent trauma, denies hematochezia, melena. He also has decreased platelets. He has a history of severe urinary tract infection the past and has urostomy in place bilaterally. I am concerned about possible DIC. He was started on antibiotics in the emergency department according to previous microbiology results. He will be admitted to the hospitalist for further care and evaluation. Rectal exam was negative for occult blood. Vital signs are stable prior to admission.
[2019-02-16 16:36] LABS: Basophils % 0.1 %; Hemoglobin 8.9 g/dL (12.9-16.9); Lymphocytes % 4.2 %; Mean Corpuscular Volume 93.8 fL (83.0-100.0)
[2019-02-16 16:38] LABS: Eosinophils % 0.1 %; Hematocrit 25.8 % (37.5-50.1); Immature Granulocytes % 3.8 % (0-4); Immature Platelets 3.3 % (1.1-6.1); Lymphocytes # 0.5 K/mcL (0.6-4.6); Mean Corpuscular HGB Conc 34.5 g/dL (31.6-35.5); Mean Corpuscular Hemoglobin 32.4 pg (28.0-33.3); Mean Platelet Volume 10.1 fL (9.4-12.4); Monocytes # 0.2 K/mcL (0.0-1.3); Monocytes % 1.2 %; Neutrophils # 11.1 K/mcL (1.6-8.9); Red Blood Count 2.75 M/mcL (4.19-5.50); Red Cell Distribution Width 13.2 % (11.5-14.5); Segmented Neutrophils % 90.6 %; White Blood Count 12.3 K/mcL (4.3-11.1)
[2019-02-16 16:42] LABS: Platelet Count 70 K/mcL (140-400)
[2019-02-16 17:01] LABS: Calcium 8.3 mg/dL (8.6-10.3); Potassium 4.4 mEq/L (3.5-5.1)
[2019-02-16 17:08] LABS: Dohle Bodies Present (Not Present)
[2019-02-16] MEDS ORDERED: Naloxone 0.4 MG/ML INJ IVP PRN (18:10)
[2019-02-16] MEDS ORDERED: Piperacillin/Tazobactam 3.375 GM in 0.9 % Sodium Chloride Mini Bag 100 ML IVPB SCH (18:14)
[2019-02-16] MEDS ORDERED: *HR* OxyCODONE/APAP 5/325 TABLET PO PRN (18:15)
[2019-02-16] MEDS ORDERED: NON-FORMULARY MEDICATION 1 EACH EACH (Ondansetron [Zofran Odt] 8 MG) SL PRN (18:15)
[2019-02-16] MEDS ORDERED: 0.9 % Sodium Chloride 1,000 ML IVC SCH (18:30)
--- NOTE | 2019-02-16 18:43 | Internal Med History&Physical ---
Date of Encounter: 02/16/19 Time of Encounter: 18:00 Internal Medicine - H&P: HPI Chief complaint: fever, not feeling well Admitted From: Home Plans for Post Hospital Care: Home History of present illness: Mr. Meredith is a 69 year old male with history of cT2 N0 high grade, muscle- invasive urothelial carcinoma, s/p TURBT, cystoscopy w/ b/l retrograde pyelograms, and b/l ureteral stent placement on 12/21/18 and nephrostomy tube placement s/p cisplatin and Gemzar cycle 1, day 1 seven days ago., who was recently treated for UTI with On Macrobid and Cefdinir presented the the ED from oncology appointment with fever. as per patient he recently had his chemotherapy 7 days ago, he follows with [facility] oncology. he followed up with oncology today and was supposed to have cycle one today which was held due to fever, hypo tension and tachycardia adn was referred to [facility] ED instead. as per oncology office note, "Patient arrives in clinic today for cycle 1 day of Gemzar. Patient today looks pale, feels dehydrated, has less urinary output in his bilateral nephrostomy tube ask. Patient seems photophobic to light when he first arrived, needing sunglasses. He has a fever 100.3 at home, 99.3 temperature here, heart rate 120, blood pressure 68/40." As per daughter and patient at bedside he was doing well after he received Gemzar and cisplatin 7 days ago however the day before admission he became nauseous and his oral intake decreased and soon after he became pale and felt warm so his temperature was taken at as per daughter was 100.3. They went to their office appointment today to have the first cycle of chemotherapy as he needs to complete 4 cycles prior to having bladder surgery at [facility] but due to abnormal vitals as stated above he was referred to the emergency department for further management. The patient feels much better than he felt at home he denies chest pain, palpitations, shortness of breath, nausea, vomiting or diarrhea. He does report that his output from his nephrostomy tube has decreased only since yesterday and he blames it on poor appetite. He does complain of bilateral back pain at the nephrostomy tube insertions however he reports that it has been there for at least a couple of weeks. He denies discharge from the nephrostomy tube insertions. Had a port placement right chest and denies any bleeding worse pus from the insertion site. He reports that he was treated for a urinary tract infection a couple weeks ago and completed antibiotics. CODE STATUS at bedside and patient wishes to be full code. Daughter at bedside who also agrees with CODE STATUS Past Med Surg Social Fam HX - Past Medical History Medical history: cancer, hypertension Additional medical history: bladder cancer, BPH Psychiatric history: no psych history - Past Surgical History Surgical History: appendectomy Additional surgical history: stents from kidney to bladder, bilat nephrostomy bags - Social History Smoking Status: Never smoker Smokeless Tobacco Status: No Alcohol use: rarely Drug use: none - Family History Mother Hx Family Cardiac Disorders: Yes (hypertension ) Internal Medicine - H&P: Meds Doxazosin [Cardura] 4 mg PO HS 12/20/18 [History] Acetaminophen/Diphenhydramine [Eql Acetaminophen Pm Gelcap] 1 tab PO HS PRN 01/03/19 [History] Lisinopril-HCTZ 10-12.5 [Prinzide 10-12.5] 1 tab PO HS 01/18/19 [History] OxyCODONE/APAP 5/325 [Percocet 5/325 MG] 1 tab PO Q8H PRN 01/18/19 [History] Docusate [Colace] 100 mg PO HS 01/25/19 [History] Oxybutynin [Ditropan] 5 mg PO HS 01/25/19 [History] Tamsulosin [Flomax] 0.4 mg PO HS 01/25/19 [History] Amlodipine Besylate 5 mg PO HS 01/27/19 [History] Dexamethasone [Decadron] 4 mg PO AD #24 tab 01/31/19 [Rx] Ondansetron [Zofran ODT] 8 mg SL Q12H PRN #60 tab 01/31/19 [Rx] Prochlorperazine Maleate [Compazine] 10 mg PO Q6HR PRN #60 tablet 01/31/19 [Rx] Allergy/AdvReac Type Severity Reaction Status Date / Time ceftriaxone [From Rocephin] Allergy Seizure Verified 02/10/19 08:29 All Systems PM: A 10-system review of systems was performed and is negative for pertinent findings except as documented above in the HPI. - Constitutional Vitals: Temp Pulse Resp BP Pulse Ox 101.8 F H 122 18 130/63 98 02/16/19 17:00 02/16/19 18:10 02/16/19 18:10 02/16/19 18:10 02/16/19 18:10 Exam: General: Patient is alert, oriented, in mild distress, pale Head: atraumatic, normocephalic, Eye: normal appearance, PERRL, no scleral icterus, no conjunctival injection ENT: mucous membranes moist, normal external ear exam Neck: normal inspection, trachea midline, full ROM, Chest: normal inspection, symmetric chest rise, has port in the right chest without signs of infection or bleeding Respiratory: Good respiratory effort. Bilateral breath sounds are clear without wheezing, crackles, or rhonchi. Cardiovascular: Tachycardic s1 and s2 No clicks, rubs, gallops, or murmors. Abdomen: Bowel sounds present normoactive x-4 quadrants. Abdomen is soft, nondistended. no Epigastric tenderness. No guarding or rebound. No organomegaly noted, lateral nephrostomy tube, no CVA tenderness. musculoskeletal: Spontaneously moving all extremities. no edema, no calf tenderness Skin: warm, dry, intact. Neuro: Alert and oriented x3 no focal deficit Psych: Patient's affect is normal Internal Med - H&P Results - Labs CBC & Chem 7: 02/16/19 16:23 02/16/19 16:23 Labs: Short CBC 02/16/19 Range/Units 16:23 WBC 12.3 H (4.3-11.1) K/mcL Hgb 8.9 L D (12.9-16.9) g/dL Hct 25.8 L (37.5-50.1) % Plt Count 70 L D (140-400) K/mcL Neutrophils # 11.1 H (1.6-8.9) K/mcL BMP 02/16/19 16:23 Sodium 125 L Potassium 4.4 Chloride 92 L Carbon Dioxide 21 L BUN 47 H Creatinine 2.73 H Glucose 222 H Calcium 8.3 L - EKG Data -: EKG Interpreted by Myself (Admission EKG is pending) - Impressions ITS Impressions Chest X-Ray 02/16/19 16:19 IMPRESSION: No acute pulmonary disease. Calcific atherosclerotic disease aorta. D/ / Anthony Mitchell / Anthony Mitchell Interpreting Provider: Anthony Mitchell - Assessment and Plan (1) Sepsis Current Visit: Yes Status: Acute Assessment and plan: Sepsis secondary to complicated urinary tract infection rule out other etiologies Tachycardic 107, hypotensive 87/49, leukocytosis 12.3 Sepsis protocol activated Received fluid bolus in the ED Continue with maintenance fluids and watch for overload Immunocompromised recently received chemotherapy Was started on linezolid in the ED will continue, added Zosyn ( discussed with pharmacists no interactions or risk of seratonin syndrome with the medications he has received by oncology ) Blood cultures UA and urine culture Lactic acid 3.1 continue to monitor every 3 hours admission EKG pending BP has improved with IV bolus if he becomes hypotensive consider placing central line. case discussed with night team ( will follow CT A/P, electrolytes and BP) CXR:IMPRESSION: No acute pulmonary disease. Calcific atherosclerotic disease aorta. Qualifiers: Sepsis type: sepsis due to unspecified organism Qualified Code(s): A41.9 - Sepsis, unspecified organism (2) Bladder cancer Current Visit: Yes Status: Acute Assessment and plan: cT2 N0 high grade, invasive urothelial carcinoma. Muscularis propria present and involved in specimen. s/p TURBT, cystoscopy w/ b/l retrograde pyelograms, and b/l ureteral stent placement on 12/21/18 S/p b/l nephrostomy tubes on 01/03/19 following admission for renal failure He had both cisplatin and Gemzar cycle 1, day 1 seven days ago. Oncology consulted will follow recommendations Qualifiers: Bladder location: unspecified site Qualified Code(s): C67.9 - Malignant neoplasm of bladder, unspecified (3) ARF (acute renal failure) Current Visit: No Status: Acute Assessment and plan: Q renal failure is most likely secondary to dehydration Received fluid bolus in the emergency department We will continue with normal saline and 125 mL per hour Strict intake and output UA pending CT abdomen and pelvis was ordered in the emergency department will follow If if nephrostomy tubes continued to have poor output or there not positioned correctly on CT abdomen and pelvis consult IR stat Avoid nephrotoxic medications Continue to monitor renal functions closely Qualifiers: Acute renal failure type: unspecified Qualified Code(s): N17.9 - Acute kidney failure, unspecified (4) Bicytopenia Current Visit: Yes Status: Acute Assessment and plan: Thrombocytopenia of 70 Anemia hemoglobin of 8.9 Most likely secondary to chemotherapy Baseline hemoglobin level is 11.5 We will send iron panel, B12, folate, FOBT UA pending Avoid anticoagulation, antiplatelets or NSAIDs Continue to monitor CBC closely ( Q8H) Hematology consulted will follow recommendations type and screen (5) Hyponatremia Current Visit: Yes Status: Acute Assessment and plan: Hypovolemic hyponatremia- secondary to poor oral intake Was treated with normal saline bolus Continue with saline and 125 mL per hour Avoid overcorrection of the sodium TSH, cortisol follow BMP Q4H first one at 8 PM Do cosyntropin test in AM (if hyponatremia doesn't improve) avoid over correction of more than 8 MEQ in 24hrs (6) DVT prophylaxis Current Visit: No Status: Acute Assessment and plan: scds - Time Spent With Patient Total time spent is greater than 50% in coordination of care (as documented) at patient's floor/unit and/or counseling patient: Greater than 35 minutes
[2019-02-16 19:27] LABS: Retculocyte # 0.01 M/mcL (0.05-0.10); Reticulocyte % 0.3 % (1.6-2.8)
[2019-02-16 19:41] LABS: Albumin 2.9 g/dL (3.5-5.7); Albumin/Globulin Ratio 1.5 (1.1-2.2); Bilirubin,Direct 0.2 mg/dL (0.0-0.2); Bilirubin,Indirect 0.5 mg/dL (0.0-1.2); Bilirubin,Total 0.7 mg/dL (0.3-1.0); Globulin 1.9 g/dL (2.4-3.5); Total Protein 4.8 g/dL (6.4-8.9)
[2019-02-16 20:06] LABS: Folate 8.1 ng/mL (3.0-16.0)
[2019-02-16 21:45] LABS: Hemoglobin 7.8 g/dL (12.9-16.9)
[2019-02-16 21:47] LABS: Immature Platelets 3.5 % (1.1-6.1); Mean Corpuscular HGB Conc 35.5 g/dL (31.6-35.5); Mean Corpuscular Hemoglobin 33.2 pg (28.0-33.3); Mean Corpuscular Volume 93.6 fL (83.0-100.0); Mean Platelet Volume 10.8 fL (9.4-12.4); Red Blood Count 2.35 M/mcL (4.19-5.50); Red Cell Distribution Width 13.4 % (11.5-14.5)
[2019-02-16 21:59] LABS: Calcium 7.3 mg/dL (8.6-10.3)
[2019-02-17 01:48] LABS: Calcium 7.7 mg/dL (8.6-10.3); Potassium 4.5 mEq/L (3.5-5.1)
[2019-02-17] MEDS: Piperacillin/Tazobactam 3.375 GM in 0.9 % Sodium Chloride Mini Bag 100 ML IVPB SCH ×3 (05:24→20:20)
[2019-02-17 05:37] LABS: Basophils % 0.1 %; Eosinophils % 0.1 %; Hemoglobin 8.9 g/dL (12.9-16.9); Mean Platelet Volume 10.5 fL (9.4-12.4); Red Cell Distribution Width 13.5 % (11.5-14.5)
[2019-02-17 05:39] LABS: Hematocrit 26.2 % (37.5-50.1); Immature Granulocytes % 1.4 % (0-4); Immature Platelets 3.6 % (1.1-6.1); Lymphocytes # 0.4 K/mcL (0.6-4.6); Lymphocytes % 3.3 %; Mean Corpuscular Hemoglobin 32.6 pg (28.0-33.3); Monocytes # 0.3 K/mcL (0.0-1.3); Monocytes % 2.2 %; Red Blood Count 2.73 M/mcL (4.19-5.50); Segmented Neutrophils % 92.9 %; White Blood Count 11.6 K/mcL (4.3-11.1)
[2019-02-17 05:40] LABS: Neutrophils # 10.8 K/mcL (1.6-8.9); Platelet Count 49 K/mcL (140-400)
[2019-02-17 05:58] LABS: Albumin/Globulin Ratio 1.3 (1.1-2.2); Bilirubin,Direct 0.3 mg/dL (0.0-0.2); Bilirubin,Indirect 0.4 mg/dL (0.0-1.2); Bilirubin,Total 0.7 mg/dL (0.3-1.0); Calcium 8.2 mg/dL (8.6-10.3); Globulin 2.4 g/dL (2.4-3.5); Potassium 4.5 mEq/L (3.5-5.1); Total Protein 5.4 g/dL (6.4-8.9)
[2019-02-17 06:09] LABS: Thyroid Stimulating Hormone 1.356 mcIU/mL (0.340-5.600)
[2019-02-17] MEDS ORDERED: Cyanocobalamin (B-12) 1,000 MCG/ML VIAL IM ONE (07:35)
--- NOTE | 2019-02-17 10:19 | Internal Med Progress Note ---
Hospitalist Progress Note - Encounter Date of Encounter: 02/17/19 Time of Encounter: 08:00 - Subjective Interval History: Patient was seen and examined at bedside. Reports that he feels better than when he came in however he has lost his appetite and has not ate as much as he used to. He reports that he has lost 20 pounds in the past 3 months. He repo rts that food tastes more salty to him. All labs discussed. Currently he denies fever, chills, palpitations, chest pain or shortness of breath. Denies any back pain nor does he have abdominal pain or diarrhea. Nursing staff at bedside plan discussed with patient and nursing staff. - Exam Vitals: Temp Pulse Resp BP Pulse Ox 99.6 F 98 15 119/67 99 02/17/19 07:46 02/17/19 07:46 02/17/19 07:46 02/17/19 07:46 02/17/19 07:46 Exam: General: Patient is alert, oriented, in NAD, pale Head: atraumatic, normocephalic, Eye: normal appearance, PERRL, no scleral icterus, no conjunctival injection ENT: mucous membranes moist, normal external ear exam Neck: normal inspection, trachea midline, full ROM, Chest: normal inspection, symmetric chest rise, has port in the right chest without signs of infection or bleeding Respiratory: Good respiratory effort. Bilateral breath sounds are clear without wheezing, crackles, or rhonchi. Cardiovascular: Tachycardic s1 and s2 No clicks, rubs, gallops, or murmors. Abdomen: Bowel sounds present normoactive x-4 quadrants. Abdomen is soft, nondistended. no Epigastric tenderness. No guarding or rebound. No organomegaly noted, lateral nephrostomy tube, no CVA tenderness. musculoskeletal: Spontaneously moving all extremities. no edema, no calf tenderness Skin: warm, dry, intact. Neuro: Alert and oriented x3 no focal deficit Psych: Patient's affect is normal - Assessment and Plan (1) Severe sepsis Current Visit: Yes Status: Acute Assessment and Plan: Severe Sepsis secondary to complicated urinary tract infection rule out other etiologies Tachycardic 107, hypotensive 87/49, leukocytosis 12.3 Sepsis protocol activated recieved 3 L fluid bolus Continue with maintenance fluids and watch for overload Immunocompromised recently received chemotherapy Was started on linezolid in the ED will continue, added Zosyn ( discussed with pharmacists no interactions or risk of seratonin syndrome with the medications he has received by oncology ) Blood cultures with gram negative mable UA positive and urine culture in process Lactic acid 3.1 trended down to 2.4 infectious disease consulted if he becomes hypotensive consider central line, levophed and transfer to ICU keep MAP >65 CXR:IMPRESSION: No acute pulmonary disease. Calcific atherosclerotic disease aorta. (2) ARF (acute renal failure) Current Visit: No Status: Acute Assessment and Plan: Q renal failure is most likely secondary to dehydration and hypoperfusion from hypotension and severe sepsis Received fluid bolus in the emergency department We will continue with normal saline and 125 mL per hour Strict intake and output creatinine trending down 2.58 to 2.19 Avoid nephrotoxic medications Continue to monitor renal functions closely Ct A/P No evidence of hydronephrosis. Small amounts of gas within both upper urinary collecting systems presumably introduced during nephrostomy tube flushing. However, on the basis of this exam cannot entirely exclude infectious etiology. Correlation with urine cultures is advised. Redemonstration of marked circumferential wall thickening involving the urinary bladder. (3) Bladder cancer Current Visit: Yes Status: Acute Assessment and Plan: cT2 N0 high grade, invasive urothelial carcinoma. Muscularis propria present and involved in specimen. s/p TURBT, cystoscopy w/ b/l retrograde pyelograms, and b/l ureteral stent placement on 12/21/18 S/p b/l nephrostomy tubes on 01/03/19 following admission for renal failure He had both cisplatin and Gemzar cycle 1, day 1 seven days ago. Oncology consulted will follow recommendations (4) Bicytopenia Current Visit: Yes Status: Acute Assessment and Plan: Thrombocytopenia of 70 trended down to 49 Anemia hemoglobin of 8.9 Most likely secondary to chemotherapy Baseline hemoglobin level is 11.5 Avoid anticoagulation, antiplatelets or NSAIDs Continue to monitor CBC closely Hematology consulted will follow recommendations type and screen on file iron panel reviewed - started on iron replacement B12- replaced folate- folic acid 1 mg daily (5) Hyponatremia Current Visit: Yes Status: Acute Assessment and Plan: Hypovolemic hyponatremia- secondary to poor oral intake Was treated with normal saline bolus was 125 on admission now 133 and was started on half NS to avoid over correction. Avoid overcorrection of the sodium TSH and cortisol WNL avoid over correction of more than 8 MEQ in 24hrs (6) B12 deficiency Current Visit: Yes Status: Acute Assessment and Plan: started on replacement (7) Unintended weight loss Current Visit: Yes Status: Acute Assessment and Plan: 20 pound weight loss since october most likely secondary to bladder cancer nutrition consulted (8) DVT prophylaxis Current Visit: No Status: Acute Assessment and Plan: scds - Time Spent with Patient Total time spent is greater than 50% in coordination of care (as documented) at patient's floor/unit and/or counseling patient: 25 - 35 minutes Plan of Care Discussed with: patient Internal Medicine: Result - Labs CBC & Chem 7: 02/17/19 05:10 02/17/19 05:10 Labs: Short CBC 02/16/19 02/16/19 02/17/19 Range/Units 16:23 21:27 05:10 WBC 12.3 H 11.0 11.6 H (4.3-11.1) K/mcL Hgb 8.9 L D 7.8 L 8.9 L (12.9-16.9) g/dL Hct 25.8 L 22.0 L 26.2 L (37.5-50.1) % Plt Count 70 L D 49 L 49 L (140-400) K/mcL Neutrophils # 11.1 H 10.8 H (1.6-8.9) K/mcL BMP 02/16/19 02/16/19 02/17/19 16:23 21:27 01:10 Sodium 125 L 128 L 131 L Potassium 4.4 4.0 4.5 Chloride 92 L 99 101 Carbon Dioxide 21 L 18 L 19 L BUN 47 H 44 H 42 H Creatinine 2.73 H 2.58 H 2.41 H Glucose 222 H 198 H 209 H Calcium 8.3 L 7.3 L 7.7 L 02/17/19 05:10 Sodium 133 L Potassium 4.5 Chloride 104 Carbon Dioxide 19 L BUN 37 H Creatinine 2.19 H Glucose 149 H Calcium 8.2 L Liver Function 02/16/19 02/17/19 Range/Units 19:07 05:10 Total Bilirubin 0.7 0.7 (0.3-1.0) mg/dL Direct Bilirubin 0.2 0.3 H (0.0-0.2) mg/dL AST 12 L 13 (13-39) Units/L ALT 13 15 (7-52) Units/L Alkaline Phosphatase 34 45 (34-104) Units/L Albumin 2.9 L 3.0 L (3.5-5.7) g/dL - Impressions Impressions Chest X-Ray 02/16/19 16:19 IMPRESSION: No acute pulmonary disease. Calcific atherosclerotic disease aorta. D/ / Anthony Mitchell / Anthony Mitchell Interpreting Provider: Anthony Mitchell Abdomen/Pelvis CT 02/16/19 18:01 IMPRESSION: No evidence of hydronephrosis. Small amounts of gas within both upper urinary collecting systems presumably introduced during nephrostomy tube flushing. However, on the basis of this exam cannot entirely exclude infectious etiology. Correlation with urine cultures is advised. Redemonstration of marked circumferential wall thickening involving the urinary bladder. D/ / Vicente Mares / Vicente Mares Interpreting Provider: Vicente Mares Consult Discharge Plan - Plan Referrals: Sammy Guan MD [Primary Care Provider] - (2) ARF (acute renal failure) Qualifiers: Acute renal failure type: unspecified Qualified Code(s): N17.9 - Acute kidney failure, unspecified (3) Bladder cancer Qualifiers: Bladder location: unspecified site Qualified Code(s): C67.9 - Malignant neoplasm of bladder, unspecified
--- NOTE | 2019-02-17 15:37 | Infectious Disease Consult ---
Infectious Disease-Consult - Encounter Date/Time Date of Encounter: 02/17/19 Time of Encounter: 15:33 - Data of Consult Patient: new to practice Reason for consult: Sepsis secondary to complicated UTI immunocompromised. Consult date: 02/17/19 Requesting Physician: Alba Case Primary Care Provider: Sammy Guan MD - HPI HPI: Patient is a 69-year-old gentleman who presented to [facility] from home on 9 with fevers and not feeling well. We are consult treated for complicated UTI sepsis and concern for pyelonephritis. Patient is a 69-year-old gentleman who was recently diagnosed with cT2 N0 high grade, muscle-invasive urothelial carcinoma, s/p TURBT, cystoscopy w/ b/l retrograde pyelograms, and b/l ureteral stent placement on 12/21/18 and nephrostomy tube placement s/p cisplatin and Gemzar cycle 1, day 1 seven days ago. Was recently evaluated and was noted to have UTI on 01/26/2019 with ampicillin sensitive enterococcus faecalis and klebsiella oxytoca pansensitive. Patient apparently was discharged on Omnicef on nitrofurantoin even though his records state that he is allergic to ceftriaxone. Patient was supposed to have his second chemotherapy session at the cancer center apparently patient was not feeling well and was sent to the emergency department for evaluation. Since admission, patient's MAXIMUM TEMPERATURE was 101.8 Fahrenheit. Patient has also been tachycardic with a heart rate as high as 122. Presenting labs revealed a WBC of 11.6 with 93% neutrophils. BUN of 42 creatinine of 2.41 and lactic acidosis of 3.1. No cultures from peripheral and port were both positive for gram-negative mable and PCR has been stopped Klebsiella pneumoniae. Time to positivity is not clear an occult microbiology but they are gone for the day so we will check up on that Wednesday. Currently patient laying in bed. He appears distraught. Appears to be emotionally depressed. Denies any headache no chest pain he denies any sinus pressure no sore throat denies any toothache or abscess. His tongue is black but he just ate Oreos. Denies any neck pain no chest pain or shortness of breath denies any abdominal pain no nausea no vomiting no diarrhea. He has nephrostomy tubes both sides and he denies any pain around them. Denies any other symptoms. - ROS Review of Systems: 10 point review of systems done, negative other for what mentioned in the history of present illness - Results CBC & Chem 7: 02/17/19 05:10 02/17/19 05:10 - Exam Vitals: Temp Pulse Resp BP Pulse Ox 99.4 F 104 16 132/74 99 02/17/19 11:05 02/17/19 11:05 02/17/19 11:05 02/17/19 11:05 02/17/19 11:05 Exam: GENERAL: Laying in bed, appears comfortable. HEAD: Normocephalic atraumatic EYES: PERRLA, EOMI, no conjunctival hemorrhage, sclera anicteric ENT: Mucous membranes moist, no oral thrush NECK: Supple. No meningeal signs. No masses LUNGS: Chest expanding symmetrically. Lungs sounds audible both lung [place]. No wheezing, no rhonchi CV: RRR, S1S2, ABDOMEN: Soft, nontender, nondistended. Bowel sounds audible BACK: No CVA tenderness. Normal inspection. No tenderness over the spine EXTREMITY: Adequate perfusion. No joint effusion. SKIN: Normal color. No rash. NEURO: Awake alert oriented 3. No obvious focal deficit PSYCH: Calm and appropriate. No agitation. Doxazosin [Cardura] 4 mg PO HS 12/20/18 [History] Acetaminophen/Diphenhydramine [Eql Acetaminophen Pm Gelcap] 1 tab PO HS PRN 01/03/19 [History] Lisinopril-HCTZ 10-12.5 [Prinzide 10-12.5] 1 tab PO HS 01/18/19 [History] OxyCODONE/APAP 5/325 [Percocet 5/325 MG] 1 tab PO Q8H PRN 01/18/19 [History] Docusate [Colace] 100 mg PO HS 01/25/19 [History] Oxybutynin [Ditropan] 5 mg PO HS 01/25/19 [History] Tamsulosin [Flomax] 0.4 mg PO HS 01/25/19 [History] Amlodipine Besylate 5 mg PO HS 01/27/19 [History] Dexamethasone [Decadron] 4 mg PO AD #24 tab 01/31/19 [Rx] Ondansetron [Zofran ODT] 8 mg SL Q12H PRN #60 tab 01/31/19 [Rx] Prochlorperazine Maleate [Compazine] 10 mg PO Q6HR PRN #60 tablet 01/31/19 [Rx] Allergy/AdvReac Type Severity Reaction Status Date / Time ceftriaxone [From Rocephin] Allergy Seizure Verified 02/10/19 08:29 - Assessment and Plan (1) Severe sepsis Current Visit: Yes Status: Acute Patient had severe sepsis with 3 SIRS criteria and lactic acidosis on admission Secondary to urosepsis SNOMED Code(s): 20689083 (2) Urinary tract infection Current Visit: Yes Status: Acute patient has bilateral urostomy tubes Qualifiers: Urinary tract infection type: site unspecified Hematuria presence: without hematuria Qualified Code(s): N39.0 - Urinary tract infection, site not specified SNOMED Code(s): 09124733 (3) Bacteremia due to Gram-negative bacteria Current Visit: Yes Status: Acute Blood cultures 2/2 sets positive for gram-negative rods one from the peripheral and one from the chest port on the right side Time 2 positivity is not clear yet Not sure if this is a central line associated bloodstream infection or urosepsis Patient is already on Zosyn Previous culture were Klebsiella oxytoca and Enterococcus faecalis ampicillin sensitive and now PCR revealed Klebsiella pneumoniae so Zosyn should work For now repeat blood cultures 2 peripheral Will call microbiology and find out if time to positivity of the port was at least 120 minutes prior to that time to positivity of the peripheral to make a CLABSI diagnosis Continue Zosyn for now dose adjust based on the creatinine clearance Will tailor antibiotics once cultures finalize Monitor labs and for drug toxicity SNOMED Code(s): 695255888475 (4) Immunosuppressed due to chemotherapy Current Visit: Yes Status: Acute SNOMED Code(s): 753583458 (5) AMISHA (acute kidney injury) Current Visit: Yes Status: Acute Likely multifactorial to post renal obstruction and severe sepsis SNOMED Code(s): 45484876, [id number] (6) Bladder cancer Current Visit: Yes Status: Acute cT2 N0 high grade, invasive urothelial carcinoma. Muscularis propria present and involved in specimen. s/p TURBT, cystoscopy w/ b/l retrograde pyelograms, and b/l ureteral stent placement on 12/21/18 S/p b/l nephrostomy tubes on 5/14/19 following admission for renal failure cisplatin gemcitabine day 1 a week ago hospitalized with symptoms of pyelonephritis. Qualifiers: Bladder location: unspecified site Qualified Code(s): C67.9 - Malignant neoplasm of bladder, unspecified SNOMED Code(s): 898716203 Past Med Surg Social Fam HX - Past Medical History Medical history: cancer, hypertension Additional medical history: bladder cancer, BPH Psychiatric history: no psych history - Past Surgical History Surgical History: appendectomy Additional surgical history: stents from kidney to bladder, bilat nephrostomy bags - Social History Smoking Status: Never smoker Smokeless Tobacco Status: No Alcohol use: rarely Drug use: none - Family History Mother Hx Family Cardiac Disorders: Yes (hypertension ) Consult Discharge Plan - Plan Referrals: Sammy Guan MD [Primary Care Provider] -
--- NOTE | 2019-02-17 16:33 | Oncology Inp Consult Note ---
Date of Encounter: 02/17/19 Time of Encounter: 16:00 Assessment and Plan (1) Bladder cancer Status: Acute Assessment and plan: Patient with high-grade invasive urothelial carcinoma, status post cystoscopy and transurethral resection of bladder tumor, clinical T2 N0, undergoing neoadjuvant chemotherapy possibly by surgery after completion. He underwent cisplatin gemcitabine day 1 a week ago hospitalized with symptoms of pyelonephritis. Continue IV antibiotics. He is non-neutropenic. s/p diana nephrostomy tube placement. Fever trending down. Consider Urology/CT evaluation if need to be replaced. Renal insufficiency, prerenal status post cisplatin-based chemotherapy, urinary tract infection, hypotension. Renal function slowly improving. Ct imaging correlation bladder thickening no hydronephrosis/abcess Appreciate ID input Plan of care reviewed with patient bedside. Qualifiers: Bladder location: unspecified site Qualified Code(s): C67.9 - Malignant neoplasm of bladder, unspecified - Data of Consult Requesting Physician: Alba Case Primary Care Provider: Sammy Guan MD - Consult Narrative Reason for consult: Bladder cancer, pyelonephritis History of present illness: 69-year-old male was recently seen in oncology clinic, patient with known high- grade muscle invasive bladder cancer status post transurethral resection of bladder tumor, cystoscopy ureteral stent in December 2018 subsequently nephrostomy tube placement, underwent treatment with cisplatin gemcitabine cycle 1, presented for chemotherapy with Gemzar, patient reported fever at home was pale, tachycardic, hypotensive. He was suspected to have infection and was referred for further evaluation and hospitalization. Patient reports some back discomfort he has felt better since he was hospitalized yesterday. Reports taking outpatient antibiotics and pain medications. Patient was noted to have renal insufficiency secondary to dehydration infection status post IV fluid resuscitation with improvement in blood pressure. Past Med Surg Social Fam HX - Past Medical History Medical history: cancer, hypertension Additional medical history: bladder cancer, BPH Psychiatric history: no psych history - Past Surgical History Surgical History: appendectomy Additional surgical history: stents from kidney to bladder, bilat nephrostomy bags - Social History Smoking Status: Never smoker Smokeless Tobacco Status: No Alcohol use: rarely Drug use: none - Family History Mother Hx Family Cardiac Disorders: Yes (hypertension ) Medications and Allergies Doxazosin [Cardura] 4 mg PO HS 12/20/18 [History] Acetaminophen/Diphenhydramine [Eql Acetaminophen Pm Gelcap] 1 tab PO HS PRN 01/03/19 [History] Lisinopril-HCTZ 10-12.5 [Prinzide 10-12.5] 1 tab PO HS 01/18/19 [History] OxyCODONE/APAP 5/325 [Percocet 5/325 MG] 1 tab PO Q8H PRN 01/18/19 [History] Docusate [Colace] 100 mg PO HS 01/25/19 [History] Oxybutynin [Ditropan] 5 mg PO HS 01/25/19 [History] Tamsulosin [Flomax] 0.4 mg PO HS 01/25/19 [History] Amlodipine Besylate 5 mg PO HS 01/27/19 [History] Dexamethasone [Decadron] 4 mg PO AD #24 tab 01/31/19 [Rx] Ondansetron [Zofran ODT] 8 mg SL Q12H PRN #60 tab 01/31/19 [Rx] Prochlorperazine Maleate [Compazine] 10 mg PO Q6HR PRN #60 tablet 01/31/19 [Rx] Allergy/AdvReac Type Severity Reaction Status Date / Time ceftriaxone [From Rocephin] Allergy Seizure Verified 02/10/19 08:29 Constitutional: Present: fatigue Additional comments: no chest pain, SOB Additional comments: DEnies SOB or cough Additional comments: anorexia Additional comments: stent placement, infection, back pain Musculoskeletal: Present: back pain Additional comments: denies dizziness, headache, mood changes Oncology - Exam - Constitutional General appearance: no acute distress - Head Head exam: Present: atraumatic, normal inspection - Eye Eye exam: Present: sclera anicteric - ENT ENT exam: Present: mucous membranes dry - Neck Neck exam: Present: full ROM - Respiratory Respiratory exam: Present: CTAB - Cardiovascular Cardiovascular exam: Present: +S1, +S2 - GI/Abdominal GI/Abdominal exam: Present: normal bowel sounds, soft - Extremities Exam Extremities exam: Present: normal inspection Additional comments: no edema - Neurological Exam Neurological exam: Present: alert, CN II-XII intact, oriented X3 - Psychiatric Psychiatric exam: Present: normal mood - Skin Skin exam: Present: dry Additional comments: warm Consult Discharge Plan - Plan Referrals: Guan,Sammy Barnhart MD [Primary Care Provider] - Inpatient Charges Provider: Dr. Allison Poole Consult - Inpatient: [id number]
[2019-02-17 20:45] LABS: Potassium 3.7 mEq/L (3.5-5.1)
[2019-02-18] MEDS: Piperacillin/Tazobactam 3.375 GM in 0.9 % Sodium Chloride Mini Bag 100 ML IVPB SCH ×3 (04:16→20:31)
[2019-02-18 04:33] LABS: Mean Corpuscular Hemoglobin 32.9 pg (28.0-33.3)
[2019-02-18 04:35] LABS: Hematocrit 22.9 % (37.5-50.1); Hemoglobin 8.1 g/dL (12.9-16.9); Immature Platelets 3.4 % (1.1-6.1); Mean Corpuscular HGB Conc 35.4 g/dL (31.6-35.5); Mean Corpuscular Volume 93.1 fL (83.0-100.0); Mean Platelet Volume 11.1 fL (9.4-12.4); Red Blood Count 2.46 M/mcL (4.19-5.50); Red Cell Distribution Width 13.4 % (11.5-14.5); White Blood Count 7.6 K/mcL (4.3-11.1)
[2019-02-18 04:53] LABS: Calcium 8.2 mg/dL (8.6-10.3); Potassium 3.6 mEq/L (3.5-5.1)
[2019-02-18] MEDS: Folic Acid 1 MG TABLET PO SCH (07:44)
--- NOTE | 2019-02-18 10:06 | Internal Med Progress Note ---
Hospitalist Progress Note - Encounter Date of Encounter: 02/18/19 Time of Encounter: 08:04 - Subjective Interval History: Patient was seen and examined at bedside. Has no complaints. Denies any pain. Denies fever, chills, nausea, vomiting or diarrhea. He is feeling much better than how he felt on presentation. Discussed blood culture findings with the patient along with recommendations from consultants and he understands. Tolerating by mouth diet. - Exam Vitals: Temp Pulse Resp BP Pulse Ox 98.2 F 90 16 98/73 97 02/18/19 07:33 02/18/19 07:33 02/18/19 07:33 02/18/19 07:33 02/18/19 07:33 Exam: General: Patient is alert, oriented, in NAD, pale Head: atraumatic, normocephalic, Eye: normal appearance, PERRL, no scleral icterus, no conjunctival injection ENT: mucous membranes moist, normal external ear exam Neck: normal inspection, trachea midline, full ROM, Chest: normal inspection, symmetric chest rise, has port in the right chest without signs of infection or bleeding Respiratory: Good respiratory effort. Bilateral breath sounds are clear without wheezing, crackles, or rhonchi. Cardiovascular: Tachycardic s1 and s2 No clicks, rubs, gallops, or murmors. Abdomen: Bowel sounds present normoactive x-4 quadrants. Abdomen is soft, nondistended. no Epigastric tenderness. No guarding or rebound. No organomegaly noted, lateral nephrostomy tube, no CVA tenderness. musculoskeletal: Spontaneously moving all extremities. no edema, no calf tenderness Skin: warm, dry, intact. Neuro: Alert and oriented x3 no focal deficit Psych: Patient's affect is normal - Assessment and Plan (1) Severe sepsis Current Visit: Yes Status: Acute Assessment and Plan: Severe Sepsis secondary to complicated urinary tract infection rule out other etiologies Tachycardic 107, hypotensive 87/49, leukocytosis 12.3 Sepsis protocol activated recieved 3 L fluid bolus Continue with maintenance fluids and watch for overload Immunocompromised recently received chemotherapy Blood cultures with gram negative mable continue with zosyn UA positive, ucx n process Lactic acid 3.1 trended down to 2.4- nursing staff to follow ID recs appreciated if he becomes hypotensive consider central line, levophed and transfer to ICU keep MAP >65 CXR:IMPRESSION: No acute pulmonary disease. Calcific atherosclerotic disease aorta. (2) ARF (acute renal failure) Current Visit: No Status: Acute Assessment and Plan: Q renal failure is most likely secondary to dehydration and hypoperfusion from hypotension and severe sepsis Received fluid bolus in the emergency department We will continue with normal saline and 125 mL per hour Strict intake and output creatinine trending down 2.58 to 1.69 Avoid nephrotoxic medications Continue to monitor renal functions closely Ct A/P No evidence of hydronephrosis. Small amounts of gas within both upper urinary collecting systems presumably introduced during nephrostomy tube flushing. However, on the basis of this exam cannot entirely exclude infectious etiology. Correlation with urine cultures is advised. Redemonstration of marked circumferential wall thickening involving the urinary bladder. (3) Bladder cancer Current Visit: Yes Status: Acute Assessment and Plan: cT2 N0 high grade, invasive urothelial carcinoma. Muscularis propria present and involved in specimen. s/p TURBT, cystoscopy w/ b/l retrograde pyelograms, and b/l ureteral stent placement on 12/21/18 S/p b/l nephrostomy tubes on 01/03/19 following admission for renal failure He had both cisplatin and Gemzar cycle 1, day 1 seven days ago. Oncology recommendationsn appreciated (4) Bicytopenia Current Visit: Yes Status: Acute Assessment and Plan: Thrombocytopenia of 70 trended down to 49 Anemia- hemoglobin of 8.9 has trended down to 8.1 Most likely secondary to chemotherapy along with B12 deficiency and anemia on chronic disease Baseline hemoglobin level is 11.5 Avoid anticoagulation, antiplatelets or NSAIDs Continue to monitor CBC closely Hematology consulted will follow recommendations type and screen on file iron panel reviewed - started on iron replacement B12- replaced folate- folic acid 1 mg daily (5) Hyponatremia Current Visit: Yes Status: Acute Assessment and Plan: Hypovolemic hyponatremia- improved Was treated with normal saline bolus half NS discontinued ( was started to avoid over correction on 02/17/19) - NS restarted on 02/18 Avoid overcorrection of the sodium TSH and cortisol WNL avoid over correction of more than 8 MEQ in 24hrs (6) B12 deficiency Current Visit: Yes Status: Acute Assessment and Plan: started on replacement (7) Unintended weight loss Current Visit: Yes Status: Acute Assessment and Plan: 20 pound weight loss since october most likely secondary to bladder cancer nutrition consulted (8) DVT prophylaxis Current Visit: No Status: Acute Assessment and Plan: scds - Time Spent with Patient Total time spent is greater than 50% in coordination of care (as documented) at patient's floor/unit and/or counseling patient: Internal Medicine: Result - Labs CBC & Chem 7: 02/18/19 04:10 02/18/19 04:10 Labs: Short CBC 02/18/19 Range/Units 04:10 WBC 7.6 (4.3-11.1) K/mcL Hgb 8.1 L (12.9-16.9) g/dL Hct 22.9 L (37.5-50.1) % Plt Count 32 L (140-400) K/mcL BMP 02/17/19 02/18/19 20:10 04:10 Sodium 130 L 132 L Potassium 3.7 3.6 Chloride 101 100 Carbon Dioxide 19 L 21 L BUN 30 H 28 H Creatinine 1.77 H 1.69 H Glucose 217 H 155 H Calcium 8.0 L 8.2 L Consult Discharge Plan - Plan Referrals: Sammy Guan MD [Primary Care Provider] - (2) ARF (acute renal failure) Qualifiers: Acute renal failure type: unspecified Qualified Code(s): N17.9 - Acute kidney failure, unspecified (3) Bladder cancer Qualifiers: Bladder location: unspecified site Qualified Code(s): C67.9 - Malignant neoplasm of bladder, unspecified
[2019-02-18] MEDS: 0.9 % Sodium Chloride 1,000 ML IVC SCH (12:00)
[2019-02-18] MEDS: Acetaminophen 325 MG TABLET PO PRN (21:17)
[2019-02-19] MEDS: 0.9 % Sodium Chloride 1,000 ML IVC SCH ×2 (00:18→12:58)
[2019-02-19] MEDS: Piperacillin/Tazobactam 3.375 GM in 0.9 % Sodium Chloride Mini Bag 100 ML IVPB SCH ×3 (05:25→20:47)
[2019-02-19 06:58] LABS: Hemoglobin 7.9 g/dL (12.9-16.9)
[2019-02-19 07:00] LABS: Hematocrit 22.8 % (37.5-50.1); Immature Platelets 4.8 % (1.1-6.1); Mean Corpuscular HGB Conc 34.6 g/dL (31.6-35.5); Mean Corpuscular Hemoglobin 32.4 pg (28.0-33.3); Mean Corpuscular Volume 93.4 fL (83.0-100.0); Mean Platelet Volume 11.3 fL (9.4-12.4); Red Blood Count 2.44 M/mcL (4.19-5.50); Red Cell Distribution Width 13.6 % (11.5-14.5); White Blood Count 3.9 K/mcL (4.3-11.1)
[2019-02-19 07:18] LABS: Calcium 8.4 mg/dL (8.6-10.3); Potassium 3.6 mEq/L (3.5-5.1)
[2019-02-19] MEDS: Folic Acid 1 MG TABLET PO SCH (07:21)
--- NOTE | 2019-02-19 10:06 | Internal Med Progress Note ---
Hospitalist Progress Note - Encounter Date of Encounter: 02/19/19 Time of Encounter: 08:03 - Subjective Interval History: patient was seen and examined at bedside. eating cereal, reports that he can tolerate foods a little better. denies fever or chills or chest pain or palpitations. denies SOB. his flank pain has improved. has no other complaints. pain is controlled. all questions answered. - Exam Vitals: Temp Pulse Resp BP Pulse Ox 97.9 F 80 18 141/84 98 02/19/19 07:25 02/19/19 07:25 02/19/19 07:25 02/19/19 07:25 02/19/19 07:25 Exam: General: Patient is alert, oriented, in NAD, pale Head: atraumatic, normocephalic, Eye: normal appearance, PERRL, no scleral icterus, no conjunctival injection ENT: mucous membranes moist, normal external ear exam Neck: normal inspection, trachea midline, full ROM, Chest: normal inspection, symmetric chest rise, has port in the right chest without signs of infection or bleeding Respiratory: Good respiratory effort. Bilateral breath sounds are clear without wheezing, crackles, or rhonchi. Cardiovascular: Tachycardic s1 and s2 No clicks, rubs, gallops, or murmors. Abdomen: Bowel sounds present normoactive x-4 quadrants. Abdomen is soft, nondistended. no Epigastric tenderness. No guarding or rebound. No organomegaly noted, lateral nephrostomy tube, no CVA tenderness. musculoskeletal: Spontaneously moving all extremities. no edema, no calf tenderness Skin: warm, dry, intact. Neuro: Alert and oriented x3 no focal deficit Psych: Patient's affect is normal - Assessment and Plan (1) Severe sepsis Current Visit: Yes Status: Acute Assessment and Plan: Severe Sepsis secondary to complicated urinary tract infection rule out other etiologies Tachycardic 107, hypotensive 87/49, leukocytosis 12.3 Sepsis protocol activated recieved 3 L fluid bolus Continue with maintenance fluids and watch for overload Immunocompromised recently received chemotherapy Blood culture from port with klebsiella ?CLABSI peripheral cx ( gram negative mable) continue with zosyn UA positive, ucx klebsiella Lactic acid 3.1 trended down to 2.4- nursing staff to follow ID recs appreciated if he becomes hypotensive consider central line, levophed and transfer to ICU keep MAP >65 CXR:IMPRESSION: No acute pulmonary disease. Calcific atherosclerotic disease aorta. (2) ARF (acute renal failure) Current Visit: No Status: Acute Assessment and Plan: Q renal failure is most likely secondary to dehydration and hypoperfusion from hypotension and severe sepsis Received fluid bolus in the emergency department continue IVF Strict intake and output creatinine trending down 2.58 to 1.55 Avoid nephrotoxic medications Continue to monitor renal functions closely Ct A/P No evidence of hydronephrosis. Small amounts of gas within both upper urinary collecting systems presumably introduced during nephrostomy tube flushing. However, on the basis of this exam cannot entirely exclude infectious etiology. Correlation with urine cultures is advised. Redemonstration of marked circumferential wall thickening involving the urinary bladder. (3) Bladder cancer Current Visit: Yes Status: Acute Assessment and Plan: cT2 N0 high grade, invasive urothelial carcinoma. Muscularis propria present and involved in specimen. s/p TURBT, cystoscopy w/ b/l retrograde pyelograms, and b/l ureteral stent placement on 12/21/18 S/p b/l nephrostomy tubes on 01/03/19 following admission for renal failure He had both cisplatin and Gemzar cycle 1, day 1 seven days ago. Oncology recommendationsn appreciated (4) Bicytopenia Current Visit: Yes Status: Acute Assessment and Plan: Thrombocytopenia of 70 trended down to 49 Anemia- hemoglobin of 8.9 has trended down to 8.1 Most likely secondary to chemotherapy along with B12 deficiency and anemia on chronic disease Baseline hemoglobin level is 11.5 Avoid anticoagulation, antiplatelets or NSAIDs Continue to monitor CBC closely Hematology onboard type and screen on file iron panel reviewed - started on iron replacement B12- replaced folate- folic acid 1 mg daily (5) Hyponatremia Current Visit: Yes Status: Acute Assessment and Plan: Hypovolemic hyponatremia- resolved Was treated with normal saline bolus continue IVF as he continues to have poor oral intake TSH and cortisol WNL (6) B12 deficiency Current Visit: Yes Status: Acute Assessment and Plan: started on replacement (7) Unintended weight loss Current Visit: Yes Status: Acute Assessment and Plan: 20 pound weight loss since october most likely secondary to bladder cancer nutrition consulted (8) DVT prophylaxis Current Visit: No Status: Acute Assessment and Plan: scds - Time Spent with Patient Total time spent is greater than 50% in coordination of care (as documented) at patient's floor/unit and/or counseling patient: Internal Medicine: Result - Labs CBC & Chem 7: 02/19/19 06:47 02/19/19 06:47 Labs: Short CBC 02/19/19 Range/Units 06:47 WBC 3.9 L (4.3-11.1) K/mcL Hgb 7.9 L (12.9-16.9) g/dL Hct 22.8 L (37.5-50.1) % Plt Count 37 L (140-400) K/mcL BMP 02/19/19 06:47 Sodium 138 Potassium 3.6 Chloride 105 Carbon Dioxide 23 BUN 27 H Creatinine 1.55 H Glucose 110 H Calcium 8.4 L Consult Discharge Plan - Plan Referrals: Roge,Sammy Barnhart MD [Primary Care Provider] - (2) ARF (acute renal failure) Qualifiers: Acute renal failure type: unspecified Qualified Code(s): N17.9 - Acute kidney failure, unspecified (3) Bladder cancer Qualifiers: Bladder location: unspecified site Qualified Code(s): C67.9 - Malignant neoplasm of bladder, unspecified
--- NOTE | 2019-02-19 14:49 | Oncology Inp Progress Note ---
Date of Encounter: 02/20/19 Time of Encounter: 12:00 (1) Bladder cancer Current Visit: Yes Status: Acute Assessment and plan: Patient with high-grade invasive urothelial carcinoma, status post cystoscopy and transurethral resection of bladder tumor, clinical T2 N0, undergoing neoadjuvant chemotherapy possibly by surgery after completion. He underwent cisplatin gemcitabine day 1 a week ago hospitalized with symptoms of pyelonephritis. Gm negative sepsis, Klebsiella UC. Consider Urology/CT evaluation if need to be replaced. BP normal, feels improved Renal insufficiency,improving to baseline. Cytopenia-chemotherapy/sepsis, abx Qualifiers: Bladder location: unspecified site Qualified Code(s): C67.9 - Malignant neoplasm of bladder, unspecified Oncology: Subj Interval history: DEnies back pain - Head Head exam: Present: atraumatic, normal inspection - Eye Eye exam: Present: sclera anicteric - Respiratory Respiratory exam: Present: CTAB - Cardiovascular Cardiovascular exam: Present: +S1, +S2 - GI/Abdominal GI/Abdominal exam: Present: soft Additional comments: non tender Oncology: Obj Data - Labs CBC & Chem 7: 02/20/19 04:30 02/20/19 04:30 Consult Discharge Plan - Plan Referrals: Sammy Guan MD [Primary Care Provider] - Inpatient Charges Provider: Dr. Allison Poole Follow up - Inpatient: [id number]
[2019-02-19] MEDS: Acetaminophen 325 MG TABLET PO PRN (20:46)
[2019-02-20] MEDS: 0.9 % Sodium Chloride 1,000 ML IVC SCH ×2 (01:20→14:20)
[2019-02-20] MEDS: Piperacillin/Tazobactam 3.375 GM in 0.9 % Sodium Chloride Mini Bag 100 ML IVPB SCH ×2 (04:34→12:31)
[2019-02-20 04:47] LABS: Red Cell Distribution Width 13.6 % (11.5-14.5)
[2019-02-20 04:48] LABS: Hematocrit 23.7 % (37.5-50.1); Immature Platelets 5.1 % (1.1-6.1); Mean Corpuscular HGB Conc 33.8 g/dL (31.6-35.5); Mean Corpuscular Hemoglobin 32.4 pg (28.0-33.3); Mean Platelet Volume 11.3 fL (9.4-12.4); Red Blood Count 2.47 M/mcL (4.19-5.50); White Blood Count 4.2 K/mcL (4.3-11.1)
[2019-02-20 05:05] LABS: Calcium 8.2 mg/dL (8.6-10.3); Potassium 3.6 mEq/L (3.5-5.1)
[2019-02-20] MEDS: Folic Acid 1 MG TABLET PO SCH (08:31)
--- NOTE | 2019-02-20 11:04 | Internal Med Progress Note ---
Hospitalist Progress Note - Encounter Date of Encounter: 02/20/19 Time of Encounter: 08:00 - Subjective Interval History: Patient was seen and examined at bedside. Is eating breakfast however he does complain of poor appetite. He denies any fever, chills overnight. Feeling much better than on presentation. He has had no palpitations or shortness of breath. Denies any back pain. - Exam Vitals: Temp Pulse Resp BP Pulse Ox 98.8 F 85 16 141/77 96 02/20/19 08:05 02/20/19 08:05 02/20/19 08:05 02/20/19 08:05 02/20/19 08:05 Exam: General: Patient is alert, oriented, in NAD, pale Head: atraumatic, normocephalic, Eye: normal appearance, PERRL, no scleral icterus, no conjunctival injection ENT: mucous membranes moist, normal external ear exam Neck: normal inspection, trachea midline, full ROM, Chest: normal inspection, symmetric chest rise, has port in the right chest without signs of infection or bleeding Respiratory: Good respiratory effort. Bilateral breath sounds are clear without wheezing, crackles, or rhonchi. Cardiovascular: Tachycardic s1 and s2 No clicks, rubs, gallops, or murmors. Abdomen: Bowel sounds present normoactive x-4 quadrants. Abdomen is soft, nondistended. no Epigastric tenderness. No guarding or rebound. No organome peggy noted, lateral nephrostomy tube, no CVA tenderness. musculoskeletal: Spontaneously moving all extremities. no edema, no calf tenderness Skin: warm, dry, intact. Neuro: Alert and oriented x3 no focal deficit Psych: Patient's affect is normal - Assessment and Plan (1) Severe sepsis Current Visit: Yes Status: Acute Assessment and Plan: Severe Sepsis secondary to complicated urinary tract infection Tachycardic 107, hypotensive 87/49, leukocytosis 12.3 Sepsis protocol activated recieved 3 L fluid bolus Continue with maintenance fluids and watch for overload Immunocompromised recently received chemotherapy Blood culture from port with klebsiella ?CLABSI peripheral cx ( gram negative mable) continue with zosyn UA positive, ucx klebsiella Lactic acid 3.1 trended down to 2.4- nursing staff to follow ID recs appreciated keep MAP >65 CXR:IMPRESSION: No acute pulmonary disease. Calcific atherosclerotic disease aorta. (2) ARF (acute renal failure) Current Visit: No Status: Acute Assessment and Plan: acute renal failure is most likely secondary to dehydration and hypoperfusion from hypotension and severe sepsis Received fluid bolus in the emergency department continue IVF Strict intake and output creatinine trending down 2.58 to 1.50 Avoid nephrotoxic medications Continue to monitor renal functions closely Ct A/P No evidence of hydronephrosis. Small amounts of gas within both upper urinary collecting systems presumably introduced during nephrostomy tube flushing. However, on the basis of this exam cannot entirely exclude infectious etiology. Correlation with urine cultures is advised. Redemonstration of marked circumferential wall thickening involving the urinary bladder. (3) Bladder cancer Current Visit: Yes Status: Acute Assessment and Plan: cT2 N0 high grade, invasive urothelial carcinoma. Muscularis propria present a nd involved in specimen. s/p TURBT, cystoscopy w/ b/l retrograde pyelograms, and b/l ureteral stent placement on 12/21/18 S/p b/l nephrostomy tubes on 01/03/19 following admission for renal failure He had both cisplatin and Gemzar cycle 1, day 1 seven days ago. Oncology recommendations appreciated (4) Bicytopenia Current Visit: Yes Status: Acute Assessment and Plan: Thrombocytopenia of 70 trended down to 49 Anemia- hemoglobin of 8.9 has trended down to 8.1 Most likely secondary to chemotherapy along with B12 deficiency and anemia on chronic disease Baseline hemoglobin level is 11.5 Avoid anticoagulation, antiplatelets or NSAIDs Continue to monitor CBC closely Hematology onboard type and screen on file iron panel reviewed - started on iron replacement B12- started replacement folate- folic acid 1 mg daily (5) B12 deficiency Current Visit: Yes Status: Acute Assessment and Plan: started on replacement (6) Unintended weight loss Current Visit: Yes Status: Acute Assessment and Plan: 20 pound weight loss since october most likely secondary to bladder cancer nutrition consulted (7) DVT prophylaxis Current Visit: No Status: Acute Assessment and Plan: scds (8) Hyponatremia Current Visit: Yes Status: Resolved Assessment and Plan: Hypovolemic hyponatremia- resolved Was treated with normal saline bolus continue IVF as he continues to have poor oral intake TSH and cortisol WNL - Time Spent with Patient Total time spent is greater than 50% in coordination of care (as documented) at patient's floor/unit and/or counseling patient: 25 - 35 minutes Plan of Care Discussed with: patient Internal Medicine: Result - Labs CBC & Chem 7: 02/20/19 04:30 02/20/19 04:30 Labs: Short CBC 02/20/19 Range/Units 04:30 WBC 4.2 L (4.3-11.1) K/mcL Hgb 8.0 L (12.9-16.9) g/dL Hct 23.7 L (37.5-50.1) % Plt Count 50 L (140-400) K/mcL BMP 02/20/19 04:30 Sodium 139 Potassium 3.6 Chloride 108 H Carbon Dioxide 24 BUN 23 Creatinine 1.50 H Glucose 105 Calcium 8.2 L Consult Discharge Plan - Plan Referrals: Roge,Sammy Barnhart MD [Primary Care Provider] - (2) ARF (acute renal failure) Qualifiers: Acute renal failure type: unspecified Qualified Code(s): N17.9 - Acute kidney failure, unspecified (3) Bladder cancer Qualifiers: Bladder location: unspecified site Qualified Code(s): C67.9 - Malignant neoplasm of bladder, unspecified
[2019-02-20] MEDS: Cyanocobalamin (B-12) 1,000 MCG TABLET PO SCH (11:42)
--- NOTE | 2019-02-20 14:04 | Infectious Disease Progress No ---
ID Progress Note Date of Encounter: 02/20/19 Time of Encounter: 14:03 - Subjective Subjective: Patient seen and examined. Appears comfortable. Sitting in chair. Denies any headache no chest pain or shortness of breath no nausea no diarrhea no urinary symptoms no CVA tenderness Vital signs: Noted Labs reviewed Cultures 02/16/2019 port culture 2 positivity 9 hours and 48 minutes 02/16/2019 peripheral cultures times positivity 13 minutes and 59 seconds - Objective CBC & Chem 7: 02/20/19 04:30 02/20/19 04:30 - Exam Vitals: Temp Pulse Resp BP Pulse Ox 98.6 F 93 16 112/74 97 02/20/19 12:09 02/20/19 12:09 02/20/19 12:09 02/20/19 12:09 02/20/19 12:09 Exam: GENERAL: Comfortable. Laying in bed NAD HEENT: DILEEP, EOMI LUNGS: Good air sounds bilaterally, no wheezing or rhonchi CV: RRR, S1 S2 ABDOMEN: Soft, nontender, + bowel sounds BACK: urostomy tubes intact both sides EXT: Adequate perfusion. No edema NEURO: A&OX3; no focal deficit - Assessment and Plan (1) Severe sepsis Current Visit: Yes Status: Acute Patient had severe sepsis with 3 SIRS criteria and lactic acidosis on admission Secondary to urosepsis SNOMED Code(s): 22715444 (2) Bacteremia due to Gram-negative bacteria Current Visit: Yes Status: Acute Blood cultures 2/2 sets positive for gram-negative rods (Klebsiella pneumoniae) one from the peripheral and one from the chest port on the right side 02/16/2019 port culture 2 positivity 9 hours and 48 minutes 02/16/2019 peripheral cultures times positivity 13 minutes and 59 seconds Not sure if this is a central line associated bloodstream infection or urosepsis Patient is already on Zosyn Previous culture were Klebsiella oxytoca and Enterococcus faecalis ampicillin sensitive and now PCR revealed Klebsiella pneumoniae so Zosyn should work For now repeat blood cultures 2 peripheral d/w Dr. Mccurdy, will need to remove port if at all possible, if not, then we can try to salvage it d/c zosyn start levofloxacin 750mg IV q24 hours, if CrCrl under 50 we will go to [id number] dosing; d/w Georgi since CrCl is borderling at about 50 duration of treatment 14 days SNOMED Code(s): 354683706941 (3) Urinary tract infection Current Visit: Yes Status: Acute patient has bilateral urostomy tubes Qualifiers: Urinary tract infection type: site unspecified Hematuria presence: without hematuria Qualified Code(s): N39.0 - Urinary tract infection, site not specified SNOMED Code(s): 98687170 (4) Immunosuppressed due to chemotherapy Current Visit: Yes Status: Acute SNOMED Code(s): 278583146 (5) AMISHA (acute kidney injury) Current Visit: Yes Status: Acute Likely multifactorial to post renal obstruction and severe sepsis SNOMED Code(s): 27882063, 72313688 (6) Bladder cancer Current Visit: Yes Status: Acute cT2 N0 high grade, invasive urothelial carcinoma. Muscularis propria present and involved in specimen. s/p TURBT, cystoscopy w/ b/l retrograde pyelograms, and b/l ureteral stent placement on 12/21/18 S/p b/l nephrostomy tubes on 01/03/19 following admission for renal failure cisplatin gemcitabine day 1 a week ago hospitalized with symptoms of pyelon ephritis. Qualifiers: Bladder location: unspecified site Qualified Code(s): C67.9 - Malignant neoplasm of bladder, unspecified SNOMED Code(s): 089187458 Consult Discharge Plan - Plan Referrals: Sammy Guan MD [Primary Care Provider] -
[2019-02-20] MEDS: levoFLOXacin 750 MG/150 ML 750 MG/150 ML BAG IVPB SCH (16:02)
[2019-02-21] MEDS: 0.9 % Sodium Chloride 1,000 ML IVC SCH (02:55)
[2019-02-21 03:23] LABS: Hematocrit 23.6 % (37.5-50.1); Hemoglobin 8.1 g/dL (12.9-16.9); Mean Corpuscular HGB Conc 34.3 g/dL (31.6-35.5); Mean Corpuscular Hemoglobin 32.7 pg (28.0-33.3); Mean Corpuscular Volume 95.2 fL (83.0-100.0); Mean Platelet Volume 11.1 fL (9.4-12.4); Red Blood Count 2.48 M/mcL (4.19-5.50); Red Cell Distribution Width 13.5 % (11.5-14.5); White Blood Count 4.6 K/mcL (4.3-11.1)
[2019-02-21 03:24] LABS: Platelet Count 86 K/mcL (140-400)
[2019-02-21 03:46] LABS: BUN/Creatinine Ratio 15 (6-26); Blood Urea Nitrogen 18 mg/dL (8-23); Calcium 8.2 mg/dL (8.6-10.3); Carbon Dioxide 23 mEq/L (23-29); Chloride 105 mEq/L (98-107); Glucose 164 mg/dL (70-105); Osmolality,Calculated 288 (280-300); Potassium 3.5 mEq/L (3.5-5.1); Sodium 136 mEq/L (136-145); eGFR For African Americans > 60 (> 60); eGFR For Non-African Americans 59 (> 60)
[2019-02-21] MEDS: levoFLOXacin 750 MG/150 ML 750 MG/150 ML BAG IVPB SCH (07:41)
[2019-02-21] MEDS: Cyanocobalamin (B-12) 1,000 MCG TABLET PO SCH (07:41)
[2019-02-21] MEDS: Folic Acid 1 MG TABLET PO SCH (07:41)
--- NOTE | 2019-02-21 15:00 | Internal Med Progress Note ---
Hospitalist Progress Note - Encounter Date of Encounter: 02/21/19 Time of Encounter: 08:00 - Subjective Interval History: Patient was seen and examined at bedside. at bedside and PATIENT'S answered. He denies fever, chills, nausea, vomiting, diarrhea. He is tolerating new antibiotics without any difficulty. He denies any adverse reactions of antibiotics. Is anxious about getting discharge discussed that the port cultures are positive and we will need to infuse antibiotics to the port and that might require him to go to a facility and he is in agreement. I discussed that I will let the case management now. - Exam Vitals: Temp Pulse Resp BP Pulse Ox 98.0 F 90 16 125/88 97 02/21/19 12:02/21/19 12:02/21/19 12:02/21/19 12:02/21/19 12:09 Exam: General: Patient is alert, oriented, in NAD, pale Head: atraumatic, normocephalic, Eye: normal appearance, PERRL, no scleral icterus, no conjunctival injection ENT: mucous membranes moist, normal external ear exam Neck: normal inspection, trachea midline, full ROM, Chest: normal inspection, symmetric chest rise, has port in the right chest without signs of infection or bleeding Respiratory: Good respiratory effort. Bilateral breath sounds are clear without wheezing, crackles, or rhonchi. Cardiovascular: Tachycardic s1 and s2 No clicks, rubs, gallops, or murmors. Abdomen: Bowel sounds present normoactive x-4 quadrants. Abdomen is soft, nondistended. no Epigastric tenderness. No guarding or rebound. No organomegaly noted, lateral nephrostomy tube, no CVA tenderness. musculoskeletal: Spontaneously moving all extremities. no edema, no calf tenderness Skin: warm, dry, intact. Neuro: Alert and oriented x3 no focal deficit Psych: Patient's affect is normal - Assessment and Plan (1) Severe sepsis Current Visit: Yes Status: Acute Assessment and Plan: Severe Sepsis secondary to complicated urinary tract infection Tachycardic 107, hypotensive 87/49, leukocytosis 12.3 Sepsis protocol activated Immunocompromised recently received chemotherapy Blood culture from port with klebsiella peripheral cx ( gram negative mable) Zosyn was changed to IV Levaquin as per ID recommendations to be infused through the port- nursing staff aware Rx for IV Levaquin was given to the case management to continue for total of 14 days UA positive, ucx klebsiella Lactic acid 3.1 trended down to 2.4- nursing staff to follow ID recs appreciated keep MAP >65 CXR:IMPRESSION: No acute pulmonary disease. Calcific atherosclerotic disease aorta. (2) ARF (acute renal failure) Current Visit: No Status: Acute Assessment and Plan: acute renal failure is most likely secondary to dehydration and hypoperfusion from hypotension and severe sepsis - resolved Strict intake and output creatinine trending down 2.58 to 1.50 Avoid nephrotoxic medications Continue to monitor renal functions closely Ct A/P No evidence of hydronephrosis. Small amounts of gas within both upper urinary collecting systems presumably introduced during nephrostomy tube flushing. However, on the basis of this exam cannot entirely exclude infectious etiology. Correlation with urine cultures is advised. Redemonstration of marked circumferential wall thickening involving the urinary bladder. (3) Bladder cancer Current Visit: Yes Status: Acute Assessment and Plan: cT2 N0 high grade, invasive urothelial carcinoma. Muscularis propria present and involved in specimen. s/p TURBT, cystoscopy w/ b/l retrograde pyelograms, and b/l ureteral stent p lacement on 12/21/18 S/p b/l nephrostomy tubes on 01/03/19 following admission for renal failure He had both cisplatin and Gemzar cycle 1, day 1 seven days ago. Oncology recommendations appreciated (4) Bicytopenia Current Visit: Yes Status: Acute Assessment and Plan: Thrombocytopenia of 70 trended down to 49 Anemia- hemoglobin of 8.9 has trended down to 8.1 Most likely secondary to chemotherapy along with B12 deficiency and anemia on chronic disease Baseline hemoglobin level is 11.5 Avoid anticoagulation, antiplatelets or NSAIDs Continue to monitor CBC closely Hematology onboard type and screen on file iron panel reviewed - started on iron replacement B12- started replacement folate- folic acid 1 mg daily (5) B12 deficiency Current Visit: Yes Status: Acute Assessment and Plan: started on replacement (6) Unintended weight loss Current Visit: Yes Status: Acute Assessment and Plan: 20 pound weight loss since october most likely secondary to bladder cancer nutrition consulted (7) DVT prophylaxis Current Visit: No Status: Acute Assessment and Plan: scds (8) Hyponatremia Current Visit: Yes Status: Resolved - Time Spent with Patient Total time spent is greater than 50% in coordination of care (as documented) at patient's floor/unit and/or counseling patient: 25 - 35 minutes Plan of Care Discussed with: patient Internal Medicine: Result - Labs CBC & Chem 7: 02/21/19 03:01 02/21/19 03:01 Labs: Short CBC 02/21/19 Range/Units 03:01 WBC 4.6 (4.3-11.1) K/mcL Hgb 8.1 L (12.9-16.9) g/dL Hct 23.6 L (37.5-50.1) % Plt Count 86 L D (140-400) K/mcL BMP 02/21/19 03:01 Sodium 136 Potassium 3.5 Chloride 105 Carbon Dioxide 23 BUN 18 Creatinine 1.23 Glucose 164 H Calcium 8.2 L Consult Discharge Plan - Plan Referrals: Sammy Guan MD [Primary Care Provider] - Prescriptions: levoFLOXacin 750 MG/150 ML [Levaquin Premix 750mg/150 mL] 750 mg IVPB DAILY 13 Days #13 bag (2) ARF (acute renal failure) Qualifiers: Acute renal failure type: unspecified Qualified Code(s): N17.9 - Acute kidney failure, unspecified (3) Bladder cancer Qualifiers: Bladder location: unspecified site Qualified Code(s): C67.9 - Malignant neoplasm of bladder, unspecified
--- NOTE | 2019-02-21 15:08 | Infectious Disease Progress No ---
ID Progress Note Date of Encounter: 02/21/19 Time of Encounter: 15:08 - Subjective Subjective: Patient seen and examined. Appears comfortable. Sitting in chair. Denies any headache no chest pain or shortness of breath no nausea no diarrhea no urinary symptoms no CVA tenderness. is at bedside. Discussed discharge planning. Vital signs: Noted MAXIMUM TEMPERATURE 99.6 Labs reviewed Cultures 02/16/2019 port culture 2 positivity 9 hours and 48 minutes 02/16/2019 peripheral cultures times positivity 13 minutes and 59 seconds - Objective CBC & Chem 7: 02/21/19 03:01 02/21/19 03:01 - Exam Vitals: Temp Pulse Resp BP Pulse Ox 98.0 F 90 16 125/88 97 02/21/19 12:09 02/21/19 12:09 02/21/19 12:09 02/21/19 12:09 02/21/19 12:09 Exam: GENERAL: Comfortable. Laying in bed NAD HEENT: DILEEP, EOMI LUNGS: Good air sounds bilaterally, no wheezing or rhonchi CV: RRR, S1 S2 ABDOMEN: Soft, nontender, + bowel sounds EXT: Adequate perfusion. No edema NEURO: A&OX3; no focal deficit - Assessment and Plan (1) Severe sepsis Current Visit: Yes Status: Acute Patient had severe sepsis with 3 SIRS criteria and lactic acidosis on admission Secondary to urosepsis SNOMED Code(s): 30529839 (2) Bacteremia due to Gram-negative bacteria Current Visit: Yes Status: Acute Blood cultures 2/2 sets positive for gram-negative rods (Klebsiella pneumoniae) one from the peripheral and one from the chest port on the right side 02/16/2019 port culture 2 positivity 9 hours and 48 minutes 02/16/2019 peripheral cultures times positivity 13 minutes and 59 seconds Not sure if this is a central line associated bloodstream infection or urosepsis Patient is already on Zosyn Previous culture were Klebsiella oxytoca and Enterococcus faecalis ampicillin sensitive and now PCR revealed Klebsiella pneumoniae so Zosyn should work For now repeat blood cultures 2 peripheral d/w Dr. Mccurdy, will need to remove port if at all possible, if not, then we can try to salvage it d/c zosyn Continue levofloxacin 750mg IV q24 hours, if CrCrl under 50 we will go to [id number] dosing; d/w Georgi since CrCl is borderling at about 50 duration of treatment 14 days through March 05 We will need to give his levofloxacin through port and then repeat blood cultures 1 week after (march 13) SNOMED Code(s): 272292150320 (3) Urinary tract infection Current Visit: Yes Status: Acute patient has bilateral urostomy tubes Qualifiers: Urinary tract infection type: site unspecified Hematuria presence: without hematuria Qualified Code(s): N39.0 - Urinary tract infection, site not specified SNOMED Code(s): 57185012 (4) Immunosuppressed due to chemotherapy Current Visit: Yes Status: Acute SNOMED Code(s): 990515142 (5) AMISHA (acute kidney injury) Current Visit: Yes Status: Acute Likely multifactorial to post renal obstruction and severe sepsis SNOMED Code(s): 67742336, 17341240 (6) Bladder cancer Current Visit: Yes Status: Acute cT2 N0 high grade, invasive urothelial carcinoma. Muscularis propria present and involved in specimen. s/p TURBT, cystoscopy w/ b/l retrograde pyelograms, and b/l ureteral stent placement on 12/21/18 S/p b/l nephrostomy tubes on 01/03/19 following admission for renal failure cisplatin gemcitabine day 1 a week ago hospitalized with symptoms of pyelonephritis. Qualifiers: Bladder location: unspecified site Qualified Code(s): C67.9 - Malignant neoplasm of bladder, unspecified SNOMED Code(s): 096260360 Consult Discharge Plan - Plan Referrals: Sammy Guan MD [Primary Care Provider] - Prescriptions: levoFLOXacin 750 MG/150 ML [Levaquin Premix 750mg/150 mL] 750 mg IVPB DAILY 13 Days #13 bag
--- NOTE | 2019-02-21 16:07 | Oncology Inp Progress Note ---
Date of Encounter: 02/21/19 Time of Encounter: 14:30 (1) Bladder cancer Current Visit: Yes Status: Acute Assessment and plan: Patient with high-grade invasive urothelial carcinoma, status post cystoscopy and transurethral resection of bladder tumor, clinical T2 N0, undergoing neoadjuvant chemotherapy possibly by surgery after completion. He underwent cisplatin gemcitabine day 1 a week ago. Hospitalized with symptoms of pyelonephritis. Qualifiers: Bladder location: unspecified site Qualified Code(s): C67.9 - Malignant neoplasm of bladder, unspecified (2) Sepsis Current Visit: Yes Status: Acute Assessment and plan: Gm negative sepsis, Klebsiella UC. Consider Urology/CT evaluation if need to be replaced. BP normal, feels improved Infectious Disease following and discussed discharge planning today. Daughter is ED RN and desires to give IV antibiotics at home. She notes comp etence with accessing and giving medications through mediport. Discussed family's wishes with social studies teacher to see if home antibiotics by daughter is possible. Continue antibiotics per ID recommendations. Qualifiers: Sepsis type: sepsis due to unspecified organism Qualified Code(s): A41.9 - Sepsis, unspecified organism Oncology: Subj Interval history: Mr. Meredith is awake, sitting in chair this afternoon with at bedside. He notes is feeling well today. He denies fever or chills. Denies nausea, vomiting, constipation, diarrhea, or abdominal pain. He is looking forward to going home, but voices concerns about having to be placed in order to receive antibiotics. His notes that their daughter is an emergency room nurse and experienced in providing IV antibiotics. Daughter is on the phone and states that she has access ports many time and feels very comfortable with adminis tration in accessing and de-accessing testing the port. The family wishes to have the patient go home rather than go to an ECF or another facility for antibiotic administration for the next 13 days. They state that they discussed their desires with Dr. Abida no with infectious disease. - Additional findings Additional findings: General: Alert and oriented, well appearing. Mental Status: Affect appropriate for circumstances Lungs: Clear to auscultation Cardiovascular: Regular rate and rhythm. Abdomen: Soft, nontender; no organomegaly or masses palpable. Bilateral nephrostomy tubes: right with cloudy yellow urine, left clear yellow urine. Extremities: No edema. No calf swelling or tenderness. No joint deformity. Neurologic: Alert, cranial nerves II-XII intact; no focal weakness or sensory abnormalities. Oncology: Obj Data - Labs CBC & Chem 7: 02/21/19 03:01 02/21/19 03:01 Consult Discharge Plan - Plan Referrals: Sammy Guan MD [Primary Care Provider] - Prescriptions: levoFLOXacin 750 MG/150 ML [Levaquin Premix 750mg/150 mL] 750 mg IVPB DAILY 13 Days #13 bag Inpatient Charges Provider: Dr. Allison Poole
[2019-02-21] MEDS: Acetaminophen 325 MG TABLET PO PRN (19:51)
[2019-02-22 04:57] LABS: Hematocrit 24.6 % (37.5-50.1); Hemoglobin 8.4 g/dL (12.9-16.9); Mean Corpuscular HGB Conc 34.1 g/dL (31.6-35.5); Mean Corpuscular Hemoglobin 32.4 pg (28.0-33.3); Mean Platelet Volume 11.2 fL (9.4-12.4); Platelet Count 157 K/mcL (140-400); Red Blood Count 2.59 M/mcL (4.19-5.50); Red Cell Distribution Width 13.6 % (11.5-14.5); White Blood Count 4.5 K/mcL (4.3-11.1)
[2019-02-22 05:16] LABS: BUN/Creatinine Ratio 16 (6-26); Blood Urea Nitrogen 21 mg/dL (8-23); Calcium 8.7 mg/dL (8.6-10.3); Carbon Dioxide 27 mEq/L (23-29); Chloride 104 mEq/L (98-107); Glucose 129 mg/dL (70-105); Osmolality,Calculated 299 (280-300); Potassium 3.4 mEq/L (3.5-5.1); Sodium 142 mEq/L (136-145); eGFR For African Americans > 60 (> 60); eGFR For Non-African Americans 54 (> 60)
[2019-02-22] MEDS: Folic Acid 1 MG TABLET PO SCH (07:49)
[2019-02-22] MEDS: Cyanocobalamin (B-12) 1,000 MCG TABLET PO SCH (07:49)
[2019-02-22] MEDS: levoFLOXacin 750 MG/150 ML 750 MG/150 ML BAG IVPB SCH (07:49)
--- NOTE | 2019-02-22 10:12 | Discharge Summary ---
- NOTES TO OUTPATIENT PROVIDER Notes to Outpatient Provider: Patient would need a posthospital discharge follow-up within 1-2 weeks. Would likely need a repeat blood culture from the port site for resolution of bacteremia after he completes his IV levofloxacin therapy. His prior urine culture as well as port site blood culture both positive for Klebsiella pneumonia. Current hospital cultures are pending Orders not resulted at time of discharge: Pending orders 02/16/19 18:47 Occult Blood,Stool [BF] Stat 02/20/19 14:40 Culture,Blood [BC] Routine Estimated PT Needs at Discharge: Home Health Date of Encounter: 02/22/19 Time of Encounter: 10:10 - Discharge Diagnosis (1) Severe sepsis Priority: Primary Status: Acute (2) ARF (acute renal failure) Priority: Secondary Status: Acute Qualifiers: Acute renal failure type: unspecified Qualified Code(s): N17.9 - Acute kidney failure, unspecified (3) Bladder cancer Priority: Secondary Status: Acute Qualifiers: Bladder location: unspecified site Qualified Code(s): C67.9 - Malignant neoplasm of bladder, unspecified (4) Bicytopenia Priority: Secondary Status: Acute (5) Hyponatremia Priority: Secondary Status: Resolved (6) B12 deficiency Priority: Secondary Status: Acute (7) Unintended weight loss Priority: Secondary Status: Acute (8) DVT prophylaxis Priority: Secondary Status: Acute Hospital course: Mr. Meredith is a 69 year old male with a history of bladder cancer and chronic indwelling nephrostomy tubes who was hospitalized for severe sepsis which was attributed to his urinary tract infection and was placed on empiric antimicrobial therapy. During his short hospital stay he was seen by the infectious disease specialist. There were discussion regarding possible removal of the chemotherapy port however it was agreed upon that patient will be managed with IV antibiotics as an outpatient. He is to receive 2 weeks of levofloxacin and the plan is to repeat blood cultures from the port sites by his primary care physician after he completes the therapy. Discharge discussed with: patient, nurse, social work - Time Spent with Patient Total time spent providing and/or coordinating discharge services: 44 minutes - Discharge Medications Prescriptions: New levoFLOXacin 750 MG/150 ML [Levaquin Premix 750mg/150 mL] 750 mg IVPB DAILY 13 Days #13 bag Ferrous Sulfate 325 mg PO BIDWM #60 tablet Folic Acid 1 mg PO DAILY #30 tablet Omeprazole [PriLOSEC] 40 mg PO DAILY@0730 capsule. Cyanocobalamin (B-12) [Vitamin B12] 1,000 mcg PO DAILY #30 tablet Continued Doxazosin [Cardura] 4 mg PO HS OxyCODONE/APAP 5/325 [Percocet 5/325 MG] 1 tab PO Q8H PRN PRN Reason: Pain Oxybutynin [Ditropan] 5 mg PO HS Docusate [Colace] 100 mg PO HS Tamsulosin [Flomax] 0.4 mg PO HS Amlodipine Besylate 5 mg PO HS Prochlorperazine Maleate [Compazine] 10 mg PO Q6HR PRN #60 tablet PRN Reason: Chemotherapy induced nausea Dexamethasone [Decadron] 4 mg PO AD #24 tab Ondansetron [Zofran ODT] 8 mg SL Q12H PRN #60 tab PRN Reason: Chemotherapy induced nausea Discontinued Acetaminophen/Diphenhydramine [Eql Acetaminophen Pm Gelcap] 1 tab PO HS PRN PRN Reason: Sleep Lisinopril-HCTZ 10-12.5 [Prinzide 10-12.5] 1 tab PO HS Home Medications: Doxazosin [Cardura] 4 mg PO HS 12/20/18 [History] OxyCODONE/APAP 5/325 [Percocet 5/325 MG] 1 tab PO Q8H PRN 01/18/19 [History] Docusate [Colace] 100 mg PO HS 01/25/19 [History] Oxybutynin [Ditropan] 5 mg PO HS 01/25/19 [History] Tamsulosin [Flomax] 0.4 mg PO HS 01/25/19 [History] Amlodipine Besylate 5 mg PO HS 01/27/19 [History] Dexamethasone [Decadron] 4 mg PO AD #24 tab 01/31/19 [Rx] Ondansetron [Zofran ODT] 8 mg SL Q12H PRN #60 tab 01/31/19 [Rx] Prochlorperazine Maleate [Compazine] 10 mg PO Q6HR PRN #60 tablet 01/31/19 [Rx] levoFLOXacin 750 MG/150 ML [Levaquin Premix 750mg/150 mL] 750 mg IVPB DAILY 13 Days #13 bag 07/02/19 [Rx] Cyanocobalamin (B-12) [Vitamin B12] 1,000 mcg PO DAILY #30 tablet 02/22/19 [Rx] Ferrous Sulfate 325 mg PO BIDWM #60 tablet 02/22/19 [Rx] Folic Acid 1 mg PO DAILY #30 tablet 02/22/19 [Rx] Omeprazole [PriLOSEC] 40 mg PO DAILY@0730 capsule. 02/22/19 [Rx] Allergies/Adverse Reactions: Allergy/AdvReac Type Severity Reaction Status Date / Time ceftriaxone [From Rocephin] Allergy Seizure Verified 02/10/19 08:29 Date of admission: 02/16/19 19:21 Primary care physician: Sammy Guan MD Consults: 02/16/19 18:16 Consult to Infectious Diseases [CONS] Routine Consulting Provider: Infectious Disease Gris Reason for Consult: sepsis secondary to complicated UTI - immunocompromised Call Completed: No Consult to Oncology Hematology [CONS] Routine Consulting Provider: Calin Hernandez Reason for Consult: bladder cancer s/p chemotherapy 7 days ago and was refferred for sepsis for admission Call Completed: No 02/17/19 10:28 Consult to Nutrition [CONS] Routine Comment: Consulting Provider: NUTRITION Reason for Dietary Consult: PO Supplementation Discharging clinician: Conrad Ortiz Anticipated date of discharge: 02/22/19 - Constitutional Vitals: Temp Pulse Resp BP Pulse Ox 97.9 F 93 18 141/77 95 02/22/19 07:30 02/22/19 08:00 02/22/19 07:30 02/22/19 07:30 02/22/19 07:30 Exam: GENERAL: NAD, A&O x3, pleasant and conversant SKIN: No skin lesions or rashes, non-jaundiced EYES: EOMI, PERRLA, no sclera icterus HENT: Head atraumatic, no facial asymmetry, frontal and maxillary sinus non- tender, normal hearing, oropharynx and mucosa moist and without any exudates LUNGS: vesicular breath sounds, clear to auscultation, no wheeze, rhonchi, rales or crackles. Non labored respirations HEART: Normal rate and rhythm, no murmurs or rubs ABDOMEN: soft, non-tender, non-distended, bowel sounds x 4 normoactive. Left and right nephrostomy tubes intact with no surrounding erythema, the reservoir nephrostomy bags with Trinh colored urine EXTRMITIES: No LE asymmetry, No LE edema, pedal pulses 1+ and radial pulses 2 + and equal bilaterally NEURO: Speech and comprehension appears intact. PSYCH: Cooperative, non- anxious or irritable, mood and affect is appropriate - Patient Status Disposition: Home Health Service Condition: Fair Functional capacity at discharge: independent ambulation Overall status at discharge: patient is back to baseline - Discharge Instructions Instructions: Anemia (GEN), Sepsis (DC), Urinary Tract Infection in Men (DC) Follow Up With: Sammy Guan MD [Primary Care Provider] - - Diet and Activity Activity: increase activity as tolerated Diet: low fat, low cholesterol
--- NOTE | 2019-02-22 10:44 | Physician Discharge Referral ---
Home Health/Hosp Referral Info Transfer to: Home Health Provider in Charge Post Discharge: PCP - Diagnosis (1) Severe sepsis Status: Acute (2) ARF (acute renal failure) Status: Acute (3) Bladder cancer Status: Acute (4) Bicytopenia Status: Acute (5) Hyponatremia Status: Resolved (6) B12 deficiency Status: Acute (7) Unintended weight loss Status: Acute (8) DVT prophylaxis Status: Acute - Respiratory Orders Smoking Cessation: Smoking cessation has been advised. For more information, call the [email or web address] Quit Line at 6-053-ODHZ-NOW. - Diet/Nutrition Diet/Nutrition Orders: Cardiac - Activity Activity Orders: Ambulate - Services Needed Following services are medically necessary services: Nursing, Home Health Aide - Transfer Medications Prescriptions: Ferrous Sulfate 325 mg PO BIDWM #60 tablet Folic Acid 1 mg PO DAILY #30 tablet levoFLOXacin 750 MG/150 ML [Levaquin Premix 750mg/150 mL] 750 mg IVPB DAILY 13 Days #13 bag Cyanocobalamin (B-12) [Vitamin B12] 1,000 mcg PO DAILY #30 tablet Home Medications: Doxazosin [Cardura] 4 mg PO HS 12/20/18 [History] OxyCODONE/APAP 5/325 [Percocet 5/325 MG] 1 tab PO Q8H PRN 01/18/19 [History] Docusate [Colace] 100 mg PO HS 01/25/19 [History] Oxybutynin [Ditropan] 5 mg PO HS 01/25/19 [History] Tamsulosin [Flomax] 0.4 mg PO HS 01/25/19 [History] Amlodipine Besylate 5 mg PO HS 01/27/19 [History] Dexamethasone [Decadron] 4 mg PO AD #24 tab 01/31/19 [Rx] Ondansetron [Zofran ODT] 8 mg SL Q12H PRN #60 tab 01/31/19 [Rx] Prochlorperazine Maleate [Compazine] 10 mg PO Q6HR PRN #60 tablet 01/31/19 [Rx] levoFLOXacin 750 MG/150 ML [Levaquin Premix 750mg/150 mL] 750 mg IVPB DAILY 13 Days #13 bag 02/21/19 [Rx] Cyanocobalamin (B-12) [Vitamin B12] 1,000 mcg PO DAILY #30 tablet 02/22/19 [Rx] Ferrous Sulfate 325 mg PO BIDWM #60 tablet 02/22/19 [Rx] Folic Acid 1 mg PO DAILY #30 tablet 02/22/19 [Rx] Omeprazole [PriLOSEC] 40 mg PO DAILY@0730 capsule. 02/22/19 [Rx] Allergies/Adverse Reactions: Allergy/AdvReac Type Severity Reaction Status Date / Time ceftriaxone [From Rocephin] Allergy Seizure Verified 02/10/19 08:29 Certification: Further, I certify that my clinical findings support that this patient is homebound (i.e. absences from home require considerable and taxing effort and are for medical reasons or jainism services or infrequently or short duration when for other reasons) because: Homebound Reason: Patient requires assistance of a person or device to safely leave home Attestation: My signature below is to certify that this patient is under my care and that I, or nurse practitioner, or a physician's assistant professor of criminal justice working with me, has a [id number]-or-zeat encounter with this patient.
[2019-02-22 11:01] VITALS: BP 119/78
--- NOTE | 2019-02-23 15:49 | Oncology Inp Progress Note ---
Date of Encounter: 02/22/19 Time of Encounter: 12:00 (1) Bladder cancer Status: Acute Assessment and plan: Patient with high-grade invasive urothelial carcinoma, status post cystoscopy and transurethral resection of bladder tumor, clinical T2 N0, undergoing neoadjuvant chemotherapy possibly by surgery after completion. He underwent cisplatin gemcitabine day 1 a week ago hospitalized with symptoms of pyelonephritis. Gm negative sepsis, Klebsiella UC. Mediport in place F/U in onc clinic in a wk. He is anxious and wants to defer chemo unitil abx course completed. Had qus about upcoming f/u in [place] with surgery. Plan d.w patient and his . Qualifiers: Bladder location: unspecified site Qualified Code(s): C67.9 - Malignant neoplasm of bladder, unspecified Oncology: Subj Interval history: Patient was seen bedside, prior to discharge. No complaints - Head Head exam: Present: atraumatic, normal inspection - Eye Eye exam: Present: sclera anicteric - Respiratory Respiratory exam: Present: CTAB - Cardiovascular Cardiovascular exam: Present: +S1, +S2 - GI/Abdominal GI/Abdominal exam: Present: normal bowel sounds, soft - Neurological Exam Neurological exam: Present: alert, CN II-XII intact, oriented X3 Oncology: Obj Data - Labs CBC & Chem 7: 02/22/19 04:30 02/22/19 04:30 Consult Discharge Plan - Plan Instructions: Folic Acid (By mouth), Levofloxacin (Injection), Vitamin B-12 ( Cyanocobalamin) (By mouth), Urinary Tract Infection in Men (DC), Sepsis (DC), Anemia (GEN) Referrals: Sammy Guan MD [Primary Care Provider] - Lauren Givens CNP [Advanced Practice Nurse] - 03/02/19 8:30 am (you have 3 appointments this day at the cancer center the first on starts at 0830 on March 02, 2019) Prescriptions: Ferrous Sulfate 325 mg PO BIDWM #60 tablet Folic Acid 1 mg PO DAILY #30 tablet levoFLOXacin 750 MG/150 ML [Levaquin Premix 750mg/150 mL] 750 mg IVPB DAILY 13 Days #13 bag Cyanocobalamin (B-12) [Vitamin B12] 1,000 mcg PO DAILY #30 tablet Inpatient Charges Provider: Dr. Allison Poole Follow up - Inpatient: [id number]
== END 2019-02-22 13:15 | disposition home health service (06) | DRG 698 ==
LOC: EMEROOARM 15:37 → 2NNU 19:21 → SUATTDRO 19:21 → 2NNU 20:02
PROVIDERS: ADMIT Internal Medicine Nephrology; ATTEND Pharmacist